=== PATIENT | male | born 2000 | race African-American/Black ===

== ENCOUNTER 2022-12-08 14:39 | Inpatient (IN) | payer MEDICAID, SELFPAY ==
[2022-12-08 14:55] VITALS: BMI 14.9
[2022-12-08 15:04] VITALS: BP 112/82; PULSE 72; RESP 15; TEMP 37.2; O2SAT 98
--- NOTE | 2022-12-08 15:26 | ED.C_ITS ---
HPI - Psych General: Chief Complaint: Psychiatric Symptoms Stated Complaint: 96 Hold Time Seen by Provider: 12/08/22 15:20 Source: patient Mode of arrival: other (Accompanied by law enforcement) History of Present Illness: 22-year-old male brought into the emergency room and accompanied by police. Family filled out 96-hour paperwork called and had certified at the court house. We read the patient the concerns from the affidavits in his responses simply shrugged his shoulders he does not feel these are big issues he denies any suicidal or homicidal ideation patient is moderately cachectic he does admit he has been losing weight lately when asked him about not taking care of himself he got a little bit teary-eyed and emotional but he was not confrontational. He denies suicidal or homicidal ideation every time he is asked. He states he simply does not understand why he was here he denies previously being hospitalized for mental health issues he has not seen by psychiatry he is not currently on any medications. No auditory or visual hallucinations. Associated symptoms: Deny auditory hallucinations, visual hallucinations, delusions, depression, homicidal ideation, suicidal ideation or racing thoughts Review of Systems Const: Denies: fever(s), chills, fatigue or malaise ENMT: Denies: throat pain, ear or mastoid pain, nasal discharge or nasal congestion Card: Denies: chest pain, edema, dyspnea on exertion or orthopnea Resp: Denies: dyspnea, productive cough or non-productive cough GI: Denies: abdominal pain, nausea, vomiting, hematemesis, coffee ground emesis, diarrhea, constipation, bloating, hematochezia or melena : Denies: flank pain, dysuria, urinary frequency or urinary urgency Skin/Breast: Denies: rash or pruritus Psych: Denies: depression, visual hallucinations, auditory hallucinations, suicidal ideation or homicidal ideation Physical Exam Const: COMMON NORMALS: no acute distress GENERAL APPEARANCE: cooperative and comfortable ORIENTATION/CONSCIOUSNESS: Yes awake, Yes oriented to person, Yes oriented to place and Yes oriented to time HENMT: COMMON NORMALS: normocephalic, atraumatic and hearing grossly normal bilaterally HEAD & SCALP: normocephalic and atraumatic Neuro: SENSORIUM/ORIENTATION: Yes oriented to person, Yes oriented to place and Yes oriented to time Psych: COMMON NORMALS: mental status grossly normal, Normal thought process present, cooperative and speech normal APPEARANCE: Yes grossly normal ATTITUDE: Yes Withdrawn affect present ACTIVITY/MOTOR BEHAVIOR: Yes Avoids eye contact (attititude/behavior) SPEECH: Yes normal speech MOOD & AFFECT: Yes depressed mood and Yes Flat affect present THOUGHT PROCESS: Normal thought process present THOUGHT CONTENT: No delusions Skin: COMMON NORMALS: no rashes or lesions noted GENERAL SKIN EXAM: no rashes or lesions noted Course Vital Signs: Vital signs: Vital Signs Temperature 98.5 F 12/13/22 21:11 Pulse Rate 102 H 12/14/22 05:52 Respiratory Rate 17 12/14/22 05:52 Blood Pressure 103/75 12/14/22 05:52 Pulse Oximetry 98 12/14/22 05:52 Oxygen Delivery Me thod Room Air 12/14/22 05:52 MDM - Psych Medical Decision Making Patient has a very flat affect he has not been engaging with family family saw the 96-hour hold from the court which is why he was brought in. Discussed with Dr. Aguayo. He wishes to go ahead and evaluate the patient we will admit him to the floor. Patient would answer most questions but at times when I challenged him about taking care of himself engaging with others she got very tearful and refused to give any further details or explanation. Medical Records I reviewed the patient's medical records. Lab Data I reviewed the patient's lab results. 12/08/22 16:11 12/08/22 16:11 Laboratory Results WBC 8.4 10^3/uL (4.0-10.0) 12/08/22 16:11 RBC 5.07 10^6/uL (4.1-5.3) 12/08/22 16:11 Hgb 15.6 g/dL (11.7-16.6) 12/08/22 16:11 Hct 44.1 % (42.0-52.0) 12/08/22 16:11 MCV 87.0 fl (80-94) 12/08/22 16:11 MCH 30.8 pg (28.0-34.0) 12/08/22 16:11 MCHC 35.4 g/dL (30.0-36.0) 12/08/22 16:11 RDW 12.5 % (12.1-15.1) 12/08/22 16:11 Plt Count 207 10^3/cmm (130-400) 12/08/22 16:11 MPV 8.8 fL (7.4-10.4) 12/08/22 16:11 Neut % (Auto) 75.8 % 12/08/22 16:11 Lymph % (Auto) 16.0 % 12/08/22 16:11 [place] % (Auto) 5.5 % 12/08/22 16:11 Eos % (Auto) 2.1 % 12/08/22 16:11 Baso % (Auto) 0.4 % 12/08/22 16:11 Neut # (Auto) 6.36 10^3/uL (1.8-7.7) 12/08/22 16:11 Lymph # (Auto) 1.3 10^3/uL (0.8-4.8) 12/08/22 16:11 [place] # (Auto) 0.5 10^3/uL (0.2-0.9) 12/08/22 16:11 Eos # (Auto) 0.2 10^3/uL (0.0-0.8) 12/08/22 16:11 Baso # (Auto) 0.0 10^3/uL (0.0-0.1) 12/08/22 16:11 Nucleated RBC % (auto) 0 % 12/08/22 16:11 Nucleated RBCs # 0.0 /100WBC 12/08/22 16:11 Sodium 139 mmol/L (136-145) 12/08/22 16:11 Potassium 4.3 mmol/L (3.5-5.1) 12/08/22 16:11 Chloride 102 mmol/L (98-107) 12/08/22 16:11 Carbon Dioxide 26 mmol/L (22-29) 12/08/22 16:11 Anion Gap 15.3 (5-19) 12/08/22 16:11 BUN 10 mg/dL (6-20) 12/08/22 16:11 Creatinine 0.6 mg/dL (0.7-1.2) L 12/08/22 16:11 GFR Calculation 200.3 mL/min (90-130) H 12/08/22 16:11 Glucose 96 mg/dL (65-115) 12/08/22 16:11 Calculated Osmolality 287 mOsm/kg (285-295) 12/08/22 16:11 Calcium 9.4 mg/dL (8.5-10.5) 12/08/22 16:11 Total Bilirubin 0.5 mg/dL (0.15-1.2) 12/08/22 16:11 AST 15 U/L (0-40) 12/08/22 16:11 ALT 16 U/L (0-41) 12/08/22 16:11 Alkaline Phosphatase 75 U/L (40-130) 12/08/22 16:11 Total Protein 7.5 g/dL (6.6-8.7) 12/08/22 16:11 Albumin 4.8 g/dL (3.5-5.2) 12/08/22 16:11 Globulin 2.7 g/dL (1.3-4.6) 12/08/22 16:11 Salicylates < 0.3 mg/dL (3-10) L 12/08/22 16:11 Acetaminophen < 5.0 ug/mL (10-30) L 12/08/22 16:11 Ethyl Alcohol < 10 mg/dL (0-10) 12/08/22 16:11 Discharge Plan Discharge Patient Disposition: Admitted As Inpatient Admit Provider: Fidel Aguayo Clinical Impression: Psychosis Condition: Stable Coding Level of Care Code ED [employer] for [employer]
[2022-12-08 16:21] LABS: Basophils % 0.4 %; Eosinophils # 0.2 10^3/uL (0.0-0.8); Eosinophils % 2.1 %; Hematocrit 44.1 % (42.0-52.0); Hemoglobin 15.6 g/dL (11.7-16.6); Lymphocytes # 1.3 10^3/uL (0.8-4.8); Mean Corpuscular HGB Conc 35.4 g/dL (30.0-36.0); Mean Corpuscular Hemoglobin 30.8 pg (28.0-34.0); Mean Platelet Volume 8.8 fL (7.4-10.4); Monocytes # 0.5 10^3/uL (0.2-0.9); Monocytes % 5.5 %; Neutrophils # 6.36 10^3/uL (1.8-7.7); Neutrophils % 75.8 %; Nucleated Red Blood Cells % 0 %; Platelet Count 207 10^3/cmm (130-400); Red Blood Count 5.07 10^6/uL (4.1-5.3); Red Cell Distribution Width 12.5 % (12.1-15.1); White Blood Count 8.4 10^3/uL (4.0-10.0)
[2022-12-08 16:36] LABS: Alanine Aminotransferase 16 U/L (0-41); Albumin Level 4.8 g/dL (3.5-5.2); Alkaline Phosphatase 75 U/L (40-130); Anion Gap 15.3 (5-19); Aspartate Amino Transferase 15 U/L (0-40); Blood Urea Nitrogen 10 mg/dL (6-20); Calcium 9.4 mg/dL (8.5-10.5); Carbon Dioxide 26 mmol/L (22-29); Chloride 102 mmol/L (98-107); Globulin 2.7 g/dL (1.3-4.6); Glomerular Filtration Rate 200.3 mL/min (90-130); Glucose 96 mg/dL (65-115); Osmolality Calculated 287 mOsm/kg (285-295); Potassium 4.3 mmol/L (3.5-5.1); Sodium 139 mmol/L (136-145); Total Bilirubin 0.5 mg/dL (0.15-1.2); Total Protein 7.5 g/dL (6.6-8.7)
[2022-12-08 16:41] LABS: Acetaminophen < 5.0 ug/mL (10-30); Alcohol Level < 10 mg/dL (0-10); Salicylate < 0.3 mg/dL (3-10)
--- NOTE | 2022-12-08 16:41 | PC.NURSE ---
96 hr patient rights reviewed with patient with [facility] security shift supervisor Mik @[phone]. Patient copy left at bedside. No needs or questions at this time.
[2022-12-08 20:37] LABS: Add Urine Microscopic? NO; Charge for UA Resulting for Rev
[2022-12-08 20:58] LABS: Amphetamines Screen Urine Negative (Negative); Barbiturates Screen Urine Negative (Negative); Benzodiazepines Screen Urine Negative (Negative); Bilirubin Urine Neg (Negative); Blood Urine Neg (Negative); Cocaine Screen Urine Negative (Negative); Glucose Urine UA Norm (Normal); Ketones Urine Negative (Negative); Leukocyte Esterase Urine Negative (Negative); Nitrate Urine Negative (Negative); Opiate Screen Urine Negative (Negative); PCP Screen Urine Negative (Negative); Protein Urine Neg (Negative); THC Screen Urine Positive (Negative); Urine Appearance Clear (CLEAR); Urine Color Light yellow (Yellow); Urobilinogen Urine Norm (Negative); pH Urine 7 (5-7)
[2022-12-08 21:05] VITALS: BP 134/93; PULSE 87; RESP 17; TEMP 36.8; O2SAT 99
--- NOTE | 2022-12-08 21:37 | PC.NURSE ---
Pt arrived to NPU w/RN and security at side. Pt presents highly anxious, speaks in mumbled tone. Cooperative with assessment.
[2022-12-09 06:00] VITALS: BP 103/70; PULSE 69; RESP 16; TEMP 36.8; O2SAT 100
--- NOTE | 2022-12-09 11:44 | W.PM.NPUH&PS ---
Providers/Chief Complaint Admitting Physician: Fidel Aguayo MD Chief Complaint: 96 Hold HPI NPU History of Present Illness Isamar Baca is a 22 year old male who presented to the emergency department with the following report: Chief Complaint: Psychiatric Symptoms Stated Complaint: 96 Hold Time Seen by Provider: 12/08/22 15:20 Source: patient Mode of arrival: other (Accompanied by law enforcement) History of Present Illness: 22-year-old male brought into the emergency room and accompanied by police. Family filled out 96-hour paperwork called and had certified at the court [facility]. We read the patient the concerns from the affidavits in his responses simply shrugged his shoulders he does not feel these are big issues he denies any suicidal or homicidal ideation patient is moderately cachectic he does admit he has been losing weight lately when asked him about not taking care of himself he got a little bit teary-eyed and emotional but he was not confrontational. He denies suicidal or homicidal ideation every time he is asked. He states he simply does not understand why he was here he denies previously being hospitalized for mental health issues he has not seen by psychiatry he is not currently on any medications. No auditory or visual hallucinations. Associated symptoms: Deny auditory hallucinations, visual hallucinations, delusions, depression, homicidal ideation, suicidal ideation or racing thoughts. He was admitted to the neuropsychiatric unit for definitive treatment of those issues. He presents today reporting that he has never been in a psychiatric hospital or receive psychiatric care. He has never been on psychiatric medications now or in the past and reports he does not know why he is here on a 96-hour hold. We discussed the affidavits suggesting that he has lost considerable amount of weight and is not taking care of himself and he only acknowledges that he has lost considerable weight recently. He reports that he vapes and that started in the last year or so but denied alcohol marijuana or any other illicit drug use. He has never been to rehab or had a DUI denies any drug and alcohol charges. He reports that he has never had any psychiatric symptoms that he is aware of and had no explanation for the sudden change in weight though he reports he is always been thin nor the recent change in his self-care. We discussed needing to reach out to his family for some collateral information which he did not refuse. Patient denied symptoms consistent with depression, anxiety, schizophrenia, bipolar, ADHD, PTSD or personality disorders. Psychiatric history: As above. Substance abuse history: As above. Family history: He denies any mental health or addiction issues that run in the family and denied any suicide attempts or completions in his family. Developmental history: He reports that he had no issues at and reports that he learned to walk and talk and met his developmental milestones on time. He reports that he did not need speech therapy, learning support, emotional support or special education classes. Psychosocial history: He reports that his parents were together when he was born but they did split up. He reports that his parents are both from [place]. He reports that he has a younger brother that is a product of that same union and that his mother does not have any other children but that his father has 2 other children. He reports that his childhood was fine and that there was no neglect or emotional, physical or sexual abuse. He denied any child protective services or any traumatic events throughout his life he denied any symptoms consistent with PTSD nightmares or flashbacks etc. He endorsed getting to the 10th grade and getting his GED and doing some college courses. He reports that he is heterosexual and his longest relationship was 3 years. He has never been , has never had children, has never been in the and he endorses being a Christianity. 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 Because that was in [place]. He reports he currently lives in a house with his mother and one of her coworkers. Legal history: He denied any legal peril. Medical history: He denies any issues other than his recent significant weight loss. Meds NPU Home Medications Medication Instructions Recorded Confirmed Last Taken Type No Known Home Medications 12/08/22 12/08/22 Unknown History Allergies Allergy/AdvReac Type Severity Reaction Status Date / Time No Known Allergies Allergy Verified 12/08/22 21:48 Mental Status Exam MSE Comments: This is a underweight/cachectic -[place]ian male with Twis that are somewhat unkempt in hospital scrubs with limited grooming and eye contact. He was notably pungent from across the room. No abnormal movements except for mild psychomotor retardation. Cooperative with exam in no acute distress. Speech was limited and decreased rate and volume. Mood described as fine, affect subdued and somewhat guarded. Thought process linear. Thought content: Patient denied suicidal or homicidal ideation, there were no delusions reported but he seems somewhat guarded/paranoid, he denied auditory or visual hallucinations. Attention and concentration appeared intact and memory seemed reliable but was limited and without meat, but none were formally tested. He is alert and oriented to person and place. Insight and judgment appear limited impulse control appears limited Vitals/I&O/Wt Last Vital Signs Temp 98.2 F 12/09/22 06:00 Pulse 69 12/09/22 06:00 Resp 16 12/09/22 06:00 BP 103/70 12/09/22 06:00 Pulse Ox 100 12/09/22 06:00 O2 Del Method Room Air 12/09/22 06:00 Weight last 48 hrs Weight 49.895 kg Data NPU 12/08/22 16:11 12/08/22 16:11 A&P Assessment and plan (1) Psychosis: (2) Schizophreniform disorder: Plan This is a 22-year-old male of descent who presents on a 96-hour hold reporting a lack of knowledge as to what the concerns would be but reports of recent change in appetite with weight loss and poor self-care presenting looking fairly unkempt. 1. Continue off medication for now. 2. Continue every 15 minute checks for safety. 3. Encourage individual, group and milieu therapy. 4. We will get collateral information from family to get a sense of what other symptoms they may have seen. Patient presents unkempt and raises concern for possible prodromal schizophrenia with significant presence of negative symptoms.. Involuntary Hold Information 96 Hour Hold: 96 Hour Involuntary Admission: Yes 96 Hour Hold Ending Date: 12/14/22 96 Hour Hold Ending Time: 15:16 Attestations NPU Medical Necessity Statement*: Inpatient hospitalization is medically necessary and the clinically appropriate intervention at this time. We will monitor medications and make changes as indicated. He will be in the hospital for over 2 midnights. Likely length of stay 4 to 6 days. Coding Level of Care Code Acute Code for g Fwd Diagnoses Psychosis F29 Schizophreniform disorder F20.81
[2022-12-09 14:00] VITALS: BP 103/69; PULSE 90; RESP 15; TEMP 36.8; O2SAT 98
[2022-12-09 20:47] VITALS: BP 108/71; PULSE 90; RESP 16; TEMP 37; O2SAT 95
[2022-12-10 06:00] VITALS: BP 103/68; PULSE 112; RESP 17; TEMP 36.8; O2SAT 98
[2022-12-10 14:00] VITALS: BP 110/74; PULSE 85; RESP 15; TEMP 36.9; O2SAT 98
--- NOTE | 2022-12-10 17:13 | P.NPUPN_ITS ---
Subjective NPU Subjective: Patient presented today reporting that he is feeling fine. He now has backtracked on comments about weight loss now reporting that its been limited and insignificant weight loss. We discussed concerns that this presentation represents schizophreniform versus early schizophrenia and vet and really appears he would benefit from an antipsychotic like Invega or or Abilify. We discussed the risks, benefits and alternatives of those medications and is unclear if he understood and he refused to consider medication as is documented in this note. He spent most of the day isolated per staff at this sports book writer's observation. He spent most of the time in his room with his blanket over his head and propped up underneath almost like a tent. Mental Status Exam MSE Comments: This is a underweight/cachectic -Vietnamese male with Twis that are somewhat unkempt in hospital scrubs with limited grooming and eye contact. He was notably pungent from across the room. No abnormal movements except for mild psychomotor retardation. Cooperative with exam in no acute distress. Speech was limited and decreased rate and volume. Mood described as fine, affect subdued and somewhat guarded. Thought process linear. Thought content: Patient denied suicidal or homicidal ideation, there were no delusions reported but he seems somewhat guarded/paranoid, he denied auditory or visual hallucinations. Attention and concentration appeared intact and memory seemed reliable but was limited and without meat, but none were formally tested. He is alert and oriented to person and place. Insight and judgment appear limited impulse control appears limited Vitals/I&O/Wt Last Vital Signs Temp 98.8 F 12/10/22 20:40 Pulse 88 12/10/22 20:40 Resp 16 12/10/22 20:40 BP 117/80 12/10/22 20:40 Pulse Ox 98 12/10/22 20:40 O2 Del Method Room Air 12/10/22 20:40 Data NPU 12/08/22 16:11 12/08/22 16:11 A&P Assessment and plan (1) Psychosis: (2) Schizophreniform disorder: Plan This is a 22-year-old male of descent who presents on a 96-hour hold reporting a lack of knowledge as to what the concerns would be but reports of recent change in appetite with weight loss and poor self-care presenting looking fairly unkempt. 1. Continue off medication for now. We will offer him antipsychotic either Abilify or Invega daily. 2. Continue every 15 minute checks for safety. 3. Encourage individual, group and milieu therapy. 4. We will get collateral information from family to get a sense of what other symptoms they may have seen. Patient presents unkempt and raises concern for possible prodromal schizophrenia with significant presence of negative symptoms. Question of whether his current functioning would warrant an extension to a 21- day hold. Involuntary Hold Information 96 Hour Hold: 96 Hour Involuntary Admission: Yes 96 Hour Hold Ending Date: 12/14/22 96 Hour Hold Ending Time: 15:16 Attestations NPU Medical Necessity Statement*: Inpatient hospitalization is medically necessary and the clinically appropriate intervention at this time. We will monitor medications and make changes as indicated. Likely length of stay 4 to 6 days. Coding Level of Care Code Acute Code for Chg Fwd Diagnoses Psychosis F29 Schizophreniform disorder F20.81
[2022-12-10 20:40] VITALS: BP 117/80; PULSE 88; RESP 16; TEMP 37.1; O2SAT 98
[2022-12-11 06:00] VITALS: BP 112/77; PULSE 109; RESP 17; O2SAT 98
--- NOTE | 2022-12-11 07:32 | P.NPUPN_ITS ---
Subjective NPU Subjective: Patient presents today reporting that he is feeling okay. He continues to be resistant to the idea of medication. He continues to deny any symptoms that would be consistent with our concerns or schizophrenia. He denies odd thinking, magical thinking, thought insertion, the ability to read people's minds, paranoia etc. but it is unclear whether this represents what he feels needs to be said. He continues to deny feeling that there is a need for medication we talked about continuing to talk with his family to make sure were clear about his presentation. Mental Status Exam MSE Comments: This is a underweight/cachectic -Luxembourger male with Twis that are somewhat unkempt in hospital scrubs with limited grooming and eye contact. He was notably pungent from across the room. No abnormal movements except for mild psychomotor retardation. Cooperative with exam in no acute distress. Speech was limited and decreased rate and volume. Mood described as fine, affect subdued and somewhat guarded. Thought process linear. Thought content: Patient denied suicidal or homicidal ideation, there were no delusions reported but he seems somewhat guarded/paranoid, he denied auditory or visual hallucinations. Attention and concentration appeared intact and memory seemed reliable but was limited and without meat, but none were formally tested. He is alert and oriented to person and place. Insight and judgment appear limited impulse control appears limited Vitals/I&O/Wt Last Vital Signs Temp 98.8 F 12/10/22 20:40 Pulse 109 H 12/11/22 06:00 Resp 17 12/11/22 06:00 BP 112/77 12/11/22 06:00 Pulse Ox 98 12/11/22 06:00 O2 Del Method Room Air 12/11/22 06:00 Data NPU 12/08/22 16:11 12/08/22 16:11 A&P Assessment and plan (1) Psychosis: (2) Schizophreniform disorder: Plan This is a 22-year-old male of descent who presents on a 96-hour hold reporting a lack of knowledge as to what the concerns would be but reports of recent change in appetite with weight loss and poor self-care presenting looking fairly unkempt. 1. Continue off medication for now. We will offer him antipsychotic either Ab ilify or Invega daily. He continues to refuse. 2. Continue every 15 minute checks for safety. 3. Encourage individual, group and milieu therapy. 4. We will get collateral information from family to get a sense of what other symptoms they may have seen. Patient presents unkempt and raises concern for possible prodromal schizophrenia with significant presence of negative symptoms. Question of whether his current functioning would warrant an extension to a 21- day hold. Involuntary Hold Information 96 Hour Hold: 96 Hour Involuntary Admission: Yes 96 Hour Hold Ending Date: 12/14/22 96 Hour Hold Ending Time: 15:16 Attestations NPU Medical Necessity Statement*: Inpatient hospitalization is medically necessary and the clinically appropriate intervention at this time. We will monitor medications and make changes as indicated. Likely length of stay 3-5 days. Coding Level of Care Code Acute Code for [facility] Fwd Diagnoses Psychosis F29 Schizophreniform disorder F20.81
[2022-12-11 14:00] VITALS: BP 112/77; PULSE 85; RESP 16; TEMP 37.1; O2SAT 98
--- NOTE | 2022-12-11 20:20 | PC.NURSE ---
PT IN ROOM WHILE ASSESSMENT WAS COMPLETED. PT DENIES SI/HI AND AVH AT THIS TIME. PT CONTINUES TO TELL THE STORY OF THE RESIDENTIAL AND HOW WAS MISTREATED IN THE [facility]. THIS RN STOPPED HIM AND INFORMED HIM HE HAS TOLD ME THAT STORY MANY TIMES. PT THEN STOPPED AND SAID. WELL THEN JUST NOTE I AM HOMICIDAL IF I GO BACK TO THAT RESIDENTIAL AND THEY TREAT ME THAT WAY AGAIN. THIS RN INFORMED PT IT WOULD BE NOTED.
[2022-12-11 22:00] VITALS: BP 103/74; PULSE 94; RESP 18; TEMP 37.1; O2SAT 97
[2022-12-12 06:00] VITALS: RESP 14
[2022-12-12 13:54] VITALS: BP 100/68; PULSE 112; RESP 16; TEMP 36.6; O2SAT 99
[2022-12-12] MEDS: multivitamin therapeutic Tablet 1 TAB PO (16:57)
[2022-12-12] MEDS: cyanocobalamin 1,000 mcg Tablet 1000 MCG PO (16:57)
[2022-12-12] MEDS: pyridoxine 50 mg Tablet PO (16:57)
[2022-12-12] MEDS: omega-3 fatty acids 1,000 mg Capsule 1000 MG PO (16:57)
[2022-12-12] MEDS: ergocalciferol (vitamin D2) 50,000 Unit Capsule 50000 UNIT PO (16:57)
--- NOTE | 2022-12-12 18:08 | P.NPUPN_ITS ---
Subjective NPU Subjective: Patient presented today reporting that he is doing fine. We continue the conversation about his circumstance and what we need to consider a 21-day hold for his safety. This has been advanced further by getting an accurate weight today which was 88 pounds. We discussed the fact that he has been eating reasonably since he got here meaning that he did not do an accurate weight when he came in here and may have weighed less. We continue to try to question what led to this significant dietary change and weight loss phenomena including whether he felt he was being poisoned or something reflective of a psychotic nature and he continues to deny he continues to refuse a plan to initiate me dication. Mental Status Exam MSE Comments: This is a underweight/cachectic -[place] male with Twis that are somewhat unkempt in hospital scrubs with limited grooming and eye contact. He was notably pungent from across the room. No abnormal movements except for mild psychomotor retardation. Cooperative with exam in no acute distress. Speech was limited and decreased rate and volume. Mood described as fine, affect subdued and somewhat guarded. Thought process linear. Thought content: Patient denied suicidal or homicidal ideation, there were no delusions reported but he seems somewhat guarded/paranoid, he denied auditory or visual hallucinations. Attention and concentration appeared intact and memory seemed reliable but was limited and without meat, but none were formally tested. He is alert and oriented to person and place. Insight and judgment appear limited impulse control appears limited Vitals/I&O/Wt Last Vital Signs Temp 98.6 F 12/12/22 20:59 Pulse 89 12/12/22 20:59 Resp 17 12/12/22 20:59 BP 110/76 12/12/22 20:59 Pulse Ox 97 12/12/22 20:59 O2 Del Method Room Air 12/12/22 20:59 Weight last 48 hrs Weight 40.143 kg Data NPU 12/08/22 16:11 12/08/22 16:11 A&P Assessment and plan (1) Psychosis: (2) Schizophreniform disorder: Plan This is a 22-year-old male of descent who presents on a 96-hour hold re porting a lack of knowledge as to what the concerns would be but reports of recent change in appetite with weight loss and poor self-care presenting looking fairly unkempt. 1. Continue off medication for now. We will offer him antipsychotic either Abilify or Invega daily. He continues to refuse. 2. Continue every 15 minute checks for safety. 3. Encourage individual, group and milieu therapy. 4. We will get collateral information from family to get a sense of what other symptoms they may have seen. Patient presents unkempt and raises concern for possible prodromal schizophrenia with significant presence of negative symptoms. Question of whether his current functioning would warrant an extension to a 21- day hold. 5. Appreciate spread cutter/dietary consult. Started some vitamins that were recommended. Also added dietary changes. Weight at 88 pounds at 6 foot continue to raise questions that there are parts of his story of why he stopped eating that he is not sharing though it could be part of a negative symptom cluster of schizophreniform/schizophrenia. Involuntary Hold Information 96 Hour Hold: 96 Hour Involuntary Admission: Yes 96 Hour Hold Ending Date: 12/14/22 96 Hour Hold Ending Time: 15:16 Attestations NPU Medical Necessity Statement*: Inpatient hospitalization is medically necessary and the clinically appropriate intervention at this time. We will monitor medications and make changes as indicated. Likely length of stay 2-4 days. Coding Level of Care Code Acute Code for Chg Fwd Diagnoses Psychosis F29 Schizophreniform disorder F20.81
[2022-12-12 20:59] VITALS: BP 110/76; PULSE 89; RESP 17; TEMP 37; O2SAT 97
--- NOTE | 2022-12-12 21:15 | PC.NURSE ---
IN BED READING BOOK, AROUSE TO VOICE. PT CONTINUES TO BE WITHDRAWN THIS SHIFT. PT DENIES PAIN, SI/HI AND AVH AT THIS TIME. EDUCATION PROVIDED ON NUTRITIION AND SUPPLEMENTATION. ENCOURAGED TO COME UP FOR A SNACK AND AN ENSURE IN ABOUT 20 MINUTES, PT STATES HE WILL COME AND GET IT. SPOKE ABOUT HIS RECENT WEIGHT LOSS AND IF HE LIKED THE SUPPLEMENTS THAT WERE ORDERED LIKE THE 2CAL, PT STATES ITS GOOD, I'LL DRINK IT. DENIES ANXIETY OR NEED FOR SLEEP AID TONIGHT. ALL QUESTIONS WERE ANSWERED AND SUPPORT WAS VOICED. PT DID COME UP TO NURSES STATION AND HE RECEIVED HIS ENSURE AND SNACKS.
[2022-12-13] MEDS: pyridoxine 50 mg Tablet PO (08:30)
[2022-12-13] MEDS: multivitamin therapeutic Tablet 1 TAB PO (08:31)
[2022-12-13] MEDS: cyanocobalamin 1,000 mcg Tablet 1000 MCG PO (08:31)
[2022-12-13] MEDS: omega-3 fatty acids 1,000 mg Capsule 1000 MG PO (08:31)
[2022-12-13 14:00] VITALS: BP 101/67; PULSE 102; RESP 15; TEMP 37.1; O2SAT 97
--- NOTE | 2022-12-13 18:41 | W.PM.NPUPNS ---
Subjective NPU Subjective: Patient presented today reporting that he is doing okay. He continues to deny a need for medication. We agreed that we would have a meeting with his mother to try to get some greater insight into his situation given his lack of verbosity. We talked about the 21-day hold which would be likely submitting the paperwork tomorrow but we would like to get a sense of mom's position about the weight loss/anorexia and what other symptoms seem to be present that may be he is not being completely transparent about. Mental Status Exam MSE Comments: This is a underweight/cachectic -Citizen Of [place] male with twists that are somewhat unkempt in hospital scrubs with limited grooming and eye contact. No abnormal movements except for mild psychomotor retardation. Cooperative with exam in no acute distress. Speech was limited and decreased rate and volume. Mood described as fine, affect subdued and somewhat guarded. Thought process linear. Thought content: Patient denied suicidal or homicidal ideation, there were no delusions reported but he seems somewhat guarded/paranoid, he denied auditory or visual hallucinations. Attention and concentration appeared intact and memory seemed reliable but was limited and without meat, but none were formally tested. He is alert and oriented to person and place. Insight and judgment appear limited impulse control appears limited Vitals/I&O/Wt Last Vital Signs Temp 98.5 F 12/13/22 21:11 Pulse 91 12/13/22 21:11 Resp 16 12/13/22 21:11 BP 99/66 12/13/22 21:11 Pulse Ox 98 12/13/22 21:11 O2 Del Method Room Air 12/13/22 21:11 Weight last 48 hrs Weight 40.143 kg Data NPU 12/08/22 16:11 12/08/22 16:11 A&P Assessment and plan (1) Psychosis: (2) Schizophreniform disorder: Plan This is a 22-year-old male of descent who presents on a 96-hour hold reporting a lack of knowledge as to what the concerns would be but reports of recent change in appetite with weight loss and poor self-care presenting looking fairly unkempt. 1. Continue off medication for now. We will offer him antipsychotic either Abilify or Invega daily. He continues to refuse. 2. Continue every 15 minute checks for safety. 3. Encourage individual, group and milieu therapy. 4. We will get collateral information from family to get a sense of what other symptoms they may have seen. Patient presents unkempt and raises concern for possible prodromal schizophrenia with significant presence of negative symptoms. Question of whether his current functioning would warrant an extension to a 21-day hold. 5. Appreciate cosmetic consultant/dietary consult. Started some vitamins that were recommended. Also added dietary changes. Weight at 88 pounds at 6 foot continue to raise questions that there are parts of his story of why he stopped eating that he is not sharing though it could be part of a negative symptom cluster of schizophreniform/schizophrenia. 7. Discussed getting a family meeting with mother to make sure there are no symptoms we are missing to explore the appropriateness of 21-day hold but we managed his sequela of his likely thought disorder with the anorexia. Involuntary Hold Information 96 Hour Hold: 96 Hour Involuntary Admission: Yes 96 Hour Hold Ending Date: 12/14/22 96 Hour Hold Ending Time: 15:16 Attestations NPU Medical Necessity Statement*: Inpatient hospitalization is medically necessary and the clinically appropriate intervention at this time. We will monitor medications and make changes as indicated. Likely length of stay 2-4 days. Question as to whether there will be a 21-day hold extending the time here still exists. Coding Level of Care Code Acute Code for [facility] Fwd Diagnoses Psychosis F29 Schizophreniform disorder F20.81
[2022-12-13 21:11] VITALS: BP 99/66; PULSE 91; RESP 16; TEMP 36.9; O2SAT 98
[2022-12-14 05:52] VITALS: BP 103/75; PULSE 102; RESP 17; O2SAT 98
[2022-12-14] MEDS: cyanocobalamin 1,000 mcg Tablet 1000 MCG PO (09:59)
[2022-12-14] MEDS: pyridoxine 50 mg Tablet PO (09:59)
[2022-12-14] MEDS: omega-3 fatty acids 1,000 mg Capsule 1000 MG PO ×2 (09:59→21:24)
[2022-12-14] MEDS: multivitamin therapeutic Tablet 1 TAB PO (09:59)
[2022-12-14 14:00] VITALS: BP 100/68; PULSE 97; RESP 15; TEMP 37.1; O2SAT 97
--- NOTE | 2022-12-14 16:45 | W.PM.NPUPNS ---
Subjective NPU Subjective: Patient presented today reporting that he is doing okay. However his mother came in reported that all the concerns that we have are valid. She reports that he has become very socially isolative, that he is not taking any phone calls from friends, that he is not showering or doing his hygiene and even with her attempted insistence, that he is not actually enrolled in school and that he is pretending to be enrolled in she brought his computer and he went on the computer and then reported that they must of locked him out because he missed a test. She reports the weight loss has been dramatic and that he has never been as skinny as he is now. He has no real answers to these questions or concerns as to why he has had this change. We discussed the 21-day hold hearing tomorrow and that one of our goals for this hospitalization is for him to gain some of the weight back and that we will go to every other day weights. Mental Status Exam MSE Comments: This is a underweight/cachectic -[place] male with twists that are somewhat unkempt in hospital scrubs with limited grooming and eye contact. No abnormal movements except for mild psychomotor retardation. Cooperative with exam in no acute distress. Speech was limited and decreased rate and volume. Mood described as okay, affect subdued and somewhat guarded. Thought process linear. Thought content: Patient denied suicidal or homicidal ideation, there were no delusions reported but he seems somewhat guarded/paranoid, he denied auditory or visual hallucinations. Attention and concentration appeared intact and memory seemed reliable but was limited and without meat, but none were formally tested. He is alert and oriented to person and place. Insight and judgment appear limited impulse control appears limited Vitals/I&O/Wt Last Vital Signs Temp 98.8 F 12/14/22 14:00 Pulse 97 12/14/22 14:00 Resp 15 12/14/22 14:00 BP 100/68 12/14/22 14:00 Pulse Ox 97 12/14/22 14:00 O2 Del Method Room Air 12/14/22 05:52 Data NPU 12/08/22 16:11 12/08/22 16:11 A&P Assessment and plan (1) Psychosis: (2) Schizophreniform disorder: Plan This is a 22-year-old male of descent who presents on a 96-hour hold reporting a lack of knowledge as to what the concerns would be but reports of recent change in appetite with weight loss and poor self-care presenting looking fairly unkempt. 1. Continue off medication for now. We will offer him antipsychotic either Abilify or Invega daily. He continues to refuse. 2. Continue every 15 minute checks for safety. 3. Encourage individual, group and milieu therapy. 4. We will get collateral information from family to get a sense of what other symptoms they may have seen. Patient presents unkempt and raises concern for possible prodromal schizophrenia with significant presence of negative symptoms. Question of whether his current functioning would warrant an extension to a 21-day hold. 5. Appreciate morning news anchor/dietary consult. Started some vitamins that were recommended. Also added dietary changes. Weight at 88 pounds at 6 foot continue to raise questions that there are parts of his story of why he stopped eating that he is not sharing though it could be part of a negative symptom cluster of schizophreniform/schizophrenia. 7. Filed for a 21-day hold we can assist with managing his sequela of his likely thought disorder with the anorexia. The hearing will be tomorrow. Involuntary Hold Information 96 Hour Hold: 96 Hour Involuntary Admission: Yes 96 Hour Hold Ending Date: 12/14/22 96 Hour Hold Ending Time: 15:16 Attestations NPU Medical Necessity Statement*: Inpatient hospitalization is medically necessary and the clinically appropriate intervention at this time. We will monitor medications and make changes as indicated. Likely length of stay 7-10 days. Question as to whether there will be a 21-day hold extending the time here still exists. Coding Level of Care Code Acute Code for [facility] Fwd Diagnoses Psychosis F29 Schizophreniform disorder F20.81
[2022-12-14 22:00] VITALS: BP 107/72; PULSE 99; RESP 17; O2SAT 98
[2022-12-15 06:00] VITALS: BP 102/70; PULSE 109; RESP 16; O2SAT 97
[2022-12-15] MEDS: omega-3 fatty acids 1,000 mg Capsule 1000 MG PO ×2 (08:58→21:31)
[2022-12-15] MEDS: pyridoxine 50 mg Tablet PO (08:58)
[2022-12-15] MEDS: cyanocobalamin 1,000 mcg Tablet 1000 MCG PO (08:58)
[2022-12-15] MEDS: multivitamin therapeutic Tablet 1 TAB PO (08:58)
[2022-12-15 14:00] VITALS: BP 109/76; PULSE 96; RESP 16; TEMP 37.1; O2SAT 97
[2022-12-15 15:25] LABS: Anion Gap 13.2 (5-19); Carbon Dioxide 31 mmol/L (22-29); Chloride 100 mmol/L (98-107); Potassium 4.2 mmol/L (3.5-5.1); Sodium 140 mmol/L (136-145)
--- NOTE | 2022-12-15 16:53 | W.PM.NPUPNS ---
Subjective NPU Subjective: Patient presented today reporting that he did not want to go to the [facility]. Returned and discussed with him that he was placed on an extended hold. He identified that he needed to make some changes and has been reportedly doing a little better with his eating. We will continue to follow the every other day weights to make sure that he is utilizing the vitamins, nutritional supplements and meal strategies of the dietitian/liaison inspection laboratory assistant. We will consider whether there are other medical concerns that might be missed. He acknowledges weight gain to 91 pounds. We discussed healthy again not being too dramatic given the risks for refeeding syndromes. Mental Status Exam MSE Comments: This is a underweight/cachectic -[place] male with twists that are somewhat unkempt in hospital scrubs with limited grooming and eye contact. No abnormal movements except for mild psychomotor retardation. Cooperative with exam in no acute distress. Speech was limited and decreased rate and volume. Mood described as okay, affect subdued and somewhat guarded. Thought process linear. Thought content: Patient denied suicidal or homicidal ideation, there were no delusions reported but he seems somewhat guarded/paranoid, he denied auditory or visual hallucinations. Attention and concentration appeared intact and memory seemed reliable but was limited and without meat, but none were formally tested. He is alert and oriented to person and place. Insight and judgment appear limited impulse control appears limited Vitals/I&O/Wt Last Vital Signs Temp 98.8 F 12/15/22 14:00 Pulse 105 H 12/15/22 20:41 Resp 17 12/15/22 20:41 BP 118/85 12/15/22 20:41 Pulse Ox 98 12/15/22 20:41 O2 Del Method Room Air 12/15/22 20:41 Weight last 48 hrs Weight 41.39 kg Data NPU 12/08/22 16:11 12/15/22 14:33 A&P Assessment and plan (1) Psychosis: (2) Schizophreniform disorder: Plan This is a 22-year-old male of descent who presents on a 96-hour hold reporting a lack of knowledge as to what the concerns would be but reports of recent change in appetite with weight loss and poor self-care presenting looking fairly unkempt. 1. Continue off medication for now. We will offer him antipsychotic either Abilify or Invega daily. He continues to refuse. 2. Continue every 15 minute checks for safety. 3. Encourage individual, group and milieu therapy. 4. We will get collateral information from family to get a sense of what other symptoms they may have seen. Patient presents unkempt and raises concern for possible prodromal schizophrenia with significant presence of negative symptoms. Question of whether his current functioning would warrant an extension to a 21-day hold. 5. Appreciate liaison inspection laboratory assistant/dietary consult. Started some vitamins that were recommended. Also added dietary changes. Weight at 88 pounds at 6 foot continue to raise questions that there are parts of his story of why he stopped eating that he is not sharing though it could be part of a negative symptom cluster of schizophreniform/schizophrenia. We will do every other day weights. 7. Filed for a 21-day hold we can assist with managing his sequela of his likely thought disorder with the anorexia. The hearing was today 12/15/2022 and a 21-day hold was granted. Involuntary Hold Information 96 Hour Hold: 96 Hour Involuntary Admission: Yes 96 Hour Hold Ending Date: 12/14/22 96 Hour Hold Ending Time: 15:16 Attestations NPU Medical Necessity Statement*: Inpatient hospitalization is medically necessary and the clinically appropriate intervention at this time. We will monitor medications and make changes as indicated. Likely length of stay 7-10 days. Coding Level of Care Code Acute Code for [facility] Fwd Diagnoses Psychosis F29 Schizophreniform disorder F20.81
[2022-12-15 20:41] VITALS: BP 118/85; PULSE 105; RESP 17; O2SAT 98
[2022-12-16 06:00] VITALS: BP 105/69; PULSE 121; RESP 18; TEMP 36.9; O2SAT 91
[2022-12-16] MEDS: cyanocobalamin 1,000 mcg Tablet 1000 MCG PO (08:51)
[2022-12-16] MEDS: pyridoxine 50 mg Tablet PO (08:51)
[2022-12-16] MEDS: multivitamin therapeutic Tablet 1 TAB PO (08:51)
[2022-12-16] MEDS: omega-3 fatty acids 1,000 mg Capsule 1000 MG PO ×2 (08:51→21:47)
[2022-12-16 10:00] VITALS: BMI 12.3
[2022-12-16 14:00] VITALS: BP 100/71; PULSE 96; RESP 14; TEMP 36.9; O2SAT 98
--- NOTE | 2022-12-16 17:42 | P.NPUPN_ITS ---
Subjective NPU Subjective: Patient presented today reporting that he is doing fine and that his weight today was basically the same that it was a couple days ago. We discussed the fact that we really feel a medication that might help with his thought disorder and help with his appetite is an order at this time and that we currently now secondary to the ruling for 21-day hold yesterday have permission for a forced medication protocol which we would prefer not to. We suggest that he speak with his mother and that we should speak with his mother and encourage some medication options to help ameliorate the situation. We discussed the likelihood of a forced medication tomorrow. Mental Status Exam MSE Comments: This is a underweight/cachectic -[place] male with twists that are somewhat unkempt in hospital scrubs with limited grooming and eye contact. No abnormal movements except for mild psychomotor retardation. Cooperative with exam in no acute distress. Speech was limited and decreased rate and volume. Mood described as okay, affect subdued and somewhat guarded. Thought process linear. Thought content: Patient denied suicidal or homicidal ideation, there were no delusions reported but he seems somewhat guarded/paranoid, he denied auditory or visual hallucinations. Attention and concentration appeared intact and memory seemed reliable but was limited and without meat, but none were forma lly tested. He is alert and oriented to person and place. Insight and judgment appear limited impulse control appears limited Vitals/I&O/Wt Last Vital Signs Temp 98.9 F 12/16/22 20:20 Pulse 112 H 12/16/22 20:20 Resp 16 12/16/22 20:20 BP 106/71 12/16/22 20:20 Pulse Ox 97 12/16/22 20:20 O2 Del Method Room Air 12/16/22 20:20 12/16/22 12/16/22 12/17/22 14:59 22:59 06:59 Intake Total 480 / 480 Balance 480 / 480 Weight last 48 hrs Weight 41.368 kg Weight 41.39 kg Data NPU 12/08/22 16:11 12/15/22 14:33 A&P Assessment and plan (1) Psychosis: (2) Schizophreniform disorder: Plan This is a 22-year-old male of descent who presents on a 96-hour hold reporting a lack of knowledge as to what the concerns would be but reports of recent change in appetite with weight loss and poor self-care presenting looking fairly unkempt. 1. Continue off medication for now. We will offer him antipsychotic either Abilify or Invega daily. He continues to refuse. We discussed the likelihood of forced medication tomorrow. 2. Continue every 15 minute checks for safety. 3. Encourage individual, group and milieu therapy. 4. We will get collateral information from family to get a sense of what other symptoms they may have seen. Patient presents unkempt and raises concern for possible prodromal schizophrenia with significant presence of negative symptoms. Question of whether his current functioning would warrant an extension to a 21- day hold. 5. Appreciate arc welding machine operator/dietary consult. Started some vitamins that were recommended. Also added dietary changes. Weight at 88 pounds at 6 foot continue to raise questions that there are parts of his story of why he stopped eating that he is not sharing though it could be part of a negative symptom cluster of schizophreniform/schizophrenia. We will do every other day weights. 7. Filed for a 21-day hold we can assist with managing his sequela of his likely thought disorder with the anorexia. The hearing was today 12/15/2022 and a 21-day hold was granted. Involuntary Hold Information 96 Hour Hold: 96 Hour Involuntary Admission: Yes 96 Hour Hold Ending Date: 12/14/22 96 Hour Hold Ending Time: 15:16 Attestations NPU Medical Necessity Statement*: Inpatient hospitalization is medically necessary and the clinically appropriate intervention at this time. We will monitor medications and make changes as indicated. Likely length of stay 7-10 days. Coding Level of Care Code Acute Code for [facility] Fwd Diagnoses Psychosis F29 Schizophreniform disorder F20.81
[2022-12-16 20:20] VITALS: BP 106/71; PULSE 112; RESP 16; TEMP 37.2; O2SAT 97
[2022-12-17 06:00] VITALS: BP 104/75; PULSE 99; RESP 18; TEMP 36.7; O2SAT 98
[2022-12-17] MEDS: omega-3 fatty acids 1,000 mg Capsule 1000 MG PO ×2 (09:29→20:43)
[2022-12-17] MEDS: multivitamin therapeutic Tablet 1 TAB PO (09:29)
[2022-12-17] MEDS: cyanocobalamin 1,000 mcg Tablet 1000 MCG PO (09:29)
[2022-12-17] MEDS: pyridoxine 50 mg Tablet PO (09:29)
--- NOTE | 2022-12-17 13:30 | W.PM.NPUPNS ---
Subjective NPU Subjective: Patient presented today reporting that he is doing fine. We discussed the fact that we really feel a medication that might help with his thought disorder and help with his appetite. He agreed that he would take either Abilify or invega today after discussing with his mother. We explained that if he were to refuse we would give him an injection. Mental Status Exam MSE Comments: This is a underweight/cachectic -[place]i male with twists that are somewhat unkempt in hospital scrubs with limited grooming and eye contact. No abnormal movements except for mild psychomotor retardation. Cooperative with exam in no acute distress. Speech was limited and decreased rate and volume. Mood described as okay, affect subdued and somewhat guarded. Thought process linear. Thought content: Patient denied suicidal or homicidal ideation, there were no delusions reported but he seems somewhat guarded/paranoid, he denied auditory or visual hallucinations. Attention and concentration appeared intact and memory seemed reliable but was limited and without meat, but none were formally tested. He is alert and oriented to person and place. Insight and judgment appear limited impulse control appears limited Vitals/I&O/Wt Last Vital Signs Temp 98.1 F 12/17/22 06:00 Pulse 99 12/17/22 06:00 Resp 18 12/17/22 06:00 BP 104/75 12/17/22 06:00 Pulse Ox 98 12/17/22 06:00 O2 Del Method Room Air 12/17/22 06:00 Weight last 48 hrs Weight 41.447 kg Weight 41.447 kg Weight 41.368 kg Data NPU 12/08/22 16:11 12/15/22 14:33 A&P Assessment and plan (1) Psychosis: (2) Schizophreniform disorder: Plan This is a 22-year-old male of descent who presents on a 96-hour hold reporting a lack of knowledge as to what the concerns would be but reports of recent change in appetite with weight loss and poor self-care presenting looking fairly unkempt. 1. Continue off medication for now. We will offer him antipsychotic either Abilify 5 mg or Invega 3 mg daily on forced medication protocol. 2. Continue every 15 minute checks for safety. 3. Encourage individual, group and milieu therapy. 4. We will get collateral information from family to get a sense of what other symptoms they may have seen. Patient presents unkempt and raises concern for possible prodromal schizophrenia with significant presence of negative symptoms. Question of whether his current functioning would warrant an extension to a 21-day hold. 5. Appreciate construction inspector/dietary consult. Started some vitamins that were recommended. Also added dietary changes. Weight at 88 pounds at 6 foot continue to raise questions that there are parts of his story of why he stopped eating that he is not sharing though it could be part of a negative symptom cluster of schizophreniform/schizophrenia. We will do every other day weights. 7. Filed for a 21-day hold we can assist with managing his sequela of his likely thought disorder with the anorexia. The hearing was 12/15/2022 and a 21-day hold was granted. Involuntary Hold Information 96 Hour Hold: 96 Hour Involuntary Admission: Yes 96 Hour Hold Ending Date: 12/14/22 96 Hour Hold Ending Time: 15:16 Attestations NPU Medical Necessity Statement*: Inpatient hospitalization is medically necessary and the clinically appropriate intervention at this time. We will monitor medications and make changes as indicated. Likely length of stay 6-9 days. Coding Level of Care Code Acute Code for [facility] Fwd Diagnoses Psychosis F29 Schizophreniform disorder F20.81
[2022-12-17 14:00] VITALS: BP 89/66; PULSE 97; RESP 16; TEMP 36.7; O2SAT 97
[2022-12-17] MEDS: ARIPiprazole 10 mg Tablet 5 MG PO (17:21)
[2022-12-17 20:29] VITALS: BP 138/94; PULSE 94; RESP 16; TEMP 36.8; O2SAT 98
[2022-12-18 06:00] VITALS: BP 125/81; PULSE 107; RESP 15; O2SAT 98
[2022-12-18] MEDS: omega-3 fatty acids 1,000 mg Capsule 1000 MG PO ×2 (09:19→20:28)
[2022-12-18] MEDS: ARIPiprazole 10 mg Tablet 5 MG PO (09:19)
[2022-12-18] MEDS: multivitamin therapeutic Tablet 1 TAB PO (09:19)
[2022-12-18] MEDS: cyanocobalamin 1,000 mcg Tablet 1000 MCG PO (09:19)
[2022-12-18] MEDS: pyridoxine 50 mg Tablet PO (09:19)
[2022-12-18 13:39] VITALS: BP 117/81; PULSE 113; RESP 17; TEMP 36.8; O2SAT 98
--- NOTE | 2022-12-18 17:26 | P.NPUPN_ITS ---
Subjective NPU Subjective: Patient presented today reporting he is doing okay with the medication as well as eating. He reported he got weighed about 3 times partially because there will were nursing students on the unit today. He reports that his weights fluctuated between 94 and 96 pounds. He denied any side effects to the medication and reports that overall he is feeling better. Mental Status Exam MSE Comments: This is a underweight/cachectic -[place] Citizen male with twists, in hospital scrubs with limited grooming and eye contact. No abnormal movements except for mild psychomotor retardation. Cooperative with exam in no acute distress. Speech was more robust than responses but not spontaneous with decreased rate and volume. Mood described as a little better, affect less subdued and less guarded. Thought process linear. Thought content: Patient denied suicidal or homicidal ideation, there were no delusions reported but he continues to be somewhat guarded/paranoid, he denied auditory or visual hallucinations. Attention and concentration appeared intact and memory seemed reliable but was limited and without discussion of anything that might give clarity to the situation, but none were formally tested. He is alert and oriented x3. Insight and judgment appear limited impulse control appears limited Vitals/I&O/Wt Last Vital Signs Temp 97.6 F 12/18/22 20:41 Pulse 99 12/18/22 20:41 Resp 16 12/18/22 20:41 BP 121/91 12/18/22 20:41 Pulse Ox 98 12/18/22 20:41 O2 Del Method Room Air 12/18/22 20:41 Weight last 48 hrs Weight 44.724 kg Weight 44.724 kg Weight 43.545 kg Weight 42.808 kg Weight 41.447 kg Weight 41.447 kg Data NPU 12/08/22 16:11 12/15/22 14:33 A&P Assessment and plan (1) Psychosis: (2) Schizophreniform disorder: Plan This is a 22-year-old male of descent who presents on a 96-hour hold reporting a lack of knowledge as to what the concerns would be but reports of recent change in appetite with weight loss and poor self-care presenting looking fairly unkempt. 1. Started Abilify 5 mg p.o. every morning 2. Continue every 15 minute checks for safety. 3. Encourage individual, group and milieu therapy. 4. We will get collateral information from family to get a sense of what other symptoms they may have seen. Patient presents unkempt and raises concern for possible prodromal schizophrenia with significant presence of negative symptoms. Question of whether his current functioning would warrant an extension to a 21- day hold. 5. Appreciate tobacco packer/dietary consult. Started some vitamins that were recommended. Also added dietary changes. Weight at 88 pounds at 6 foot continue to raise questions that there are parts of his story of why he stopped eating that he is not sharing though it could be part of a negative symptom cluster of schizophreniform/schizophrenia. We will do every other day weights. 7. Filed for a 21-day hold we can assist with managing his sequela of his likely thought disorder with the anorexia. The hearing was 12/15/2022 and a 21- day hold was granted. Involuntary Hold Information 96 Hour Hold: 96 Hour Involuntary Admission: Yes 96 Hour Hold Ending Date: 12/14/22 96 Hour Hold Ending Time: 15:16 Attestations NPU Medical Necessity Statement*: Inpatient hospitalization is medically necessary and the clinically appropriate intervention at this time. We will monitor medications and make changes as indicated. Likely length of stay 5-8 days. Coding Level of Care Code Acute Code for [facility] Fwd Diagnoses Psychosis F29 Schizophreniform disorder F20.81
[2022-12-18 20:41] VITALS: BP 121/91; PULSE 99; RESP 16; TEMP 36.4; O2SAT 98
--- NOTE | 2022-12-18 20:47 | PC.NURSE ---
IN BED RESTING, AROUSES TO VOICE. ASSESSMENT COMPLETED. PT APPEARS TO BE WITHDRAWN AND ISOLATES. PT DENIES PAIN, SI/HI AND AVH AT THIS TIME. PT COMPLIANT WITH MEDICATIONS. PT WENT BACK TO RESTING WHEN ASSESSMENT COMPLETED. WEIGHT THIS SHIFT WAS 98.6 POUNDS. PT WAS GIVEN A SNACK AND DRINK AND ENCOURAGED TO DRINK ENSURE. PT DECLINED ENSURE BUT DRANK AND ATE 100% OF SNACK.
[2022-12-19 06:00] VITALS: BP 112/82; PULSE 63; RESP 16; TEMP 36.9; O2SAT 98
--- NOTE | 2022-12-19 07:41 | W.PM.NPUPNS ---
Subjective NPU Subjective: Patient presented today reporting that he is doing okay. We discussed his excellent progress in his diet and we agreed that the Ensure has been a real help in boosting his caloric intake. We discussed the fact that the medication continues to be helpful. We discussed the need to consider increasing the dose and discussed the availability of a long-acting injectable. We discussed Dr. Huizar returning tomorrow and being the person to decide on the discharge, but things looking favorable for this week. Mental Status Exam MSE Comments: This is a underweight/cachectic -Macanese male with twists, in hospital scrubs with limited grooming and eye contact. No abnormal movements except for mild psychomotor retardation. Cooperative with exam in no acute distress. Speech was more robust than responses but not spontaneous with decreased rate and volume. Mood described as a little better, affect less subdued and less guarded. Thought process linear. Thought content: Patient denied suicidal or homicidal ideation, there were no delusions reported but he continues to be somewhat guarded/paranoid, he denied auditory or visual hallucinations. Attention and concentration appeared intact and memory seemed reliable but was limited and without discussion of anything that might give clarity to the situation, but none were formally tested. He is alert and oriented x3. Insight and judgment appear limited impulse control appears limited Vitals/I&O/Wt Last Vital Signs Temp 98.4 F 12/19/22 06:00 Pulse 63 12/19/22 06:00 Resp 16 12/19/22 06:00 BP 112/82 12/19/22 06:00 Pulse Ox 98 12/19/22 06:00 O2 Del Method Room Air 12/18/22 20:41 Weight last 48 hrs Weight 44.724 kg Weight 44.724 kg Weight 43.545 kg Weight 42.808 kg Weight 41.447 kg Data NPU 12/08/22 16:11 12/15/22 14:33 A&P Assessment and plan (1) Psychosis: (2) Schizophreniform disorder: Plan This is a 22-year-old male of descent who presents on a 96-hour hold reporting a lack of knowledge as to what the concerns would be but reports of recent change in appetite with weight loss and poor self-care presenting looking fairly unkempt. 1. Started Abilify 5 mg p.o. every morning 2. Continue every 15 minute checks for safety. 3. Encourage individual, group and milieu therapy. 4. We will get collateral information from family to get a sense of what other symptoms they may have seen. Patient presents unkempt and raises concern for possible prodromal schizophrenia with significant presence of negative symptoms. Question of whether his current functioning would warrant an extension to a 21-day hold. 5. Appreciate belt and link shop supervisor/dietary consult. Started some vitamins that were recommended. Also added dietary changes. Weight at 88 pounds at 6 foot continue to raise questions that there are parts of his story of why he stopped eating that he is not sharing though it could be part of a negative symptom cluster of schizophreniform/schizophrenia. We will do every other day weights. His weights are now fluctuating between 96 and 98 pounds 12/19/2022. 7. Filed for a 21-day hold we can assist with managing his sequela of his likely thought disorder with the anorexia. The hearing was 12/15/2022 and a 21-day hold was granted. Involuntary Hold Information 96 Hour Hold: 96 Hour Involuntary Admission: Yes 96 Hour Hold Ending Date: 12/14/22 96 Hour Hold Ending Time: 15:16 Attestations NPU Medical Necessity Statement*: Inpatient hospitalization is medically necessary and the clinically appropriate intervention at this time. We will monitor medications and make changes as indicated. Likely length of stay 4-7 days. Coding Level of Care Code Acute Code for Chg Fwd Diagnoses Psychosis F29 Schizophreniform disorder F20.81
[2022-12-19] MEDS: cyanocobalamin 1,000 mcg Tablet 1000 MCG PO (07:54)
[2022-12-19] MEDS: omega-3 fatty acids 1,000 mg Capsule 1000 MG PO ×2 (07:54→20:30)
[2022-12-19] MEDS: ARIPiprazole 10 mg Tablet 5 MG PO (07:54)
[2022-12-19] MEDS: multivitamin therapeutic Tablet 1 TAB PO (07:54)
[2022-12-19] MEDS: pyridoxine 50 mg Tablet PO (07:54)
[2022-12-19 14:00] VITALS: BP 109/78; PULSE 105; RESP 16; TEMP 36.6; O2SAT 99
[2022-12-19] MEDS: ergocalciferol (vitamin D2) 50,000 Unit Capsule 50000 UNIT PO (18:20)
[2022-12-19 20:59] VITALS: BP 119/88; PULSE 109; RESP 17; O2SAT 98
[2022-12-20 06:00] VITALS: BP 105/64; PULSE 107; RESP 20; O2SAT 98
[2022-12-20] MEDS: ARIPiprazole 10 mg Tablet 5 MG PO ×2 (08:31→17:54)
[2022-12-20] MEDS: multivitamin therapeutic Tablet 1 TAB PO (08:31)
[2022-12-20] MEDS: cyanocobalamin 1,000 mcg Tablet 1000 MCG PO (08:31)
[2022-12-20] MEDS: pyridoxine 50 mg Tablet PO (08:31)
[2022-12-20] MEDS: omega-3 fatty acids 1,000 mg Capsule 1000 MG PO ×2 (08:31→21:00)
[2022-12-20 14:00] VITALS: BP 123/88; PULSE 93; RESP 18; TEMP 37.1; O2SAT 98
--- NOTE | 2022-12-20 17:28 | P.NPUPN_ITS ---
Subjective NPU Subjective: Patient is a 22-year-old white male with a provisional diagnosis of schizophreniform disorder admitted with apathy and a lack of motivation with a noticeable decline in self-care including significant weight loss over the past several months. The patient continued to appear somewhat unfazed by his weight loss. He was unable to describe why he had simply lost the urge to eat. He had reported no initial trigger or stressor that had led to his changes. He reported no body image distortion. He had reported that he had had a decline in interest in school and stated that he was thinking about getting a job instead of going back to college. He had reported no side effects from his Abilify at this time. Mental Status Exam MSE Comments: This is a underweight/cachectic -Russian male who was pleasant and cooperative on interview., He was dressed in hospital scrubs with adequate grooming and fair eye contact. No abnormal movements except for psychomotor slowing. Cooperative with exam in no acute distress. His speech was normal in regards to volume but decreased in rate. There was some decrease in spontaneity. His mood was described as all right. His affect remained guarded. His thought process was linear. Thought content: Patient denied suicidal or homicidal ideation. There were no delusions reported and he appeared to struggle to elaborate on his statements. He denied auditory or visual hallucinations and did not appear to be responding to internal stimuli. Attention and concentration appeared intact and memory seemed reliable but was limited and without discussion of anything that might give clarity to the situation, but none were formally tested. He is alert and oriented x3. Insight and judgment appear limited; impulse control appears limited Vitals/I&O/Wt Last Vital Signs Temp 98.7 F 12/20/22 14:00 Pulse 93 12/20/22 14:00 Resp 18 12/20/22 14:00 BP 123/88 12/20/22 14:00 Pulse Ox 98 12/20/22 14:00 O2 Del Method Room Air 12/20/22 06:00 Weight last 48 hrs Weight 43.205 kg Weight 43.8 kg Weight 44.724 kg Weight 44.724 kg Data NPU 12/08/22 16:11 12/15/22 14:33 A&P Assessment and plan (1) Psychosis: (2) Schizophreniform disorder: Plan This is a 22-year-old male of descent who presents on a 96-hour hold reporting a lack of knowledge as to what the concerns would be but reports of recent change in appetite with weight loss and poor self-care presenting looking fairly unkempt. 1. Increase Abilify to 10 mg daily. 2. Continue every 15 minute checks for safety. 3. Encourage individual, group and milieu therapy. 4. We will get collateral information from family to get a sense of what other symptoms they may have seen. Patient presents unkempt and raises concern for p ossible prodromal schizophrenia with significant presence of negative symptoms. Question of whether his current functioning would warrant an extension to a 21- day hold. 5. Appreciate cell maker/dietary consult. Started some vitamins that were recommended. Also added dietary changes. Weight at 88 pounds at 6 foot continue to raise questions that there are parts of his story of why he stopped eating that he is not sharing though it could be part of a negative symptom cluster of schizophreniform/schizophrenia. We will do every other day weights. His weights are now fluctuating between 96 and 98 pounds 12/19/2022. 7. Filed for a 21-day hold we can assist with managing his sequela of his likely thought disorder with the anorexia. The hearing was 12/15/2022 and a 21- day hold was granted. Involuntary Hold Information 96 Hour Hold: 96 Hour Involuntary Admission: Yes 96 Hour Hold Ending Date: 12/14/22 96 Hour Hold Ending Time: 15:16 Attestations NPU Medical Necessity Statement*: Inpatient hospitalization is medically necessary and the clinically appropriate intervention at this time. We will monitor medications and make changes as indicated. Likely length of stay 4-7 days. Coding Level of Care Code Acute Code for Chg Fwd Diagnoses Psychosis F29 Schizophreniform disorder F20.81
[2022-12-20 21:13] VITALS: BP 109/68; PULSE 101; RESP 15; TEMP 36.3; O2SAT 96
[2022-12-21 06:00] VITALS: BP 117/86; PULSE 113; RESP 16; O2SAT 99
[2022-12-21] MEDS: cyanocobalamin 1,000 mcg Tablet 1000 MCG PO (09:40)
[2022-12-21] MEDS: omega-3 fatty acids 1,000 mg Capsule 1000 MG PO ×2 (09:40→20:07)
[2022-12-21] MEDS: multivitamin therapeutic Tablet 1 TAB PO (09:40)
[2022-12-21] MEDS: ARIPiprazole 10 mg Tablet PO (09:40)
[2022-12-21] MEDS: pyridoxine 50 mg Tablet PO (09:40)
[2022-12-21 14:00] VITALS: BP 126/88; PULSE 110; RESP 16; O2SAT 97
--- NOTE | 2022-12-21 18:41 | P.NPUPN_ITS ---
Subjective NPU Subjective: Patient is a 22-year-old white male with a provisional diagnosis of schizophreniform disorder admitted with apathy and a lack of motivation with a noticeable decline in self-care including significant weight loss over the past several months. Patient had reported tolerance to his Abilify with no side effects noted. He had reported improved concentration as he was seen reading a book by Marcial Thapa. He had shown some improvement in appetite and was compliant on the milieu while attending groups. He had reported no depression and reported some improved ability to execute on self-care Mental Status Exam MSE Comments: This is a underweight/cachectic -Zambian male who was pleasant and cooperative on interview., He was dressed in hospital scrubs with adequate grooming and fair eye contact. No abnormal involuntary motor movements were appreciated today with less psychomotor slowing noted. He was cooperative with exam in no acute distress. His speech was normal in regards to volume and more productive today but still lacking spontaneity in speech. His mood was described as better. His affect remained flat.. His thought process was linear. Thought content: Patient denied suicidal or homicidal ideation. There were no delusions reported and he appeared to struggle to elaborate on his statements. He denied auditory or visual hallucinations and did not appear to be responding to internal stimuli. Attention and concentration appeared intact and memory seemed reliable but was limited and without discussion of anything that might give clarity to the situation, but none were formally tested. He is alert and oriented x3. Insight and judgment appear limited; impulse control appears limited Vitals/I&O/Wt Last Vital Signs Temp 97.4 F L 12/20/22 21:13 Pulse 110 H 12/21/22 14:00 Resp 16 12/21/22 14:00 BP 126/88 12/21/22 14:00 Pulse Ox 97 12/21/22 14:00 O2 Del Method Room Air 12/21/22 14:00 Weight last 48 hrs Weight 41.787 kg Weight 43.205 kg Data NPU 12/08/22 16:11 12/15/22 14:33 A&P Assessment and plan (1) Psychosis: (2) Schizophreniform disorder: Plan This is a 22-year-old male of descent who presents on a 96-hour hold reporting a lack of knowledge as to what the concerns would be but reports of recent change in appetite with weight loss and poor self-care presenting looking fairly unkempt. 1. Continue Abilify at 10 mg daily. 2. Continue every 15 minute checks for safety. 3. Encourage individual, group and milieu therapy. 4. We will get collateral information from family to get a sense of what other symptoms they may have seen. Patient presents unkempt and raises concern for possible prodromal schizophrenia with significant presence of negative symptoms. Question of whether his current functioning would warrant an extension to a 21- day hold. 5. Appreciate aviation mechanic/dietary consult. Started some vitamins that were recommended. Also added dietary changes. Weight at 88 pounds at 6 foot continue to raise questions that there are parts of his story of why he stopped eating that he is not sharing though it could be part of a negative symptom cluster of schizophreniform/schizophrenia. We will do every other day weights. His weights are now fluctuating between 96 and 98 pounds 12/19/2022. 7. Filed for a 21-day hold we can assist with managing his sequela of his likely thought disorder with the anorexia. The hearing was 12/15/2022 and a 21- day hold was granted. Involuntary Hold Information 96 Hour Hold: 96 Hour Involuntary Admission: Yes 96 Hour Hold Ending Date: 12/14/22 96 Hour Hold Ending Time: 15:16 Attestations NPU Medical Necessity Statement*: Inpatient hospitalization is medically necessary and the clinically appropriate intervention at this time. We will monitor medications and make changes as indicated. Likely length of stay 4-7 days. Coding Level of Care Code Acute Code for Chg Fwd Diagnoses Psychosis F29 Schizophreniform disorder F20.81
[2022-12-21 19:51] VITALS: BP 124/75; PULSE 100; RESP 15; TEMP 36.9; O2SAT 99
[2022-12-22 05:47] VITALS: BP 114/79; PULSE 107; RESP 15; TEMP 36.8; O2SAT 99
[2022-12-22] MEDS: multivitamin therapeutic Tablet 1 TAB PO (08:51)
[2022-12-22] MEDS: pyridoxine 50 mg Tablet PO (08:51)
[2022-12-22] MEDS: cyanocobalamin 1,000 mcg Tablet 1000 MCG PO (08:51)
[2022-12-22] MEDS: ARIPiprazole 10 mg Tablet PO (08:51)
[2022-12-22] MEDS: omega-3 fatty acids 1,000 mg Capsule 1000 MG PO ×2 (08:53→20:21)
[2022-12-22 14:00] VITALS: BP 125/73; PULSE 92; RESP 16; TEMP 36.9; O2SAT 96
--- NOTE | 2022-12-22 16:36 | P.NPUPN_ITS ---
Subjective NPU Subjective: Patient is a 22-year-old white male with a provisional diagnosis of schizophreniform disorder admitted with apathy and a lack of motivation with a noticeable decline in self-care including significant weight loss over the past several months. He did appear to be more interactive and stated that he was feeling better. He had reported improvement in concentration. He had been eating on the unit and had not been confused about his thoughts. He had reported adequate sleep. He had continued to endorse a relative lack of interest in activities although he stated that he had been able to read a book over the past few days for the first time in several months. Mental Status Exam MSE Comments: This is a underweight/cachectic -Macanese male who was pleasant and cooperative on interview., He was dressed in hospital scrubs with adequate grooming and fair eye contact. No abnormal involuntary motor movements were appreciated today with less psychomotor slowing appreciated. He was cooperative with exam in no acute distress. His speech was normal in regards to volume and more productive today with greater elaboration regarding his general wellbeing. His mood was described as okay. His affect was blunted. His thought process was linear. Thought content: Patient denied suicidal or homicidal ideation. There were no delusions reported. Overall, he appeared less guarded on interview. He had continue to report a lack of motivation. He denied auditory or visual hallucinations and did not appear to be responding to internal stimuli. Attention and concentration appeared intact and memory seemed reliable. He is alert and oriented x3. Insight and judgment appear limited; impulse control appears limited Vitals/I&O/Wt Last Vital Signs Temp 98.4 F 12/22/22 14:00 Pulse 92 12/22/22 14:00 Resp 16 12/22/22 14:00 BP 125/73 12/22/22 14:00 Pulse Ox 96 12/22/22 14:00 O2 Del Method Room Air 12/22/22 14:00 Weight last 48 hrs Weight 41.787 kg Data NPU 12/08/22 16:11 12/15/22 14:33 A&P Assessment and plan (1) Psychosis: (2) Schizophreniform disorder: Plan This is a 22-year-old male of descent who presents on a 96-hour hold reporting a lack of knowledge as to what the concerns would be but reports of recent change in appetite with weight loss and poor self-care presenting looking fairly unkempt. 1. Increase Abilify to 15 mg daily. 2. Continue every 15 minute checks for safety. 3. Encourage individual, group and milieu therapy. 4. We will get collateral information from family to get a sense of what other symptoms they may have seen. Patient presents unkempt and raises concern for possible prodromal schizophrenia with significant presence of negative symptoms. Question of whether his current functioning would warrant an extension to a 21- day hold. 5. Appreciate irrigation service technician/dietary consult. Started some vitamins that were recommended. Also added dietary changes. Weight at 88 pounds at 6 foot continue to raise questions that there are parts of his story of why he stopped eating that he is not sharing though it could be part of a negative symptom cluster of schizophreniform/schizophrenia. We will do every other day weights. His weights are now fluctuating between 96 and 98 pounds 12/19/2022. 7. Filed for a 21-day hold we can assist with managing his sequela of his lik vijaya thought disorder with the anorexia. The hearing was 12/15/2022 and a 21-day hold was granted. Involuntary Hold Information 96 Hour Hold: 96 Hour Involuntary Admission: Yes 96 Hour Hold Ending Date: 12/14/22 96 Hour Hold Ending Time: 15:16 Attestations NPU Medical Necessity Statement*: Inpatient hospitalization is medically necessary and the clinically appropriate intervention at this time. We will monitor medications and make changes as indicated. Likely length of stay 4-7 days. Coding Level of Care Code Acute Code for Chg Fwd Diagnoses Psychosis F29 Schizophreniform disorder F20.81
[2022-12-22 21:36] VITALS: BP 124/91; PULSE 118; RESP 18; TEMP 36.9; O2SAT 96
[2022-12-22] MEDS: nicotine 2 mg Gum BUCCAL (21:37)
[2022-12-23 06:00] VITALS: BP 115/80; PULSE 121; RESP 15; O2SAT 98
[2022-12-23] MEDS: multivitamin therapeutic Tablet 1 TAB PO (09:59)
[2022-12-23] MEDS: omega-3 fatty acids 1,000 mg Capsule 1000 MG PO ×2 (09:59→20:33)
[2022-12-23] MEDS: pyridoxine 50 mg Tablet PO (09:59)
[2022-12-23] MEDS: ARIPiprazole 30 mg Tablet 15 MG PO (09:59)
[2022-12-23] MEDS: cyanocobalamin 1,000 mcg Tablet 1000 MCG PO (09:59)
[2022-12-23 14:00] VITALS: BP 125/75; PULSE 115; RESP 16; TEMP 36.6; O2SAT 100
--- NOTE | 2022-12-23 15:56 | P.NPUPN_ITS ---
Subjective NPU Subjective: Patient is a 22-year-old white male with a provisional diagnosis of schizophreniform disorder admitted with apathy and a lack of motivation with a noticeable decline in self-care including significant weight loss over the past several months. The patient had expressed feeling better. He had not been able to fully endorse why or what had made him better. He had appeared more interactive but continued to be somewhat isolative. He had reported adequate appetite. He had expressed simply having lost a will to do anything. He had expressed desire to go to work upon his discharge here. He had been unable to express if there had been any event that had led to his decline over the past 6 months. He had expressed being disillusioned by school but did not elaborate further. Mental Status Exam MSE Comments: This is a underweight/cachectic -G[place]ian male who was pleasant and coop erative on interview., He was dressed in hospital scrubs with adequate grooming and fair eye contact. No abnormal involuntary motor movements were appreciated today with less psychomotor slowing appreciated. He was cooperative with exam in no acute distress. His speech was normal in regards to volume and more productive today with greater elaboration regarding his general wellbeing. His mood was described as better. His affect remained blunted. His thought process was linear. Thought content: Patient denied suicidal or homicidal ideation. There were no delusions reported. Overall, he appeared less guarded on interview. He denied auditory or visual hallucinations and did not appear to be responding to internal stimuli. Attention and concentration appeared intact and memory seemed reliable. He is alert and oriented x3. Insight and judgment appear limited; impulse control appears limited Vitals/I&O/Wt Last Vital Signs Temp 97.8 F 12/23/22 14:00 Pulse 115 H 12/23/22 14:00 Resp 16 12/23/22 14:00 BP 125/75 12/23/22 14:00 Pulse Ox 100 12/23/22 14:00 O2 Del Method Room Air 12/23/22 14:00 Weight last 48 hrs Weight 42.864 kg Data NPU 12/08/22 16:11 12/15/22 14:33 A&P Assessment and plan (1) Psychosis: (2) Schizophreniform disorder: Plan This is a 22-year-old male of descent who presents on a 96-hour hold reporting a lack of knowledge as to what the concerns would be but reports of recent change in appetite with weight loss and poor self-care presenting looking fairly unkempt. 1. Continue Abilify to 15 mg daily. 2. Continue every 15 minute checks for safety. 3. Encourage individual, group and milieu therapy. 4. We will get collateral information from family to get a sense of what other symptoms they may have seen. Patient presents unkempt and raises concern for possible prodromal schizophrenia with significant presence of negative symptoms. Question of whether his current functioning would warrant an extension to a 21- day hold. 5. Appreciate nutrition associate/dietary consult. Started some vitamins that were recommended. Also added dietary changes. Weight at 88 pounds at 6 foot co ntinue to raise questions that there are parts of his story of why he stopped eating that he is not sharing though it could be part of a negative symptom cluster of schizophreniform/schizophrenia. We will do every other day weights. His weights are now fluctuating between 96 and 98 pounds 12/19/2022. 7. Filed for a 21-day hold we can assist with managing his sequela of his likely thought disorder with the anorexia. The hearing was 12/15/2022 and a 21- day hold was granted. Involuntary Hold Information 96 Hour Hold: 96 Hour Involuntary Admission: Yes 96 Hour Hold Ending Date: 12/14/22 96 Hour Hold Ending Time: 15:16 Attestations NPU Medical Necessity Statement*: Inpatient hospitalization is medically necessary and the clinically appropriate intervention at this time. We will monitor medications and make changes as indicated. Likely length of stay 4-7 days. Coding Level of Care Code Acute Code for [facility] Fwd Diagnoses Psychosis F29 Schizophreniform disorder F20.81
[2022-12-23 20:29] VITALS: BP 113/83; PULSE 104; RESP 16; TEMP 36.9; O2SAT 98
[2022-12-23] MEDS: nicotine 2 mg Gum BUCCAL (20:52)
[2022-12-24 06:00] VITALS: BP 130/87; PULSE 116; RESP 17; TEMP 36.6; O2SAT 97
[2022-12-24] MEDS: pyridoxine 50 mg Tablet PO (08:13)
[2022-12-24] MEDS: omega-3 fatty acids 1,000 mg Capsule 1000 MG PO ×2 (08:13→20:23)
[2022-12-24] MEDS: multivitamin therapeutic Tablet 1 TAB PO (08:13)
[2022-12-24] MEDS: ARIPiprazole 30 mg Tablet 15 MG PO (08:13)
[2022-12-24] MEDS: cyanocobalamin 1,000 mcg Tablet 1000 MCG PO (08:13)
[2022-12-24 09:55] VITALS: BMI 12.8
[2022-12-24 14:00] VITALS: BP 135/90; PULSE 120; RESP 18; TEMP 36.8; O2SAT 98
--- NOTE | 2022-12-24 17:05 | W.PM.NPUPNS ---
Subjective NPU Subjective: Patient is a 22-year-old white male with a provisional diagnosis of schizophreniform disorder admitted with apathy and a lack of motivation with a noticeable decline in self-care including significant weight loss over the past several months. Patient had acknowledged that the medication had been helping him. He had not reported any increase in appetite and his weight had appeared to be slightly lower than its peak here. He had shown evidence of good cooperation on the milieu. He was more social with his peers. The patient was polite and redirectable. He reported good concentration at this time. He had reported looking forward to returning home and getting a job. Mental Status Exam MSE Comments: This is a underweight/cachectic -Iranian male who was pleasant and cooperative on interview., He was dressed in hospital scrubs with adequate grooming and fair eye contact. No abnormal involuntary motor movements were appreciated today with mild psychomotor retardation. He was cooperative with exam in no acute distress. His speech was normal in regards to volume, rate and rhythm. His mood was described as better. His affect remained blunted. His thought process was linear. Thought content: Patient denied suicidal or homicidal ideation. There were no delusions reported. Overall, he still appeared slightly guarded on interview. He denied auditory or visual hallucinations and did not appear to be responding to internal stimuli. Attention and concentration appeared intact and memory seemed improved. He is alert and oriented x3. Insight and judgment appear limited; impulse control appears limited Vitals/I&O/Wt Last Vital Signs Temp 98.3 F 12/24/22 14:00 Pulse 120 H 12/24/22 14:00 Resp 18 12/24/22 14:00 BP 135/90 12/24/22 14:00 Pulse Ox 98 12/24/22 14:00 O2 Del Method Room Air 12/24/22 06:00 Weight last 48 hrs Weight 42.864 kg Weight 42.864 kg Data NPU 12/08/22 16:11 12/15/22 14:33 A&P Assessment and plan (1) Psychosis: (2) Schizophreniform disorder: Plan This is a 22-year-old male of descent who presents on a 96-hour hold reporting a lack of knowledge as to what the concerns would be but reports of recent change in appetite with weight loss and poor self-care presenting looking fairly unkempt. 1. Increase Abilify to 20mg daily. 2. Continue every 15 minute checks for safety. 3. Encourage individual, group and milieu therapy. 4. We will get collateral information from family to get a sense of what other symptoms they may have seen. Patient presents unkempt and raises concern for possible prodromal schizophrenia with significant presence of negative symptoms. Question of whether his current functioning would warrant an extension to a 21-day hold. 5. Appreciate field contact person/dietary consult. Started some vitamins that were recommended. Also added dietary changes. Weight at 88 pounds at 6 foot continue to raise questions that there are parts of his story of why he stopped eating that he is not sharing though it could be part of a negative symptom cluster of schizophreniform/schizophrenia. We will do every other day weights. His weights are now fluctuating between 96 and 98 pounds 12/19/2022. 7. Filed for a 21-day hold we can assist with managing his sequela of his likely thought disorder with the anorexia. The hearing was 12/15/2022 and a 21-day hold was granted. Involuntary Hold Information 96 Hour Hold: 96 Hour Involuntary Admission: Yes 96 Hour Hold Ending Date: 12/14/22 96 Hour Hold Ending Time: 15:16 Attestations NPU Medical Necessity Statement*: Inpatient hospitalization is medically necessary and the clinically appropriate intervention at this time. We will monitor medications and make changes as indicated. Likely length of stay 2-3 days. Coding Level of Care Code Acute Code for Chg Fwd Diagnoses Psychosis F29 Schizophreniform disorder F20.81
[2022-12-24 19:55] VITALS: BP 138/92; PULSE 107; RESP 18; TEMP 37; O2SAT 98
--- NOTE | 2022-12-24 21:06 | PC.NURSE ---
IN DAY ROOM PLAYING CHECKERS WITH PEERS. PT DENIES PAIN, SI/HI AND AVH AT THIS TIME. PT WAS OFFERED SNACK AND ATE 100% OF CRACKERS. PT IS MORE INTERACTIVE WITH PEERS AND STAFF. SUPPORT VOICED.
[2022-12-25 06:00] VITALS: BP 124/90; PULSE 132; RESP 18; O2SAT 98
[2022-12-25 06:20] VITALS: BMI 13.0
[2022-12-25] MEDS: omega-3 fatty acids 1,000 mg Capsule 1000 MG PO ×2 (08:57→20:17)
[2022-12-25] MEDS: cyanocobalamin 1,000 mcg Tablet 1000 MCG PO (08:57)
[2022-12-25] MEDS: multivitamin therapeutic Tablet 1 TAB PO (08:58)
[2022-12-25] MEDS: ARIPiprazole 10 mg Tablet 20 MG PO (08:58)
[2022-12-25] MEDS: pyridoxine 50 mg Tablet PO (08:58)
[2022-12-25] MEDS: nicotine 2 mg Gum BUCCAL (09:38)
[2022-12-25 10:00] VITALS: BMI 13.0
[2022-12-25 14:00] VITALS: BP 131/94; PULSE 124; RESP 15; TEMP 36.7; O2SAT 98
--- NOTE | 2022-12-25 15:28 | P.NPUPN_ITS ---
Subjective NPU Subjective: Patient is a 22-year-old white male with a provisional diagnosis of schizophreniform disorder admitted with apathy and a lack of motivation with a noticeable decline in self-care including significant weight loss over the past several months. Patient had some improvement in motivation. He had appeared more social on the milieu. He had reported improved concentration and stated that he had completed his book. He reported being ready to return home soon. Patient had eaten adequately with good appetite noted. Mental Status Exam MSE Comments: This is a underweight/cachectic -Marshallese male who was pleasant and cooperative on interview., He was dressed in hospital scrubs with adequate grooming and fair eye contact. No abnormal involuntary motor movements were appreciated today with mild psychomotor retardation. He was cooperative with exam in no acute distress. His speech was normal in regards to volume, rate and rhythm. His mood was described as good. His affect appeared less flat. His thought process was linear. Thought content: Patient denied suicidal or homici clarisa ideation. There were no delusions reported. Overall, he still appeared slightly guarded on interview. He denied auditory or visual hallucinations and did not appear to be responding to internal stimuli. Attention and concentration appeared intact and memory seemed improved. He is alert and oriented x3. Insight appeared to be improving. His judgment appear better.;His impulse control appears to be improving. Vitals/I&O/Wt Last Vital Signs Temp 98.1 F 12/25/22 14:00 Pulse 124 H 12/25/22 14:00 Resp 15 12/25/22 14:00 BP 131/94 12/25/22 14:00 Pulse Ox 98 12/25/22 14:00 O2 Del Method Room Air 12/25/22 06:00 Weight last 48 hrs Weight 43.715 kg Weight 43.715 kg Weight 42.864 kg Data NPU 12/08/22 16:11 12/15/22 14:33 A&P Assessment and plan (1) Psychosis: (2) Schizophreniform disorder: Plan This is a 22-year-old male of descent who presents on a 96-hour hold reporting a lack of knowledge as to what the concerns would be but reports of recent change in appetite with weight loss and poor self-care presenting looking fairly unkempt. 1. Continue Abilify to 20mg daily. 2. Continue every 15 minute checks for safety. 3. Encourage individual, group and milieu therapy. 4. We will get collateral information from family to get a sense of what other symptoms they may have seen. Patient presents unkempt and raises concern for possible prodromal schizophrenia with significant presence of negative symptoms. Question of whether his current functioning would warrant an extension to a 21- day hold. 5. Appreciate commercial account officer/dietary consult. Started some vitamins that were recommended. Also added dietary changes. Weight at 88 pounds at 6 foot continue to raise questions that there are parts of his story of why he stopped eating that he is not sharing though it could be part of a negative symptom cluster of schizophreniform/schizophrenia. We will do every other day weights. His weights are now fluctuating between 96 and 98 pounds 12/19/2022. 7. Filed for a 21-day hold we can assist with managing his sequela of his likely thought disorder with the anorexia. The hearing was 12/15/2022 and a 21- day hold was granted. Involuntary Hold Information 96 Hour Hold: 96 Hour Involuntary Admission: Yes 96 Hour Hold Ending Date: 12/14/22 96 Hour Hold Ending Time: 15:16 Attestations NPU Medical Necessity Statement*: Inpatient hospitalization is medically necessary and the clinically appropriate intervention at this time. We will monitor medications and make changes as indicated. Likely length of stay 1-2 days. Coding Level of Care Code Acute Code for Chg Fwd Diagnoses Psychosis F29 Schizophreniform disorder F20.81
[2022-12-25] MEDS: nicotine 4 mg lozenge MUCOUS MEM (18:25)
--- NOTE | 2022-12-25 21:18 | PC.NURSE ---
IN SPEAKING TO ROOM MATE. PT IS COOPERATIVE. DENIES PAIN. DENIES SI/HI AND AVH AT THIS TIME. PT ENCOURAGED TO DRINK AND EAT SNACKS HE DESIRES. SNACK AND DRINK GIVEN ATE 100% OF SNACK. SUPPORT VOICED.
[2022-12-25 21:58] VITALS: BP 139/85; PULSE 120; RESP 18; TEMP 37.2; O2SAT 98
[2022-12-25] MEDS: trazodone 50 mg Tablet PO (22:01)
--- NOTE | 2022-12-25 22:38 | PC.NURSE ---
PT AT NURSES STATION REQUESTING MEDICATIONS TO HELP HIM SLEEP. PT STATES ITS BEEN CRAZY IN HERE TONIGHT AND WHEN I LAY DOWN I CAN'T SLEEP. PT WAS GIVEN TRAZODONE 50 MG ORDERED. PT CURRENTLY RESTING IN BED IN NO DISTRESS. TRAZODONE EFFECTIVE.
[2022-12-26 06:00] VITALS: BP 131/88; PULSE 115; RESP 18; O2SAT 98
[2022-12-26] MEDS: ARIPiprazole 10 mg Tablet 20 MG PO (08:40)
[2022-12-26] MEDS: multivitamin therapeutic Tablet 1 TAB PO (08:40)
[2022-12-26] MEDS: cyanocobalamin 1,000 mcg Tablet 1000 MCG PO (08:40)
[2022-12-26] MEDS: pyridoxine 50 mg Tablet PO (08:40)
[2022-12-26] MEDS: omega-3 fatty acids 1,000 mg Capsule 1000 MG PO (08:40)
[2022-12-26 10:00] VITALS: BMI 13.5
[2022-12-26 11:34] VITALS: BP 131/88; PULSE 115; RESP 18; O2SAT 98
--- NOTE | 2022-12-26 15:33 | W.PM.NPUDCS ---
Diagnoses at Discharge Discharge Diagnosis (1) Psychosis: Status: Acute (2) Schizophreniform disorder: Status: Acute Reason for Visit Reason for Visit: 96 Hold Brief History: History of Present Illness Isamar Baca is a 22 year old male who presented to the emergency department with the following report: Chief Complaint: Psychiatric Symptoms Stated Complaint: 96 Hold Time Seen by Provider: 12/08/22 15:20 Source: patient Mode of arrival: other (Accompanied by law enforcement) History of Present Illness:?? 22-year-old male brought into the emergency room and accompanied by police.? Family filled out 96-hour paperwork called and had certified at the court [place].? We read the patient the concerns from the affidavits in his responses simply shrugged his shoulders he does not feel these are big issues he denies any suicidal or homicidal ideation patient is moderately cachectic he does admit he has been losing weight lately when asked him about not taking care of himself he got a little bit teary-eyed and emotional but he was not confrontational.? He denies suicidal or homicidal ideation every time he is asked.? He states he simply does not understand why he was here he denies previously being hospitalized for mental health issues he has not seen by psychiatry he is not currently on any medications.? No auditory or visual hallucinations. ? Associated symptoms: Deny auditory hallucinations, visual hallucinations, delusions, depression, homicidal ideation, suicidal ideation or racing thoughts. He was admitted to the neuropsychiatric unit for definitive treatment of those issues.? He presents today reporting that he has never been in a psychiatric hospital or receive psychiatric care.? He has never been on psychiatric medications now or in the past and reports he does not know why he is here on a 96-hour hold.? We discussed the affidavits suggesting that he has lost considerable amount of weight and is not taking care of himself and he only acknowledges that he has lost considerable weight recently.? He reports that he vapes and that started in the last year or so but denied alcohol marijuana or any other illicit drug use.? He has never been to rehab or had a DUI denies any drug and alcohol charges.? He reports that he has never had any psychiatric symptoms that he is aware of and had no explanation for the sudden change in weight though he reports he is always been thin nor the recent change in his self-care.? We discussed needing to reach out to his family for some collateral information which he did not refuse.? Patient denied symptoms consistent with depression, anxiety, schizophrenia, bipolar, ADHD, PTSD or personality disorders. Psychiatric history: As above. Substance abuse history: As above. Family history: He denies any mental health or addiction issues that run in the family and denied any suicide attempts or completions in his family. Developmental history: He reports that he had no issues at and reports that he learned to walk and talk and met his developmental milestones on time.? He reports that he did not need speech therapy, learning support, emotional support or special education classes. Psychosocial history: He reports that his parents were together when he was born but they did split up.? He reports that his parents are both from [place].? He reports that he has a younger brother that is a product of that same union and that his mother does not have any other children but that his father has 2 other children.? He reports that his childhood was fine and that there was no neglect or emotional, physical or sexual abuse.? He denied any child protective services or any traumatic events throughout his life he denied any symptoms consistent with PTSD nightmares or flashbacks etc.? He endorsed getting to the 10th grade and getting his GED and doing some college courses.? He reports that he is heterosexual and his longest relationship was 3 years.? He has never been , has never had children, has never been in the and he endorses being a Anabaptist.? 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 Because that was in [place].? He reports he currently lives in a house with his mother and one of her coworkers. Legal history: He denied any legal peril. Medical history: He denies any issues other than his recent significant weight loss.? Hospital Course Hospital Course During the hospitalization, the patient had routine laboratory studies which were within normal limits except for a few outliers.? Additionally, there was a general medical evaluation which was also within normal limits and revealed no new acute processes.? At the time of discharge, lethality was denied and psychosis was resolving.? Mood and anxiety were well managed.? The patient was placed on a 21-day hold out of concerns regarding the patient initially not wanting to take medication in the extreme weight loss. Patient had dietary consult which helped the patient in regards to refeeding. He was able to slowly gain weight while he was here on the unit as he had reached a weight up to a peak of 98 pounds. He had been started on Abilify at 5 mg daily and this was titrated up to a dose of 20 mg prior to discharge with noted improvement in motivation and improved ability regarding execution and completion of daily tasks including self-care. The patient endorsed a plan to avoid all drugs of abuse and follow up with the aftercare recommendations of the treatment team.? The patient was evaluated and deemed to be absent credible lethality and had achieved the maximum benefit from an inpatient hospitalization, and so was discharged.? Involuntary Hold Information 96 Hour Hold: 96 Hour Involuntary Admission: Yes 96 Hour Hold Ending Date: 12/14/22 96 Hour Hold Ending Time: 15:16 Mental Status Exam MSE Comments: This is a underweight -Martiniquais male who was pleasant and cooperative on interview., He was dressed in hospital scrubs with adequate grooming and fair eye contact. No abnormal involuntary motor movements were appreciated today with mild psychomotor retardation. He was cooperative with exam in no acute distress. His speech was normal in regards to volume, rate and rhythm. His mood was described as good. His affect appeared less flat. His thought process was linear. Thought content: Patient denied suicidal or homicidal ideation. There were no delusions reported. He denied auditory or visual hallucinations and did not appear to be responding to internal stimuli. Attention and concentration appeared intact and memory seemed improved. He is alert and oriented x3. Insight appeared to be improving. His judgment appear better.;His impulse control appears to be improving. Discharge Data Studies Completed and Pending: Laboratory Results WBC 8.4 10^3/uL (4.0- 10.0) 12/08/22 16:11 RBC 5.07 10^6/uL (4.1 -5.3) 12/08/22 16:11 Hgb 15.6 g/dL (11.7-1 6.6) 12/08/22 16:11 Hct 44.1 % (42.0-52.0 ) 12/08/22 16:11 MCV 87.0 fl (80-94) 12/08/22 16:11 MCH 30.8 pg (28.0-34. 0) 12/08/22 16:11 MCHC 35.4 g/dL (30.0-3 6.0) 12/08/22 16:11 RDW 12.5 % (12.1-15.1 ) 12/08/22 16:11 Plt Count 207 10^3/cmm (130 -400) 12/08/22 16:11 MPV 8.8 fL (7.4-10.4) 12/08/22 16:11 Neut % (Auto) 75.8 % 12/08/22 16:11 Lymph % (Auto) 16.0 % 12/08/22 16:11 Stephens % (Auto) 5.5 % 12/08/22 16:11 Eos % (Auto) 2.1 % 12/08/22 16:11 Baso % (Auto) 0.4 % 12/08/22 16:11 Neut # (Auto) 6.36 10^3/uL (1.8 -7.7) 12/08/22 16:11 Lymph # (Auto) 1.3 10^3/uL (0.8- 4.8) 12/08/22 16:11 Stephens # (Auto) 0.5 10^3/uL (0.2- 0.9) 12/08/22 16:11 Eos # (Auto) 0.2 10^3/uL (0.0- 0.8) 12/08/22 16:11 Baso # (Auto) 0.0 10^3/uL (0.0- 0.1) 12/08/22 16:11 Nucleated RBC % (a uto) 0 % 12/08/22 16:11 Nucleated RBCs # 0.0 /100WBC 12/08/22 16:11 Sodium 140 mmol/L (136-1 45) 12/15/22 14:33 Potassium 4.2 mmol/L (3.5-5 .1) 12/15/22 14:33 Chloride 100 mmol/L (98-10 7) 12/15/22 14:33 Carbon Dioxide 31 mmol/L (22-29) H 12/15/22 14:33 Anion Gap 13.2 (5-19) 12/15/22 14:33 BUN 10 mg/dL (6-20) 12/08/22 16:11 Creatinine 0.6 mg/dL (0.7-1. 2) L 12/08/22 16:11 GFR Calculation 200.3 mL/min (90- 130) H 12/08/22 16:11 Glucose 96 mg/dL (65-115) 12/08/22 16:11 Calculated Osmolal ity 287 mOsm/kg (285- 295) 12/08/22 16:11 Calcium 9.4 mg/dL (8.5-10 .5) 12/08/22 16:11 Total Bilirubin 0.5 mg/dL (0.15-1 .2) 12/08/22 16:11 AST 15 U/L (0-40) 12/08/22 16:11 ALT 16 U/L (0-41) 12/08/22 16:11 Alkaline Phosphata se 75 U/L (40-130) 12/08/22 16:11 Total Protein 7.5 g/dL (6.6-8.7 ) 12/08/22 16:11 Albumin 4.8 g/dL (3.5-5.2 ) 12/08/22 16:11 Globulin 2.7 g/dL (1.3-4.6 ) 12/08/22 16:11 Urine Color Light yellow (Ye llow) 12/08/22 20:05 Urine Appearance Clear (CLEAR) 12/08/22 20:05 Urine pH 7 (5-7) 12/08/22 20:05 Ur Specific Gravit y 1.010 (1.005-1.0 30) 12/08/22 20:05 Urine Protein Neg (Negative) 12/08/22 20:05 Urine Glucose (UA) Norm (Normal) 12/08/22 20:05 Urine Ketones Negative (Negati ve) 12/08/22 20:05 Urine Blood Neg (Negative) 12/08/22 20:05 Urine Nitrate Negative (Negati ve) 12/08/22 20:05 Urine Bilirubin Neg (Negative) 12/08/22 20:05 Urine Urobilinogen Norm mg/dL (Negat beny) 12/08/22 20:05 Ur Leukocyte Alva ase Negative (Negati ve) 12/08/22 20:05 Salicylates < 0.3 mg/dL (3-10 ) L 12/08/22 16:11 Urine Opiates Scre en Negative ng/mL (N egative) 12/08/22 20:05 Acetaminophen < 5.0 ug/mL (10-3 0) L 12/08/22 16:11 Ur Barbiturates Sc reen Negative ng/mL (N egative) 12/08/22 20:05 Ur Phencyclidine S crn Negative ng/mL (N egative) 12/08/22 20:05 Ur Amphetamines Sc reen Negative ng/mL (N egative) 12/08/22 20:05 U Benzodiazepines Scrn Negative ng/mL (N egative) 12/08/22 20:05 Urine Cocaine Scre en Negative ng/mL (N egative) 12/08/22 20:05 U Marijuana (THC) Screen Positive ng/mL (N egative) H 12/08/22 20:05 Ethyl Alcohol < 10 mg/dL (0-10) 12/08/22 16:11 Vitals: Last Vital Signs Temp 98.9 F 12/25/22 21:58 Pulse 115 H 12/26/22 11:34 Resp 18 12/26/22 11:34 BP 131/88 12/26/22 11:34 Pulse Ox 98 12/26/22 11:34 O2 Del Method Room Air 12/26/22 06:00 Discharge Plan Discharge Patient Disposition: Home Condition: Stable Prescriptions: New aripiprazole 20 mg tablet 20 mg PO DAILY Qty: 30 1RF Discharge Orders: Discharge Order (Routine); Ordered 12/26/22 Ordered By: Bg Huizar Referrals: [facility] [Outside] - 01/13/23 8:30 am (Initial appointment scheduled for 01/13/23 @ 8:30 am. ) Remi Torres MD [Physician] - 01/05/23 10:30 am (Hospital follow up.) Discharge Diet: Usual diet Discharge Activity: Resume usual activity Patient Instructions: Aripiprazole (By mouth), Psychotic Disorder (DC), Opioid Safety Discharge Attestations NPU Time Spent in Discharge Care*: less than 30 min Specific Discharge Activities: Specific discharge activities: educating patient and educating and/or supporting family/caregiver Coding Level of Care Code Acute Chg FW DC note Diagnoses Psychosis F29 Schizophreniform disorder F20.81
== END 2022-12-26 11:57 | disposition home or self-care (01) | DRG 885 ==
LOC: ER 17:16 → NP 17:18
PROVIDERS: Admitting Provider Psychiatry & Neurology Psychiatry; Emergency Provider Family Medicine; Visit Provider Psychiatry & Neurology Psychiatry
DX: F20.81 Schizophreniform disorder (principal); R45.851 Suicidal ideations; Z68.1 Body mass index [BMI] 19.9 or less, adult; R45.850 Homicidal ideations; F17.290 Nicotine dependence, other tobacco product, uncomplicated; R63.4 Abnormal weight loss
CPT/HCPCS: 36415; 80051; 80053; 80306; 80307; 81003; 85025; 97150; 97165; 99238; 99285

== ENCOUNTER 2023-07-25 19:08 | Inpatient (IN) | payer MEDICAID, SELFPAY ==
[2023-07-25 19:10] VITALS: BP 113/85; PULSE 114; RESP 16; TEMP 37.1; O2SAT 96
[2023-07-25 19:16] VITALS: BP 113/65
--- NOTE | 2023-07-25 19:16 | W.ED.GENADLT ---
HPI - General Adult General: Chief complaint: Psychiatric Symptoms Stated complaint: 96 hr hold Time Seen by Provider: 07/25/23 19:10 Source: patient and police Limitations: no limitations History of Present Illness: 23-year-old male is here with police under 96-hour hold. Patient states that he has been quite depressed he has been withdrawn in his room he has not been taking his omeprazole. Patient's mother filled out a 96 because she is concerned about his severe depression he denies SI or HI to me. He is quite withdrawn. Associated symptoms: Deny chest pain, dyspnea, headache(s), nausea, rash or vomiting Review of Systems Const: Denies: fever(s), chills, body aches or change in appetite ENMT: Denies: throat pain or dental pain Card: Denies: chest pain Resp: Denies: dyspnea GI: Denies: abdominal pain, nausea, vomiting or diarrhea : Denies: dysuria Musc: Denies: neck pain or back pain Skin/Breast: Denies: rash Neuro: Denies: headache(s) Psych: Reports: depression PFSH ED PFSH: Medical History Psychiatric care Family History Grandfather Dementia Social History Smoking and tobacco/nicotine status: former use of tobacco/nicotine Alcohol intake: never Substance/Drug Use: never Physical Exam Const: COMMON NORMALS: no acute distress, patient oriented x3 and healthy appearing HENMT: COMMON NORMALS: normocephalic and atraumatic HEAD & SCALP: normocephalic and atraumatic Neck/C-Spine: COMMON NORMALS: full ROM and supple Chest: COMMONS NORMALS: normal inspection of the chest Resp: COMMON NORMALS: normal respiratory effort Cardio: COMMON NORMALS: regular rate, regular rhythm and No murmurs present (Cardio) RATE: regular rate RHYTHM: regular rhythm Extremity: COMMON NORMALS: normal to inspection and full ROM Neuro: COMMON NORMALS: patient oriented x3, moves all extremities and no focal motor deficits Psych: COMMON NORMALS: mental status grossly normal, Normal thought process present and cooperative ATTITUDE: Yes Withdrawn affect present THOUGHT PROCESS: Normal thought process present Skin: COMMON NORMALS: no rashes or lesions noted and no wounds GENERAL SKIN EXAM: no rashes or lesions noted Course Vital Signs: Vital signs: Vital Signs Temperature 98.8 F 07/25/23 19:10 Pulse Rate 114 H 07/25/23 19:10 Respiratory Rate 16 07/25/23 19:10 Blood Pressure 113/65 07/25/23 19:16 Pulse Oximetry 96 07/25/23 19:10 Oxygen Delivery Me thod Room Air 07/25/23 19:10 MDM - General Adult Medical Decision Making Patient presents here with increased depression history of schizophrenia his mother had placed him on a 96-hour hold he is medically cleared I spoke to psychiatrist and will admit. Medical Records I reviewed the patient's medical records. Lab Data I reviewed the patient's lab results. 07/25/23 19:33 07/25/23 19:33 Laboratory Results WBC 6.74 10^3/uL (3.29-11.43) 07/25/23 19:33 RBC 5.34 10^6/uL (3.85-5.65) 07/25/23 19:33 Hgb 16.40 g/dL (11.27-16.99) 07/25/23 19:33 Hct 47.1 % (37-53) 07/25/23 19:33 MCV 88.2 fl (82-101) 07/25/23 19:33 MCH 30.7 pg (27-33) 07/25/23 19:33 MCHC 34.8 g/dL (30-55) 07/25/23 19:33 RDW 12.1 % (12.1-15.1) 07/25/23 19:33 Plt Count 187 10^3/cmm (157-399) 07/25/23 19:33 MPV 9.0 fL (7.4-10.4) 07/25/23 19:33 Neut % (Auto) 52.3 % 07/25/23 19:33 Lymph % (Auto) 33.4 % 07/25/23 19:33 Canadian % (Auto) 7.4 % 07/25/23 19:33 Eos % (Auto) 6.2 % 07/25/23 19:33 Baso % (Auto) 0.6 % 07/25/23 19:33 Neut # (Auto) 3.52 10^3/uL (1.8-7.7) 07/25/23 19:33 Lymph # (Auto) 2.3 10^3/uL (0.8-4.8) 07/25/23 19:33 [place] # (Auto) 0.5 10^3/uL (0.2-0.9) 07/25/23 19:33 Eos # (Auto) 0.4 10^3/uL (0.0-0.8) 07/25/23 19:33 Baso # (Auto) 0.0 10^3/uL (0.0-0.1) 07/25/23 19:33 Nucleated RBC % (auto) 0 % 07/25/23 19:33 Nucleated RBCs # 0.0 /100WBC 07/25/23 19:33 Sodium 143 mmol/L (136-145) 07/25/23 19:33 Potassium 4.3 mmol/L (3.5-5.1) 07/25/23 19:33 Chloride 104 mmol/L (98-107) 07/25/23 19:33 Carbon Dioxide 25 mmol/L (22-29) 07/25/23 19:33 Anion Gap 18.3 (5-19) 07/25/23 19:33 BUN 10 mg/dL (6-20) 07/25/23 19:33 Creatinine 0.7 mg/dL (0.7-1.2) 07/25/23 19:33 Calcium 9.7 mg/dL (8.5-10.5) 07/25/23 19:33 Total Bilirubin 0.6 mg/dL (0.15-1.2) 07/25/23 19:33 AST 29 U/L (0-40) 07/25/23 19:33 ALT 39 U/L (0-41) 07/25/23 19:33 Alkaline Phosphatase 105 U/L (40-130) 07/25/23 19:33 Total Protein 8.3 g/dL (6.6-8.7) 07/25/23 19:33 Albumin 5.2 g/dL (3.5-5.2) 07/25/23 19:33 Globulin 3.1 g/dL (1.3-4.6) 07/25/23 19:33 Urine Opiates Screen Negative ng/mL (Negative) 07/25/23 19:34 Ur Barbiturates Screen Negative ng/mL (Negative) 07/25/23 19:34 Ur Phencyclidine Scrn Negative ng/mL (Negative) 07/25/23 19:34 Ur Amphetamines Screen Negative ng/mL (Negative) 07/25/23 19:34 U Benzodiazepines Scrn Negative ng/mL (Negative) 07/25/23 19:34 Urine Cocaine Screen Negative ng/mL (Negative) 07/25/23 19:34 U Marijuana (THC) Screen Positive ng/mL (Negative) H 07/25/23 19:34 No radiology studies performed this visit Discharge Plan Discharge Patient Disposition: Admitted As Inpatient Clinical Impression: Schizophreniform disorder, Depression Prescriptions: No Action aripiprazole 20 mg tablet 20 mg PO DAILY Qty: 30 1RF Coding Level of Care Code ED Environmental Compliance Specialist for Solis Mejias
[2023-07-25 19:38] LABS: Basophils % 0.6 %; Eosinophils # 0.4 10^3/uL (0.0-0.8); Eosinophils % 6.2 %; Hematocrit 47.1 % (37-53); Lymphocytes # 2.3 10^3/uL (0.8-4.8); Lymphocytes % 33.4 %; Mean Corpuscular HGB Conc 34.8 g/dL (30-55); Mean Corpuscular Hemoglobin 30.7 pg (27-33); Mean Corpuscular Volume 88.2 fl (82-101); Monocytes # 0.5 10^3/uL (0.2-0.9); Monocytes % 7.4 %; Neutrophils # 3.52 10^3/uL (1.8-7.7); Neutrophils % 52.3 %; Nucleated Red Blood Cells % 0 %; Platelet Count 187 10^3/cmm (157-399); Red Blood Count 5.34 10^6/uL (3.85-5.65); Red Cell Distribution Width 12.1 % (12.1-15.1); White Blood Count 6.74 10^3/uL (3.29-11.43)
[2023-07-25 19:55] LABS: Alanine Aminotransferase 39 U/L (0-41); Albumin Level 5.2 g/dL (3.5-5.2); Alkaline Phosphatase 105 U/L (40-130); Anion Gap 18.3 (5-19); Aspartate Amino Transferase 29 U/L (0-40); Blood Urea Nitrogen 10 mg/dL (6-20); Calcium 9.7 mg/dL (8.5-10.5); Carbon Dioxide 25 mmol/L (22-29); Chloride 104 mmol/L (98-107); Creatinine Clr Calc Pharmacy 93.1477; Globulin 3.1 g/dL (1.3-4.6); Glomerular Filtration Rate 166.3 mL/min (90-130); Glucose 126 mg/dL (65-115); Osmolality Calculated 297 mOsm/kg (285-295); Potassium 4.3 mmol/L (3.5-5.1); Salicylate 0.5 mg/dL (3-10); Sodium 143 mmol/L (136-145); Total Bilirubin 0.6 mg/dL (0.15-1.2); Total Protein 8.3 g/dL (6.6-8.7)
[2023-07-25 19:57] LABS: Amphetamines Screen Urine Negative (Negative); Barbiturates Screen Urine Negative (Negative); Benzodiazepines Screen Urine Negative (Negative); Cocaine Screen Urine Negative (Negative); Opiate Screen Urine Negative (Negative); PCP Screen Urine Negative (Negative); THC Screen Urine Positive (Negative)
[2023-07-25 20:01] LABS: Acetaminophen < 5.0 ug/mL (10-30); Alcohol Level < 10 mg/dL (0-10)
[2023-07-25 20:45] VITALS: PULSE 94; O2SAT 96
[2023-07-25 20:55] VITALS: PULSE 64; O2SAT 96
[2023-07-25 20:57] VITALS: BP 113/77; PULSE 87; RESP 16; TEMP 36.7; O2SAT 100
[2023-07-25 21:49] VITALS: BP 113/77; PULSE 87; RESP 16; TEMP 36.7; O2SAT 100
[2023-07-26 06:00] VITALS: BP 108/68; PULSE 52; RESP 15; TEMP 36.7; O2SAT 98
--- NOTE | 2023-07-26 07:38 | P.NPUHP_ITS ---
Providers/Chief Complaint 2 Admitting Physician: Fidel Aguayo MD Chief Complaint: 96 hr hold [facility] NPU History of Present Illness Isamar Baca is a 23 year old male who presented to the emergency department with the following report: Chief complaint: Psychiatric Symptoms Stated complaint: 96 hr hold Time Seen by Provider: 07/25/23 19:10 Source: patient and police Limitations: no limitations History of Present Illness: 23-year-old male is here with police under 96-hour hold. Patient states that he has been quite depressed he has been withdrawn in his room he has not been taking his omeprazole. Patient's mother filled out a 96 because she is concerned about his severe depression he denies SI or HI to me. He is quite withdrawn. Associated symptoms: Deny chest pain, dyspnea, headache(s), nausea, rash or vomiting. He was admitted to the neuropsychiatric unit for definitive treatment of those issues. He is known to this ghost writer from his last hospitalization in November through December 2022 and an excerpt of that discharge summary is included below for historical context. He denies substantive changes but does report that he did discontinue his medication after about a 4 to 6 weeks after discharge. He presents with similar complaints except for a stronger presentation of depression. He continues to have significant issues with nutrition which we will monitor closely during this stay. He presents reporting that he has no explanation for what happened. He reports that he just started feeling more depressed and started getting more isolative. He reports staying in his room and eating less and having no motivation to do things that we talked about the last time he was here including getting a job or going to school or doing anything that moves his dial forward. He reports that he thinks the medication has been helping before he stopped but had no explanation for why he stopped but was very clear that he is feeling depression with low mood, feelings of hopelessness/helplessness and worthlessness. He reports sleep difficulties and appetite suppression. He denies suicidality but does report that he is not enjoying things as much anymore. We discussed the risk benefits and alternatives of starting an antidepressant and considering restarting Abilify and he understood and agreed to proceed as is documented in this note. Per his 12/26/2022 [facility] inpatient psychiatric discharge summary: Discharge Diagnosis (1) Psychosis: Status: Acute (2) Schizophreniform disorder: Status: Acute Reason for Visit Reason for Visit: 96 Hold Brief History: History of Present Illness Isamar Baca is a 22 year old male who presented to the emergency department with the following report: Chief Complaint: Psychiatric Symptoms Stated Complaint: 96 Hold Time Seen by Provider: 12/08/22 15:20 Source: patient Mode of arrival: other (Accompanied by law enforcement) History of Present Illness: 22-year-old male brought into the emergency room and accompanied by police. Family filled out 96-hour paperwork called and had certified at the court house. We read the patient the concerns from the affidavits in his responses simply shrugged his shoulders he does not feel these are big issues he denies any suicidal or homicidal ideation patient is moderately cachectic he does admit he has been losing weight lately when asked him about not taking care of himself he got a little bit teary-eyed and emotional but he was not confrontational. He denies suicidal or homicidal ideation every time he is asked. He states he simply does not understand why he was here he denies previously being hospitalized for mental health issues he has not seen by psychiatry he is not currently on any medications. No auditory or visual hallucinations. Associated symptoms: Deny auditory hallucinations, visual hallucinations, delusions, depression, homicidal ideation, suicidal ideation or racing thoughts. He was admitted to the neuropsychiatric unit for definitive treatment of those issues. He presents today reporting that he has never been in a psychiatric hospital or receive psychiatric care. He has never been on psychiatric medications now or in the past and reports he does not know why he is here on a 96-hour hold. We discussed the affidavits suggesting that he has lost considerable amount of weight and is not taking care of himself and he only acknowledges that he has lost considerable weight recently. He reports that he vapes and that started in the last year or so but denied alcohol marijuana or any other illicit drug use. He has never been to rehab or had a DUI denies any drug and alcohol charges. He reports that he has never had any psychiatric symptoms that he is aware of and had no explanation for the sudden change in weight though he reports he is always been thin nor the recent change in his self-care. We discussed needing to reach out to his family for some collateral information which he did not refuse. Patient denied symptoms consistent with depression, anxiety, schizophrenia, bipolar, ADHD, PTSD or personality disorders. Psychiatric history: As above. Substance abuse history: As above. Family history: He denies any mental health or addiction issues that run in the family and denied any suicide attempts or completions in his family. Developmental history: He reports that he had no issues at and reports that he learned to walk and talk and met his developmental milestones on time. He reports that he did not need speech therapy, learning support, emotional support or special education classes. Psychosocial history: He reports that his parents were together when he was born but they did split up. He reports that his parents are both from [place]. He reports that he has a younger brother that is a product of that same union and that his mother does not have any other children but that his father has 2 other children. He reports that his childhood was fine and that there was no neglect or emotional, physical or sexual abuse. He denied any child protective services or any traumatic events throughout his life he denied any symptoms consistent with PTSD nightmares or flashbacks etc. He endorsed getting to the 10th grade and getting his GED and doing some college courses. He reports that he is heterosexual and his longest relationship was 3 years. He has never been , has never had children, has never been in the and he endorses being a Orthodox. 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 Because that was in [place]. He reports he currently lives in a house with his mother and one of her coworkers. Legal history: He denied any legal peril. Medical history: He denies any issues other than his recent significant weight loss. Hospital Course During the hospitalization, the patient had routine laboratory studies which were within normal limits except for a few outliers. Additionally, there was a general medical evaluation which was also within normal limits and revealed no new acute processes. At the time of discharge, lethality was denied and psychosis was resolving. Mood and anxiety were well managed. The patient was placed on a 21-day hold out of concerns regarding the patient initially not wanting to take medication in the extreme weight loss. Patient had dietary consult which helped the patient in regards to refeeding. He was able to slowly gain weight while he was here on the unit as he had reached a weight up to a peak of 98 pounds. He had been started on Abilify at 5 mg daily and this was titrated up to a dose of 20 mg prior to discharge with noted improvement in motivation and improved ability regarding execution and completion of daily tasks including self-care. The patient endorsed a plan to avoid all drugs of abuse and follow up with the aftercare recommendations of the treatment team. The patient was evaluated and deemed to be absent credible lethality and had achieved the maximum benefit from an inpatient hospitalization, and so was discharged. Meds NPU Home Medications Medication Instructions Recorded Confirmed Last Taken Type No Known Home Medications 07/26/23 07/26/23 Unknown History Allergies Allergy/AdvReac Type Severity Reaction Status Date / Time No Known Allergies Allergy Verified 07/25/23 19:16 PFSH NPU 2 PFSH: Medical History Psychiatric care Family History Grandfather Dementia Social History Smoking and tobacco/nicotine status: former use of tobacco/nicotine Alcohol intake: never Substance/Drug Use: never Mental Status Exam 2 MSE Comments: This is a underweight/cachectic -Botswanan male in hospital scrubs with limited grooming and eye contact. No abnormal movements except for psychomotor retardation. Cooperative with exam in mild distress. Speech was limited and decreased rate and volume. Mood described as depressed, affect subdued and somewhat guarded. Thought process linear. Thought content: Patient denied suicidal or homicidal ideation, there were no delusions reported but he seems somewhat guarded/paranoid, he denied auditory or visual hallucinations. Attention and concentration appeared intact and memory seemed reliable, but none were formally tested. He is alert and oriented to person and place. Insight and judgment appear limited impulse control appears limited Vitals/I&O/Wt Last Vital Signs Temp 98.0 F 07/26/23 06:00 Pulse 52 L 07/26/23 06:00 Resp 15 07/26/23 06:00 BP 108/68 07/26/23 06:00 Pulse Ox 98 07/26/23 06:00 O2 Del Method Room Air 07/25/23 20:57 Weight last 48 hrs Weight 40.823 kg Data NPU 07/25/23 19:33 07/25/23 19:33 A&P Assessment and plan (1) Psychosis: (2) Schizophreniform disorder: Plan This is a 23-year-old male of descent who presents again on a 96-hour hold with history of psychosis and schizophreniform disorder presenting this time with endorsed depression, off of medication but this time seeming invested in getting help and treatment. 1. Start Prozac 20 mg p.o. daily and consider restarting Abilify 10 mg p.o. daily 2. Continue every 15 minute checks for safety. 3. Encourage individual, group and milieu therapy. 4. We will get collateral information from family to get a sense of what other symptoms they may have seen. He previously presented psychotic but is not showing any signs of psychosis on this presentation except for possibly paranoia so we will monitor and talk to family. Involuntary Hold Information 2 96 Hour Hold: 96 Hour Involuntary Admission: Yes 96 Hour Hold Ending Date: 07/29/23 96 Hour Hold Ending Time: 19:08 Attestations NPU 2 Medical Necessity Statement*: Inpatient hospitalization is medically necessary and the clinically appropriate intervention at this time. We will monitor medications and make changes as indicated. He will be in the hospital for over 2 midnights. Likely length of stay 4 to 6 days. Coding Level of Care Code Acute Code for [facility] Fwd Diagnoses Psychosis F29 Schizophreniform disorder F20.81
[2023-07-26] MEDS: nicotine 2 mg Gum BUCCAL ×3 (08:43→16:28)
--- NOTE | 2023-07-26 09:40 | PC.NURSE ---
AT AROUND 0900 STAFF PERFORMED RANDOM ROOM CHECKS FOR CONTRABAND. DURING THIS RANDOM CHECK NO CONTRABAND WAS FOUND IN PT ROOM. PT WAS COOPERATIVE WITH CHECK.
[2023-07-26 14:00] VITALS: BP 110/76; PULSE 96; RESP 16; TEMP 36.6; O2SAT 96
[2023-07-26 20:06] VITALS: BP 99/66; PULSE 79; RESP 15; TEMP 36.7; O2SAT 98
[2023-07-27 06:00] VITALS: BP 114/72; PULSE 87; RESP 16; TEMP 36.7; O2SAT 100
[2023-07-27] MEDS: nicotine 2 mg Gum BUCCAL (12:52)
--- NOTE | 2023-07-27 13:46 | PC.NURSE ---
AT AROUND 1215 RANDOM ROOM CHECK WAS PERFORMED BY STAFF. DURING THIS ROOM CHECK NO CONTRABAND WAS FOUND IN THIS PATIENT ROOM. PT WAS COOPERATIVE WITH ROOM CHECK.
[2023-07-27 14:00] VITALS: BP 110/77; PULSE 109; RESP 17; TEMP 36.6; O2SAT 95
--- NOTE | 2023-07-27 15:59 | W.PM.NPUPNS ---
Subjective NPU Subjective: Patient presented today reporting that he is doing okay. He reports he has not noticed anything with the Prozac thus far but continues to report depression. We continue to discuss the possible benefits of restarting his previous mood stabilizer with that we would be okay with the Prozac for now. He continued to report the symptoms that led to him being hospitalized and denied any specific side effects of the medication. Mental Status Exam MSE Comments: This is a underweight/cachectic -Tunisian male in hospital scrubs with limited grooming and eye contact. No abnormal movements except for psychomotor retardation. Cooperative with exam in mild distress. Speech was limited and decreased rate and volume. Mood described as depressed, affect subdued and somewhat guarded. Thought process linear. Thought content: Patient denied suicidal or homicidal ideation, there were no delusions reported but he seems somewhat guarded/paranoid, he denied auditory or visual hallucinations. Attention and concentration appeared intact and memory seemed reliable, but none were formally tested. He is alert and oriented to person and place. Insight and judgment appear limited impulse control appears limited Vitals/I&O/Wt Last Vital Signs Temp 97.8 F 07/27/23 14:00 Pulse 109 H 07/27/23 14:00 Resp 17 07/27/23 14:00 BP 110/77 07/27/23 14:00 Pulse Ox 95 07/27/23 14:00 O2 Del Method Room Air 07/27/23 06:00 Weight last 48 hrs Weight 43.273 kg Weight 40.823 kg Data NPU 07/25/23 19:33 07/25/23 19:33 A&P Assessment and plan (1) Psychosis: (2) Schizophreniform disorder: Plan This is a 23-year-old male of descent who presents again on a 96-hour hold with history of psychosis and schizophreniform disorder presenting this time with endorsed depression, off of medication but this time seeming invested in getting help and treatment. 1. Started Prozac 20 mg p.o. daily and consider restarting Abilify 10 mg p.o. daily 2. Continue every 15 minute checks for safety. 3. Encourage individual, group and milieu therapy. 4. We will get collateral information from family to get a sense of what other symptoms they may have seen. He previously presented psychotic but is not showing any signs of psychosis on this presentation except for possibly paranoia so we will monitor and talk to family. Involuntary Hold Information 96 Hour Hold: 96 Hour Involuntary Admission: Yes 96 Hour Hold Ending Date: 07/29/23 96 Hour Hold Ending Time: 19:08 Attestations NPU Medical Necessity Statement*: Inpatient hospitalization is medically necessary and the clinically appropriate intervention at this time. We will monitor medications and make changes as indicated. Likely length of stay 4 to 6 days. Coding Level of Care Code Acute Code for [facility] Fwd Diagnoses Psychosis F29 Schizophreniform disorder F20.81
[2023-07-27] MEDS: trazodone 50 mg Tablet PO (19:57)
[2023-07-27 20:09] VITALS: BP 113/77; PULSE 72; RESP 16; TEMP 36.8; O2SAT 96
[2023-07-27 22:15] VITALS: BP 112/76; PULSE 79; RESP 18; TEMP 36.7; O2SAT 99
[2023-07-27] MEDS: fluoxetine 20 mg Capsule PO (22:15)
[2023-07-28 06:00] VITALS: BP 91/62; PULSE 115; RESP 16; TEMP 36.7; O2SAT 98
[2023-07-28] MEDS: nicotine 2 mg Gum BUCCAL (08:40)
[2023-07-28] MEDS: fluoxetine 20 mg Capsule PO (08:40)
--- NOTE | 2023-07-28 13:29 | P.NPUPN_ITS ---
Subjective NPU 2 Subjective: Patient presented today reporting that he is doing okay. We talked about his meeting with nutrition and them wondering about considerations of a trial of Remeron to help with weight gain and also assist with depression. We discussed the risks, benefits and alternatives of a trial of Remeron and he understood and agreed to proceed as is documented in this note. We also discussed the fact that his hold is up tomorrow and that we would meet tomorrow to discuss whether he was truly ready to go home or whether we still have work to do here. He denied side effects to the medication. Mental Status Exam 2 MSE Comments: This is a underweight/cachectic -Dutch male in hospital scrubs with limited grooming and eye contact. No abnormal movements except for psychomotor retardation. Cooperative with exam in mild distress. Speech was limited and decreased rate and volume. Mood described as depressed, affect subdued and somewhat guarded. Thought process linear. Thought content: Patient denied suicidal or homicidal ideation, there were no delusions reported but he seems somewhat guarded/paranoid, he denied auditory or visual hallucinations. Attention and concentration appeared intact and memory seemed reliable, but none were formally tested. He is alert and oriented to person and place. Insight and judgment appear limited impulse control appears limited Vitals/I&O/Wt Last Vital Signs Temp 98.1 F 07/28/23 06:00 Pulse 115 H 07/28/23 06:00 Resp 16 07/28/23 06:00 BP 91/62 07/28/23 06:00 Pulse Ox 98 07/28/23 06:00 O2 Del Method Room Air 07/28/23 06:00 Weight last 48 hrs Weight 43.636 kg Weight 43.273 kg Data NPU 07/25/23 19:33 07/25/23 19:33 A&P Assessment and plan (1) Psychosis: (2) Schizophreniform disorder: Plan This is a 23-year-old male of descent who presents again on a 96-hour hold with history of psychosis and schizophreniform disorder presenting this time with endorsed depression, off of medication but this time seeming invested in getting help and treatment. 1. Started Prozac 20 mg p.o. daily and consider restarting Abilify 10 mg p.o. daily 2. Continue every 15 minute checks for safety. 3. Encourage individual, group and milieu therapy. 4. We will get collateral information from family to get a sense of what other symptoms they may have seen. He previously presented psychotic but is not showing any signs of psychosis on this presentation except for possibly paranoia so we will monitor and talk to family. 5. Appreciate zigzagger consult will initiate mirtazapine 15 mg p.o. nightly. Involuntary Hold Information 2 96 Hour Hold: 96 Hour Involuntary Admission: Yes 96 Hour Hold Ending Date: 07/29/23 96 Hour Hold Ending Time: 19:08 Attestations NPU 2 Medical Necessity Statement*: Inpatient hospitalization is medically necessary and the clinically appropriate intervention at this time. We will monitor medications and make changes as indicated. Likely length of stay 2-5 days. Coding Level of Care Code Acute Code for [facility] Fwd Diagnoses Psychosis F29 Schizophreniform disorder F20.81
[2023-07-28 14:00] VITALS: BP 99/62; PULSE 122; RESP 15; TEMP 36.6; O2SAT 98
[2023-07-28 19:52] VITALS: BP 123/81; PULSE 96; RESP 15; TEMP 37.1; O2SAT 97
[2023-07-28] MEDS: mirtazapine 15 mg Tablet PO (20:50)
[2023-07-29 06:00] VITALS: BP 140/96; PULSE 88; RESP 14; TEMP 36.8; O2SAT 95
[2023-07-29] MEDS: fluoxetine 20 mg Capsule PO (08:30)
[2023-07-29] MEDS: nicotine 2 mg Gum BUCCAL ×2 (11:10→20:03)
[2023-07-29 13:11] VITALS: BP 111/76; PULSE 102; RESP 16; TEMP 37.4; O2SAT 97
[2023-07-29] MEDS: nicotine 4 mg lozenge MUCOUS MEM (14:54)
--- NOTE | 2023-07-29 17:10 | P.NPUPN_ITS ---
Subjective NPU 2 Subjective: Patient presented today reporting that he is doing all right. We had a lengthy discussion about the decision to file for 21-day hold. We discussed concerns about his malnutrition and how he has not been eating and losing weight with his depression. We discussed wanting to see some improvement in his weight with the Remeron. We also talked about the possibility of still restarting Abilify as an adjunct therapy for his antidepressants. He reported understanding the reasoning and denied having a problem with the plan. He denied any side effects to the medication. Mental Status Exam 2 MSE Comments: This is a underweight/cachectic -[place]icarag[place] male in hospital scrubs with limited grooming and eye contact. No abnormal movements except for psychomotor retardation. Cooperative with exam in mild distress. Speech was limited and decreased rate and volume. Mood described as depressed, affect subdued and somewhat guarded. Thought process linear. Thought content: Patient denied suicidal or homicidal ideation, there were no delusions reported but he seems somewhat guarded/paranoid, he denied auditory or visual hallucinations. Attention and concentration appeared intact and memory seemed reliable, but none were formally tested. He is alert and oriented to person and place. Insight and judgment appear limited impulse control appears limited Vitals/I&O/Wt Last Vital Signs Temp 99.4 F 07/29/23 13:11 Pulse 102 H 07/29/23 13:11 Resp 16 07/29/23 13:11 BP 111/76 07/29/23 13:11 Pulse Ox 97 07/29/23 13:11 O2 Del Method Room Air 07/29/23 13:11 Weight last 48 hrs Weight 40.823 kg Weight 43.182 kg Weight 43.636 kg Data NPU 07/25/23 19:33 07/25/23 19:33 A&P Assessment and plan (1) Psychosis: (2) Schizophreniform disorder: Plan This is a 23-year-old male of descent who presents again on a 96-hour hold with history of psychosis and schizophreniform disorder presenting this time with endorsed depression, off of medication but this time seeming invested in getting help and treatment. 1. Started Prozac 20 mg p.o. daily and consider restarting Abilify 10 mg p.o. daily 2. Continue every 15 minute checks for safety. 3. Encourage individual, group and milieu therapy. 4. We will get collateral information from family to get a sense of what other symptoms they may have seen. He previously presented psychotic but is not showing any signs of psychosis on this presentation except for possibly paranoia so we will monitor and talk to family. 5. Appreciate ballet teacher consult will initiate mirtazapine 15 mg p.o. nightly. 6. Filed a 21-day hold 07/29/2023 Involuntary Hold Information 2 96 Hour Hold: 96 Hour Involuntary Admission: Yes 96 Hour Hold Ending Date: 07/29/23 96 Hour Hold Ending Time: 19:08 Attestations NPU 2 Medical Necessity Statement*: Inpatient hospitalization is medically necessary and the clinically appropriate intervention at this time. We will monitor medications and make changes as indicated. Likely length of stay 2-5 days. Coding Level of Care Code Acute Code for [facility] Fwd Diagnoses Psychosis F29 Schizophreniform disorder F20.81
[2023-07-29] MEDS: mirtazapine 15 mg Tablet PO (20:00)
[2023-07-29 20:14] VITALS: BP 116/79; PULSE 91; RESP 17; TEMP 37.3; O2SAT 98
[2023-07-30 06:00] VITALS: BP 122/83; PULSE 86; RESP 18; TEMP 36.7; O2SAT 99
[2023-07-30] MEDS: fluoxetine 20 mg Capsule PO (08:35)
--- NOTE | 2023-07-30 09:34 | W.PM.NPUPNS ---
Subjective NPU Subjective: Patient presented today reporting that he is doing a little better. He continues to be isolative in his room and we discussed the fact that Dr. Huizar would be here tomorrow as a sort of second opinion as we try to determine when would be the safest time for discharge. Also we discussed though continuing the conversation about whether there is a place for Abilify or some other mood stabilizer in his treatment given his initial presentation last year with psychotic features. We continue to do the weights and have dietary interventions and we discussed the importance of him addressing his nutrition with him having a some weight gain since last measurement. He denied any side effects to the medication. Mental Status Exam MSE Comments: This is a underweight/cachectic -[place] male in hospital scrubs with limited grooming and eye contact. No abnormal movements except for psychomotor retardation. Cooperative with exam in mild distress. Speech was limited and decreased rate and volume. Mood described as depressed, affect subdued and somewhat guarded. Thought process linear. Thought content: Patient denied suicidal or homicidal ideation, there were no delusions reported but he seems somewhat guarded/paranoid, he denied auditory or visual hallucinations. Attention and concentration appeared intact and memory seemed reliable, but none were formally tested. He is alert and oriented to person and place. Insight and judgment appear limited impulse control appears limited Vitals/I&O/Wt Last Vital Signs Temp 98.0 F 07/30/23 06:00 Pulse 86 07/30/23 06:00 Resp 18 07/30/23 06:00 BP 122/83 07/30/23 06:00 Pulse Ox 99 07/30/23 06:00 O2 Del Method Room Air 07/30/23 06:00 Weight last 48 hrs Weight 44.543 kg Weight 40.823 kg Weight 43.182 kg Data NPU 07/25/23 19:33 07/25/23 19:33 A&P Assessment and plan (1) Psychosis: (2) Schizophreniform disorder: Plan This is a 23-year-old male of descent who presents again on a 96-hour hold with history of psychosis and schizophreniform disorder presenting this time with endorsed depression, off of medication but this time seeming invested in getting help and treatment. 1. Started Prozac 20 mg p.o. daily and consider restarting Abilify 10 mg p.o. daily 2. Continue every 15 minute checks for safety. 3. Encourage individual, group and milieu therapy. 4. We will get collateral information from family to get a sense of what other symptoms they may have seen. He previously presented psychotic but is not showing any signs of psychosis on this presentation except for possibly paranoia so we will monitor and talk to family. 5. Appreciate apartment maintenance technician consult will initiate mirtazapine 15 mg p.o. nightly. 6. Filed a 21-day hold 07/29/2023 Involuntary Hold Information 96 Hour Hold: 96 Hour Involuntary Admission: Yes 96 Hour Hold Ending Date: 07/29/23 96 Hour Hold Ending Time: 19:08 Attestations NPU Medical Necessity Statement*: Inpatient hospitalization is medically necessary and the clinically appropriate intervention at this time. We will monitor medications and make changes as indicated. Likely length of stay 2-5 days. Coding Level of Care Code Acute Code for [facility] Fwd Diagnoses Psychosis F29 Schizophreniform disorder F20.81
[2023-07-30] MEDS: nicotine 2 mg Gum BUCCAL ×3 (10:00→19:43)
[2023-07-30 13:54] VITALS: BP 114/58; PULSE 104; RESP 16; TEMP 36.6; O2SAT 98
[2023-07-30] MEDS: mirtazapine 15 mg Tablet PO (19:44)
[2023-07-30 19:49] VITALS: BP 112/79; PULSE 85; RESP 17; TEMP 37.2; O2SAT 97
[2023-07-31 05:59] VITALS: BP 122/90; PULSE 71; RESP 16; TEMP 36.7; O2SAT 98
[2023-07-31] MEDS: fluoxetine 20 mg Capsule PO ×2 (08:26→08:27)
[2023-07-31] MEDS: nicotine 4 mg lozenge MUCOUS MEM (13:12)
--- NOTE | 2023-07-31 13:40 | P.NPUPN_ITS ---
Subjective NPU 2 Subjective: 23-year-old male with schizophreniform d isorder disorder admitted with depression currently on Remeron and Prozac. Patient had appeared isolative on the milieu. He reported that his sleep was better. He had continued to be unable to describe why his appetite had diminished and continued to appear somewhat evasive in regards to his issues leading to his hospitalization. He had reported that he had stopped his Abilify for unclear reasons. He had reported a lack of motivation and reported low energy although he stated that he felt the medications were helping him although he was unable to describe why and in what way it was helping him. Mental Status Exam 2 MSE Comments: This is a underweight/cachectic -[place] male in hospital scrubs with limited grooming and eye contact. No abnormal movements except for signficant psychomotor retardation. He was cooperative with exam in mild distress. Speech was limited in productivity and decreased in rate and volume. Mood described as depressed. His affect was odd and subdued. Thought process was linear and superficial. Thought content: Patient denied suicidal or homicidal ideation, there were no delusions reported although he appeared guarded. He denied auditory or visual hallucinations and did not appear to be responding to internal stimuli. Attention and concentration appeared intact and memory seemed reliable, but none were formally tested. He is alert and oriented to person and place. Insight and judgment appear limited. Impulse control appears limited Vitals/I&O/Wt Last Vital Signs Temp 98.1 F 07/31/23 05:59 Pulse 71 07/31/23 05:59 Resp 16 07/31/23 05:59 BP 122/90 07/31/23 05:59 Pulse Ox 98 07/31/23 05:59 O2 Del Method Room Air 07/30/23 13:54 Weight last 48 hrs Weight 45.813 kg Weight 44.543 kg Data NPU 07/25/23 19:33 07/25/23 19:33 A&P Assessment and plan (1) Psychosis: (2) Schizophreniform disorder: (3) Depression: Plan This is a 23-year-old male of descent who presents again on a 96-hour hold with history of psychosis and schizophreniform disorder presenting this time with endorsed depression, off of medication but this time seeming invested in getting help and treatment. 1. Started Prozac 20 mg p.o. daily and start zyprexa 2.5mg at night to target psychosis. 2. Continue every 15 minute checks for safety. 3. Encourage individual, group and milieu therapy. 4. We will get collateral information from family to get a sense of what other symptoms they may have seen. He previously presented psychotic but is not showing any signs of psychosis on this presentation except for possibly paranoia so we will monitor and talk to family. 5. Remeron 15mg at night 6. Filed a 21-day hold 07/29/2023 Involuntary Hold Information 2 96 Hour Hold: 96 Hour Involuntary Admission: Yes 96 Hour Hold Ending Date: 07/29/23 96 Hour Hold Ending Time: 19:08 Attestations NPU 2 Medical Necessity Statement*: Inpatient hospitalization is medically necessary and the clinically appropriate intervention at this time. We will monitor medications and make changes as indicated. His likely length of stay is 3-5 days. Coding Level of Care Code Acute Code for [facility] Fwd Diagnoses Psychosis F29 Schizophreniform disorder F20.81 Depression F32.A
[2023-07-31 13:59] VITALS: BP 136/88; PULSE 115; RESP 16; TEMP 36.8; O2SAT 99
[2023-07-31] MEDS: nicotine 2 mg Gum BUCCAL ×2 (17:06→20:38)
[2023-07-31 20:22] VITALS: BP 110/77; PULSE 117; RESP 18; TEMP 36.6; O2SAT 97
[2023-07-31] MEDS: mirtazapine 15 mg Tablet PO (20:38)
[2023-07-31] MEDS: OLANZapine 5 mg TABLET 2.5 MG PO (20:38)
[2023-08-01 06:00] VITALS: BP 129/95; PULSE 112; RESP 15; TEMP 36.6; O2SAT 100
[2023-08-01] MEDS: fluoxetine 20 mg Capsule PO (08:02)
[2023-08-01] MEDS: nicotine 2 mg Gum BUCCAL ×3 (12:15→21:26)
[2023-08-01 14:00] VITALS: BP 134/91; PULSE 114; RESP 16; TEMP 36.9; O2SAT 95
--- NOTE | 2023-08-01 16:23 | W.PM.NPUPNS ---
Subjective NPU Subjective: 23-year-old male with previous history of psychosis admitted with depressed mood and suicidal ideation. The patient had reported that he was feeling better today. He reported no side effects from his medications. He had reported that he was interested in considering psychotherapy. He had described having significant stressors at home and stated that his problems with productivity and low motivation had been a primary issue at home. He denied any paranoia nor did he endorse any psychotic symptoms. He reported that his energy was better but still reported having some difficulties with eating well. Staff notes the patient had been more social and was able to attend groups. He had denied any substance use issues. Mental Status Exam MSE Comments: This is a underweight/cachectic -Honduran male in hospital scrubs with improved grooming and eye contact today. No abnormal movements except for mild psychomotor retardation. He was cooperative with exam in mild distress. Speech was limited in productivity and diminished in rate and volume. Mood described as better. His affect was restricted. Thought process was linear and superficial. Thought content: Patient denied suicidal or homicidal ideation, there were no delusions reported although he appeared guarded. He denied auditory or visual hallucinations and did not appear to be responding to internal stimuli. Attention and concentration appeared intact and memory seemed reliable, but none were formally tested. He is alert and oriented to person and place. Insight was improving and judgment appear limited. Impulse control appears to be improving. Vitals/I&O/Wt Last Vital Signs Temp 98.5 F 08/01/23 14:00 Pulse 114 H 08/01/23 14:00 Resp 16 08/01/23 14:00 BP 134/91 08/01/23 14:00 Pulse Ox 95 08/01/23 14:00 O2 Del Method Room Air 08/01/23 14:00 Weight last 48 hrs Weight 43.998 kg Weight 45.813 kg Data NPU 07/25/23 19:33 07/25/23 19:33 A&P Assessment and plan (1) Psychosis: (2) Schizophreniform disorder: (3) Depression: Plan This is a 23-year-old male of descent who presents again on a 96-hour hold with history of psychosis and schizophreniform disorder presenting this time with endorsed depression, off of medication but this time seeming invested in getting help and treatment. 1. Continue Prozac 20 mg p.o. daily and zyprexa 2.5mg at night. 2. Continue every 15 minute checks for safety. 3. Encourage individual, group and milieu therapy. 4. We will get collateral information from family to get a sense of what other symptoms they may have seen. He previously presented psychotic but is not showing any signs of psychosis on this presentation except for possibly paranoia so we will monitor and talk to family. 5. Remeron 15mg at night 6. Likely discharge tommorow. Involuntary Hold Information 96 Hour Hold: 96 Hour Involuntary Admission: Yes 96 Hour Hold Ending Date: 07/29/23 96 Hour Hold Ending Time: 19:08 Attestations NPU Medical Necessity Statement*: Inpatient hospitalization is medically necessary and the clinically appropriate intervention at this time. We will monitor medications and make changes as indicated. His likely length of stay is 3-5 days. Coding Level of Care Code Acute Code for [facility] Fwd Diagnoses Psychosis F29 Schizophreniform disorder F20.81 Depression F32.A
[2023-08-01] MEDS: OLANZapine 5 mg TABLET 2.5 MG PO (18:56)
[2023-08-01] MEDS: nicotine 4 mg lozenge MUCOUS MEM (18:57)
[2023-08-01] MEDS: mirtazapine 15 mg Tablet PO (18:57)
[2023-08-01 20:38] VITALS: BP 138/60; PULSE 102; RESP 18; TEMP 37.3; O2SAT 97
[2023-08-02 06:00] VITALS: BP 129/94; PULSE 103; RESP 17; TEMP 36.7; O2SAT 99
[2023-08-02] MEDS: nicotine 2 mg Gum BUCCAL ×2 (06:32→08:37)
[2023-08-02] MEDS: fluoxetine 20 mg Capsule PO (08:37)
[2023-08-02] MEDS: nicotine 4 mg lozenge MUCOUS MEM (12:43)
--- NOTE | 2023-08-02 13:34 | P.NPUDS_ITS ---
Diagnoses at Discharge Discharge Diagnosis (1) Psychosis: Status: Resolved (2) Schizophreniform disorder: Status: Acute (3) Depression: Status: Acute Reason for Visit Reason for Visit: 96 hr hold Brief History: History of Present Illness Isamar Baca is a 23 year old male who presented to the emergency department with the following report: Chief complaint: Psychiatric Symptoms Stated complaint: 96 hr hold Time Seen by Provider: 07/25/23 19:10 Source: patient and police Limitations: no limitations History of Present Illness: 23-year-old male is here with police und er 96-hour hold. Patient states that he has been quite depressed he has been withdrawn in his room he has not been taking his omeprazole. Patient's mother filled out a 96 because she is concerned about his severe depression he denies SI or HI to me. He is quite withdrawn. Associated symptoms: Deny chest pain, dyspnea, headache(s), nausea, rash or vomiting. He was admitted to the neuropsychiatric unit for definitive treatment of those issues. 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 He denies substantive changes but does report that he did discontinue his medication after about a 4 to 6 weeks after discharge. He presents with similar complaints except for a stronger presentation of depression. He continues to have significant issues with nutrition which we will monitor closely during this stay. He presents reporting that he has no explanation for what happened. He reports that he just started feeling more depressed and started getting more isolative. He reports staying in his room and eating less and having no motivation to do things that we talked about the last time he was here including getting a job or going to school or doing anything that moves his dial forward. He reports that he thinks the medication has been helping before he stopped but had no explanation for why he stopped but was very clear that he is feeling depression with low mood, feelings of hopelessness/helplessness and worthlessness. He reports sleep difficulties and appetite suppression. He denies suicidality but does report that he is not enjoying things as much anymore. We discussed the risk benefits and alternatives of starting an antidepressant and considering restarting Abilify and he understood and agreed to proceed as is documented in this note. Per his 12/26/2022 [facility] inpatient psychiatric discharge summary: Discharge Diagnosis (1) Psychosis: Status: Acute (2) Schizophreniform disorder: Status: Acute Reason for Visit Reason for Visit: 96 Hold Brief History: History of Present Illness Isamar Baca is a 22 year old male who presented to the emergency department with the following report: Chief Complaint: Psychiatric Symptoms Stated Complaint: 96 Hold Time Seen by Provider: 12/08/22 15:20 Source: patient Mode of arrival: other (Accompanied by law enforcement) History of Present Illness: 22-year-old male brought into the emerge ncy room and accompanied by police. Family filled out 96-hour paperwork called and had certified at the court house. We read the patient the concerns from the affidavits in his responses simply shrugged his shoulders he does not feel these are big issues he denies any suicidal or homicidal ideation patient is moderately cachectic he does admit he has been losing weight lately when asked him about not taking care of himself he got a little bit teary-eyed and emotional but he was not confrontational. He denies suicidal or homicidal ideation every time he is asked. He states he simply does not understand why he was here he denies previously being hospitalized for mental health issues he has not seen by psychiatry he is not currently on any medications. No auditory or visual hallucinations. Associated symptoms: Deny auditory hallucinations, visual hallucinations, delusions, depression, homicidal ideation, suicidal ideation or racing thoughts. He was admitted to the neuropsychiatric unit for definitive treatment of those issues. He presents today reporting that he has never been in a psychiatric hospital or receive psychiatric care. He has never been on psychiatric medications now or in the past and reports he does not know why he is here on a 96-hour hold. We discussed the affidavits suggesting that he has lost considerable amount of weight and is not taking care of himself and he only acknowledges that he has lost considerable weight recently. He reports that he vapes and that started in the last year or so but denied alcohol marijuana or any other illicit drug use. He has never been to rehab or had a DUI denies any drug and alcohol charges. He reports that he has never had any psychiatric symptoms that he is aware of and had no explanation for the sudden change in weight though he reports he is always been thin nor the recent change in his self-care. We discussed needing to reach out to his family for some collateral information which he did not refuse. Patient denied symptoms consistent with depression, anxiety, schizophrenia, bipolar, ADHD, PTSD or personality disorders. Psychiatric history: As above. Substance abuse history: As above. Family history: He denies any mental health or addiction issues that run in the family and denied any suicide attempts or completions in his family. Developmental history: He reports that he had no issues at and reports that he learned to walk and talk and met his developmental milestones on time. He reports that he did not need speech therapy, learning support, emotional support or special education classes. Psychosocial history: He reports that his parents were together when he was born but they did split up. He reports that his parents are both from [place]. He reports that he has a younger brother that is a product of that same union and that his mother does not have any other children but that his father has 2 other children. He reports that his childhood was fine and that there was no neglect or emotional, physical or sexual abuse. He denied any child protective services or any traumatic events throughout his life he denied any symptoms consistent with PTSD nightmares or flashbacks etc. He endorsed getting to the 10th grade and getting his GED and doing some college courses. He reports that he is heterosexual and his longest relationship was 3 years. He has never been , has never had children, has never been in the and he endorses being a Taoism. 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 Because that was in [place]. He reports he currently lives in a house with his mother and one of her coworkers. Legal history: He denied any legal peril. Medical history: He denies any issues other than his recent significant weight loss. Hospital Course During the hospitalization, the patient had routine laboratory studies which were within normal limits except for a few outliers. Additionally, there was a general medical evaluation which was also within normal limits and revealed no new acute processes. At the time of discharge, lethality was denied and psychosis was resolving. Mood and anxiety were well managed. The patient was placed on a 21-day hold out of concerns regarding the patient initially not wanting to take medication in the extreme weight loss. Patient had dietary consult which helped the patient in regards to refeeding. He was able to slowly gain weight while he was here on the unit as he had reached a weight up to a peak of 98 pounds. He had been started on Abilify at 5 mg daily and this was titrated up to a dose of 20 mg prior to discharge with noted improvement in motivation and improved ability regarding execution and completion of daily tasks including self-care. The patient endorsed a plan to avoid all drugs of abuse and follow up with the aftercare recommendations of the treatment team. The patient was evaluated and deemed to be absent credible lethality and had achieved the maximum benefit from an inpatient hospitalization, and so was discharged. Hospital Course Hospital Course During the hospitalization, the patient had routine laboratory studies which were within normal limits except for a few outliers.? Additionally, there was a general medical evaluation which was also within normal limits and revealed no new acute processes.? At the time of discharge, lethality was denied and psychosis was absent at the time of discharge. Mood and anxiety were well managed.? The patient endorsed a plan to avoid all drugs of abuse and follow up with the aftercare recommendations of the treatment team.? The patient was evaluated and deemed to be absent credible lethality and had achieved the maximum benefit from an inpatient hospitalization, and so was discharged. ?Prozac was initiated and titrated up to a dose of 20mg daily and remeron was added to improve appetite and to help with anxiety. Furthermore zyprexa was added adjunctively to treat his depression and insomnia with improved sleep reported and improving mood at the time of discharge. Involuntary Hold Information 96 Hour Hold: 96 Hour Involuntary Admission: Yes 96 Hour Hold Ending Date: 07/29/23 96 Hour Hold Ending Time: 19:08 Mental Status Exam MSE Comments: This is a underweight -[place] Islander male in hospital scrubs with improved grooming and eye contact today. No abnormal movements except for mild psychomotor retardation. He was cooperative with exam in no acute distress. Speech was normal in productivity and normal in rate and volume. Mood descr ibed as better. His affect was brighter at the time of discharge. Thought process was linear and logical. Thought content: Patient denied suicidal or homicidal ideation, There were no delusions appreciated. He denied auditory or visual hallucinations and did not appear to be responding to internal stimuli. Attention and concentration appeared intact and memory seemed reliable, but none were formally tested. He is alert and oriented to person and place and time. Insight was improving and judgment appeared better. Impulse control appears to be better. Discharge Data Studies Completed and Pending: Laboratory Results WBC 6.74 10^3/uL (3.2 9-11.43) 07/25/23 19: RBC 5.34 10^6/uL (3.8 5-5.65) 07/25/23 19: Hgb 16.40 g/dL (11.27 -16.99) 07/25/23 19: Hct 47.1 % (37-53) 07/25/23 19: MCV 88.2 fl (82-101) 07/25/23 19: MCH 30.7 pg (27-33) 07/25/23 19: MCHC 34.8 g/dL (30-55) 07/25/23 19: RDW 12.1 % (12.1-15.1 ) 07/25/23: Plt Count 187 10^3/cmm (157 -399) 07/25/23 19: MPV 9.0 fL (7.4-10.4) 07/25/23 19: Neut % (Auto) 52.3 % 07/25/23 19: Lymph % (Auto) 33.4 % 07/25/23 19: [place] % (Auto) 7.4 % 07/25/23 19: Eos % (Auto) 6.2 % 07/25/23: Baso % (Auto) 0.6 % 07/25/23: Neut # (Auto) 3.52 10^3/uL (1.8 -7.7) 07/25/23 19: Lymph # (Auto) 2.3 10^3/uL (0.8- 4.8) 07/25/23 19: [place] # (Auto) 0.5 10^3/uL (0.2- 0.9) 07/25/23 19: Eos # (Auto) 0.4 10^3/uL (0.0- 0.8) 07/25/23: Baso # (Auto) 0.0 10^3/uL (0.0- 0.1) 07/25/23 19: Nucleated RBC % (a uto) 0 % 07/25/23: Nucleated RBCs # 0.0 /100WBC 07/25/23 19: Sodium 143 mmol/L (136-1 45) 07/25/23 19:33 Potassium 4.3 mmol/L (3.5-5 .1) 07/25/23 19:33 Chloride 104 mmol/L (98-10 7) 07/25/23 19:33 Carbon Dioxide 25 mmol/L (22-29) 07/25/23 19:33 Anion Gap 18.3 (5-19) 07/25/23 19:33 BUN 10 mg/dL (6-20) 07/25/23 19:33 Creatinine 0.7 mg/dL (0.7-1. 2) 07/25/23 19:33 GFR Calculation 166.3 mL/min (90- 130) H 07/25/23 19:33 Glucose 126 mg/dL (65-115 ) H 07/25/23 19:33 Calculated Osmolal ity 297 mOsm/kg (285- 295) H 07/25/23 19:33 Calcium 9.7 mg/dL (8.5-10 .5) 07/25/23 19:33 Total Bilirubin 0.6 mg/dL (0.15-1 .2) 07/25/23 19:33 AST 29 U/L (0-40) 07/25/23 19:33 ALT 39 U/L (0-41) 07/25/23 19:33 Alkaline Phosphata se 105 U/L (40-130) 07/25/23 19:33 Total Protein 8.3 g/dL (6.6-8.7 ) 07/25/23 19:33 Albumin 5.2 g/dL (3.5-5.2 ) 07/25/23 19:33 Globulin 3.1 g/dL (1.3-4.6 ) 07/25/23 19:33 Salicylates 0.5 mg/dL (3-10) L 07/25/23 19:33 Urine Opiates Scre en Negative ng/mL (N egative) 07/25/23 19:34 Acetaminophen < 5.0 ug/mL (10-3 0) L 07/25/23 19:33 Ur Barbiturates Sc reen Negative ng/mL (N egative) 07/25/23 19:34 Ur Phencyclidine S crn Negative ng/mL (N egative) 07/25/23 19:34 Ur Amphetamines Sc reen Negative ng/mL (N egative) 07/25/23 19:34 U Benzodiazepines Scrn Negative ng/mL (N egative) 07/25/23 19:34 Urine Cocaine Scre en Negative ng/mL (N egative) 07/25/23 19:34 U Marijuana (THC) Screen Positive ng/mL (N egative) H 07/25/23 19:34 Ethyl Alcohol < 10 mg/dL (0-10) 07/25/23 19:33 Vitals: Last Vital Signs Temp 98.0 F 08/02/23 06:00 Pulse 103 H 08/02/23 06:00 Resp 17 08/02/23 06:00 BP 129/94 08/02/23 06:00 Pulse Ox 99 08/02/23 06:00 O2 Del Method Room Air 08/02/23 06:00 Discharge Plan Discharge Patient Disposition: Home Condition: Stable Prescriptions: New olanzapine 5 mg Tablet 2.5 mg PO BEDTIME 30 Days Qty: 15 1RF mirtazapine 15 mg Tablet 15 mg PO BEDTIME 30 Days Qty: 30 1RF fluoxetine 20 mg Capsule 20 mg PO DAILY 30 Days Qty: 30 1RF Discharge Orders: Discharge Order (Routine); Ordered 08/02/23 Ordered By: Bg Huizar Referrals: [facility]Alexus Nichols LCSW [Other] - 08/03/23 2:30 pm [facility] [Outside] - 08/08/23 8:30 am (Initial appointment 08/08/23 check in 8:30 am with sushma) Remi Torres MD [Physician] - 08/09/23 9:30 am (Follow up.) Discharge Diet: Usual diet Discharge Activity: Resume usual activity Patient Instructions: Depression, Olanzapine (By mouth) (Zyprexa, Zyprexa Zydis), Mirtazapine (By mouth) (Remeron, Remeron Soltab), Depression (GEN), Op ioid Safety Discharge Attestations NPU Time Spent in Discharge Care*: less than 30 min Specific Discharge Activities: Specific discharge activities: educating patient, discussing with pillowcase folder/social workers/dc planners and documenting/other paperwork Coding Level of Care Code Acute Code for [facility] Fwd Diagnoses Psychosis F29 Schizophreniform disorder F20.81 Depression F32.A
[2023-08-02 14:00] VITALS: BP 127/91; PULSE 96; RESP 16; TEMP 36.9; O2SAT 100
[2023-08-02 14:07] VITALS: BP 127/91; PULSE 96; RESP 16; TEMP 36.9; O2SAT 100
== END 2023-08-02 15:43 | disposition home or self-care (01) | DRG 881 ==
LOC: ER 20:00 → NP 20:27
PROVIDERS: Admitting Provider Psychiatry & Neurology Psychiatry; Emergency Provider Emergency Medicine; Visit Provider Psychiatry & Neurology Psychiatry
DX: F32.A Depression, unspecified (principal); F20.81 Schizophreniform disorder; R45.851 Suicidal ideations; F29 Unspecified psychosis not due to a substance or known physiological condition
CPT/HCPCS: 36415; 80053; 80306; 80307; 85025; 97150; 97165; 99285

== ENCOUNTER 2024-10-21 14:39 | Emergency (ER) | payer MEDICAID, SELFPAY ==
[2024-10-21 14:43] VITALS: BP 116/76; PULSE 64; TEMP 36.9; O2SAT 100; BMI 14.9
--- NOTE | 2024-10-21 14:45 | XRR_ITS ---
PROCEDURE INFORMATION: Exam: XR Right Hand Exam date and time: 10/21/2024 3:01 PM Age: 24 years old Clinical indication: Pain; Swelling; Hand; Right; Additional info: Pain, edema TECHNIQUE: Imaging protocol: Radiologic exam of the right hand. Views: 3 or more views. COMPARISON: No relevant prior studies available. FINDINGS: Bones/joints: There is a nondisplaced fracture of the neck of the 5th metacarpal. The hand is otherwise unremarkable. Soft tissues: Normal. XR/XR hand RT min 3V* [id number] IMPRESSION: Fifth metacarpal neck fracture.
--- NOTE | 2024-10-21 15:15 | ED_ITS ---
HPI - Extremity Problem General: Chief complaint: Extremity Injury, Upper Stated complaint: R hand pain, swelling Time Seen by Provider: 10/21/24 15:00 History of Present Illness: Patient is a 24-year-old male that hit a wall just prior to arrival and complains of right hand pain. He complains of pain in his fifth metacarpal distally. There is a raised area at point of complaint. No self treatment prior to arrival. No nausea, vomiting. Associated symptoms: Deny chest pain, fever(s) or rash Related Data Previous Rx's ?Medication ?Instructions ?Recorded fluoxetine 40 mg capsule 40 mg PO DAILY 30 days #30 c aps 08/09/23 mirtazapine 15 mg tablet 15 mg PO BEDTIME 30 days #30 tabs 08/09/23 olanzapine 5 mg tablet 5 mg PO BEDTIME 30 days #30 tabs 08/09/23 tizanidine 2 mg capsule 2 mg PO Q8H PRN muscle spast icity 10/21/24 #20 caps Allergies Allergy/AdvReac Type Severity Reaction Status Date / Time No Known Allergies Allergy Verified 10/21/24 14:47 Review of Systems General: Reports: 10 or more systems reviewed and unremarkable except in HPI and below Const: Denies: fever(s) or chills Eyes: Denies: change in vision or blurry vision ENMT: Denies: throat pain or mouth pain Card: Denies: chest pain or palpitations Resp: Denies: dyspnea or non-productive cough GI: Denies: abdominal pain, nausea, vomiting, change in bowel habits or pain on defecation : Denies: flank pain or difficulty urinating Musc: Reports: extremity pain, joint pain and joint swelling; Denies: neck pain, back pain, joint redness or joint warmth Skin/Breast: Denies: rash or pruritus Neuro: Denies: headache(s), numbness in extremities or lack of coordination PFSH ED PFSH: Medical History (Updated 10/21/24 @ 15:52 by YASMEEN Dumont) Schizophreniform disorder Moderate major depression Family History Grandfather Dementia Social History (Updated 08/09/23 @ 09:26 by Sindi Quick MA) Smoking and tobacco/nicotine status: current every day tobacco/nicotine user e- cigarettes E-Cigarette Details: vaporizer device, with nicotine and without nicotine Alcohol intake: never Substance/Drug Use: never Adopted: No service: No Current occupational exposures/hazards: No Current gender identity: Male Physical Exam Const: COMMON NORMALS: no acute distress, average body habitus and patient oriented x3 GENERAL APPEARANCE: cooperative HENMT: COMMON NORMALS: normocephalic and atraumatic HEAD & SCALP: normocephalic and atraumatic Lymph: LYMPHATIC: no lymphadenopathy noted Chest: COMMONS NORMALS: normal inspection of the chest Resp: COMMON NORMALS: normal respiratory effort, No retractions and clear to auscultation bilaterally AUSCULTATION: clear to auscultation bilaterally Cardio: COMMON NORMALS: regular rate and regular rhythm RATE: regular rate RHYTHM: regular rhythm GI: COMMON NORMALS: Normal to inspection, nondistended, normoactive bowel sounds present, Soft to palpation and non-tender PALPATION: Yes Soft to palpation : COMMON NORMALS: Yes no CVA tenderness BLADDER/KIDNEY EXAM: Yes no CVA tenderness Back/Pelvis: COMMON NORMALS: no CVA tenderness Extremity: COMMON NORMALS: capillary refill normal RIGHT UPPER EXTREMITY: Yes hand & digits Right hand and digits: Yes inspection (Local swelling to distal fifth metacarpal right hand), Yes palpation (Pain over distal end of fifth metacarpal) and Yes ROM exam (Decreased due to pain) Neuro: COMMON NORMALS: patient oriented x3 Psych: COMMON NORMALS: mental status grossly normal, Normal thought process present and speech normal ATTITUDE: Yes calm ACTIVITY/MOTOR BEHAVIOR: Yes appropriate eye contact SPEECH: Yes normal speech THOUGHT PROCESS: Normal thought process present Course Vital Signs: Vital signs: Vital Signs Temperature 98.4 F 10/21/24 14:43 Pulse Rate 67 10/21/24 16:38 Blood Pressure 102/66 10/21/24 16:38 Pulse Oximetry 95 10/21/24 16:38 Oxygen Delivery Me thod Room Air 10/21/24 14:43 MDM - Extremity (Nontraumatic) Medical Decision Making Patient punched a wall just prior to arrival. He has pain in distal fifth metacarpal on his right hand. Suspected boxer's fracture, exactly where the abnormality is, on the distal right metacarpal head there is a fracture seen. Will send him to orthopedics for follow-up, placed him in a gutter splint, and utilize Tylenol and ibuprofen for pain. Patient is acceptable to plan of care Lab Data Radiology Impressions Hand X-Ray 10/21/24 14:45 IMPRESSION: Fifth metacarpal neck fracture. XR interpretation done by ED provider, pending radiology final review ED provider radiology interpretation(s): right hand 5th distal metacarpal head fracture Discharge Plan Discharge Patient Disposition: Home Clinical Impression: Closed boxer's fracture Condition: Stable Prescriptions: New tizanidine 2 mg capsule 2 mg PO Q8H PRN (Reason: muscle spasticity) Qty: 20 0RF No Action fluoxetine 40 mg capsule 40 mg PO DAILY 30 Days Qty: 30 1RF mirtazapine 15 mg tablet 15 mg PO BEDTIME 30 Days Qty: 30 1RF olanzapine 5 mg tablet 5 mg PO BEDTIME 30 Days Qty: 30 1RF Discharge Orders: Discharge ED (Routine); Ordered 10/21/24 Ordered By: Breanna Andrade Referrals: Jayson Pace DO [Physician, Orthopedics] Discharge Diet: Usual diet Discharge Activity: Limit activity as instructed Patient Instructions: Boxer Fracture (ED), Patient Portal & Javier Instructions Activity Restrictions/Additional Instructions: Follow-up with orthopedist. Call tomorrow for an appointment next week. Nonweightbearing to right upper extremity. No swimming, showering without wrapping the splint area until follow-up from orthopedist, and further information. Tylenol, Ibuprofen for pain Return to ED for worsening pain, discomfort, fever, worsening edema. 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
[2024-10-21] MEDS: ketorolac 30 mg/mL INJ 60 MG IM (16:03)
[2024-10-21] MEDS: orphenadrine 30 mg/mL Inj 2 mL 60 MG IM (16:04)
[2024-10-21 16:38] VITALS: BP 102/66; PULSE 67; O2SAT 95
== END 2024-10-21 16:40 | disposition home or self-care (01) ==
PROVIDERS: Emergency Provider Physician Assistant
DX: S62.336A Displaced fracture of neck of fifth metacarpal bone, right hand, initial encounter for closed fracture (principal); X58.XXXA Exposure to other specified factors, initial encounter; F17.290 Nicotine dependence, other tobacco product, uncomplicated
CPT/HCPCS: 29125; 73130; 96372; 99284; J1885; J2360

== ENCOUNTER 2024-11-01 19:18 | Emergency (ER) | payer MEDICAID, SELFPAY ==
[2024-11-01 19:19] VITALS: BP 157/98; PULSE 82; RESP 16; TEMP 36.9; O2SAT 98; BMI 14.1
[2024-11-01 22:40] LABS: Hematocrit 47.3 % (37-53); Hemoglobin 16.80 g/dL (11.27-16.99); Mean Corpuscular HGB Conc 35.5 g/dL (30-55); Mean Corpuscular Hemoglobin 30.8 pg (27-33); Mean Corpuscular Volume 86.8 fl (82-101); Nucleated Red Blood Cells % 0 %; Platelet Count 229 10^3/cmm (157-399); Red Blood Count 5.45 10^6/uL (3.85-5.65); White Blood Count 8.27 10^3/uL (3.29-11.43)
[2024-11-01 22:58] LABS: Alanine Aminotransferase 16 U/L (0-41); Albumin Level 5.1 g/dL (3.5-5.2); Alkaline Phosphatase 94 U/L (40-130); Anion Gap 18.1 (5-19); Aspartate Amino Transferase 17 U/L (0-40); Blood Urea Nitrogen 13 mg/dL (6-20); Calcium 10.2 mg/dL (8.5-10.5); Carbon Dioxide 25 mmol/L (22-29); Chloride 101 mmol/L (98-107); Creatinine Clr Calc Pharmacy 93.3652; Globulin 3.2 g/dL (1.3-4.6); Glucose 94 mg/dL (65-115); Osmolality Calculated 290 mOsm/kg (285-295); Potassium 4.1 mmol/L (3.5-5.1); Sodium 140 mmol/L (136-145); Total Protein 8.3 g/dL (6.6-8.7)
== END 2024-11-02 00:09 | disposition left against medical advice (07) ==
PROVIDERS: Family Medicine; Emergency Provider Family Medicine
DX: Z53.21 Procedure and treatment not carried out due to patient leaving prior to being seen by health care provider (principal)
CPT/HCPCS: 36415; 80053; 85025

== ENCOUNTER 2024-11-02 13:24 | Emergency (ER) | payer OTHER, MEDICAID, SELFPAY ==
[2024-11-02 13:26] VITALS: BP 124/85; PULSE 77; RESP 16; TEMP 36.9; O2SAT 98; BMI 14.2
--- NOTE | 2024-11-02 13:38 | W.ED.ABDPA2 ---
HPI - Abdominal Pain General: Chief Complaint: Abdominal Pain Stated Complaint: abdominal pain Time Seen by Provider: 11/02/24 13:36 History of Present Illness: 24-year-old male presents emergency room with complaints of epigastric pain worse when he eats. This been going on for a couple of years gets generalized abdominal pain and nausea does not matter what he eats he has noticed anything that makes it better. No previous abdominal surgeries no medic easy melena hematemesis coffee-ground emesis has not tried any xigv-ccr-liratek medications. Associated Symptoms: Reports nausea; Denies chills, dysuria and fever(s) Related Data Home Medications ?Medication ?Instructions ?Recorded ?Confirmed ondansetron HCl 4 mg tablet 4 mg PO Q6H PRN Nausea And Vomiting 11/02/24 11/08/24 Previous Rx's ?Medication ?Instructions ?Recorded pantoprazole 40 mg tablet,delayed 40 mg PO DAILY #40 tabs 11/02/24 release tramadol 50 mg tablet 50 mg PO Q6H PRN pain #20 tabs 11/12/24 Allergies Allergy/AdvReac Type Severity Reaction Status Date / Time No Known Allergies Allergy Verified 11/12/24 09:32 Review of Systems Const: Denies: fever(s) or chills Card: Denies: chest pain Resp: Denies: dyspnea GI: Reports: abdominal pain and nausea : Denies: dysuria, urinary frequency or urinary urgency Musc: Denies: neck pain or back pain Skin/Breast: Denies: rash PFSH ED PFSH: Medical History Schizophreniform disorder Moderate major depression Family History Grandfather Dementia Social History Smoking and tobacco/nicotine status: current every day tobacco/nicotine user e-cigarettes E-Cigarette Details: vaporizer device, with nicotine and without nicotine Alcohol intake: never Substance/Drug Use: never Adopted: No service: No Current occupational exposures/hazards: No Current gender identity: Male Physical Exam Const: GENERAL APPEARANCE: cooperative ORIENTATION/CONSCIOUSNESS: Yes awake, Yes oriented to person, Yes oriented to place and Yes oriented to time HENMT: COMMON NORMALS: normocephalic, atraumatic and hearing grossly normal bilaterally HEAD & SCALP: normocephalic and atraumatic Resp: COMMON NORMALS: normal respiratory effort, No retractions, No use of accessory muscles and clear to auscultation bilaterally AUSCULTATION: clear to auscultation bilaterally Cardio: COMMON NORMALS: regular rate, regular rhythm and No murmurs present (Cardio) RATE: regular rate RHYTHM: regular rhythm GI: COMMON NORMALS: Soft to palpation and No hepatosplenomegaly present AUSCULTATION: Yes normoactive bowel sounds PALPATION: Yes Soft to palpation, No Tenderness to palpation present (GI), No Guarding due to palpation present (GI) and Yes No hepatosplenomegaly present Extremity: COMMON NORMALS: normal to inspection, capillary refill normal, no clubbing, cyanosis or edema, no calf tenderness and no pedal edema Neuro: SENSORIUM/ORIENTATION: Yes oriented to person, Yes oriented to place and Yes oriented to time Skin: COMMON NORMALS: no rashes or lesions noted GENERAL SKIN EXAM: no rashes or lesions noted Course Vital Signs: Vital signs: Vital Signs Temperature 98.4 F 11/02/24 13:26 Pulse Rate 88 11/02/24 15:31 Respiratory Rate 16 11/02/24 13:26 Blood Pressure 121/77 11/02/24 15:31 Pulse Oximetry 96 11/02/24 15:31 Oxygen Delivery Me thod Room Air 11/02/24 13:26 MDM - Abdominal Pain Medical Decision Making Labs reviewed no sign of acute upper GI bleed. Start pantoprazole. Discussed dietary adjustments. Follow-up with primary care return if symptoms worsen Medical Records I reviewed the patient's medical records. Lab Data I reviewed the patient's lab results. 11/02/24 13:45 11/02/24 13:45 Labs/Radiology: Laboratory Results WBC 5.17 10^3/uL (3.29-11.43) 11/02/24 13:45 RBC 5.29 10^6/uL (3.85-5.65) 11/02/24 13:45 Hgb 16.20 g/dL (11.27-16.99) 11/02/24 13:45 Hct 46.5 % (37-53) 11/02/24 13:45 MCV 87.9 fl (82-101) 11/02/24 13:45 MCH 30.6 pg (27-33) 11/02/24 13:45 MCHC 34.8 g/dL (30-55) 11/02/24 13:45 RDW 12.2 % (12.1-15.1) 11/02/24 13:45 Plt Count 214 10^3/cmm (157-399) 11/02/24 13:45 MPV 9.8 fL (7.4-10.4) 11/02/24 13:45 Neut % (Auto) 54.9 % 11/02/24 13:45 Lymph % (Auto) 34.2 % 11/02/24 13:45 [place] % (Auto) 9.7 % 11/02/24 13:45 Eos % (Auto) 0.6 % 11/02/24 13:45 Baso % (Auto) 0.4 % 11/02/24 13:45 Neut # (Auto) 2.84 10^3/uL (1.8-7.7) 11/02/24 13:45 Lymph # (Auto) 1.8 10^3/uL (0.8-4.8) 11/02/24 13:45 [place] # (Auto) 0.5 10^3/uL (0.2-0.9) 11/02/24 13:45 Eos # (Auto) 0.0 10^3/uL (0.0-0.8) 11/02/24 13:45 Baso # (Auto) 0.0 10^3/uL (0.0-0.1) 11/02/24 13:45 Nucleated RBC % (auto) 0 % 11/02/24 13:45 Nucleated RBCs # 0.0 /100WBC 11/02/24 13:45 Sodium 133 mmol/L (136-145) L 11/02/24 13:45 Potassium 4.3 mmol/L (3.5-5.1) 11/02/24 13:45 Chloride 100 mmol/L (98-107) 11/02/24 13:45 Carbon Dioxide 20 mmol/L (22-29) L 11/02/24 13:45 Anion Gap 17.3 (5-19) 11/02/24 13:45 BUN 15 mg/dL (6-20) 11/02/24 13:45 Creatinine 0.7 mg/dL (0.7-1.2) 11/02/24 13:45 GFR Calculation 164.9 mL/min (90-130) H 11/02/24 13:45 Glucose 104 mg/dL (65-115) 11/02/24 13:45 Calculated Osmolality 277 mOsm/kg (285-295) L 11/02/24 13:45 Calcium 9.6 mg/dL (8.5-10.5) 11/02/24 13:45 Total Bilirubin 0.6 mg/dL (0.15-1.2) 11/02/24 13:45 AST 19 U/L (0-40) 11/02/24 13:45 ALT 15 U/L (0-41) 11/02/24 13:45 Alkaline Phosphatase 94 U/L (40-130) 11/02/24 13:45 Total Protein 7.6 g/dL (6.6-8.7) 11/02/24 13:45 Albumin 4.4 g/dL (3.5-5.2) 11/02/24 13:45 Globulin 3.2 g/dL (1.3-4.6) 11/02/24 13:45 Lipase 21 U/L (13-60) 11/02/24 13:45 Urine Color Yellow (Yellow) 11/02/24 13:54 Urine Appearance Cloudy (CLEAR) A 11/02/24 13:54 Urine pH 7.0 (5-7) 11/02/24 13:54 Ur Specific [place] 1.008 (1.005-1.030) 11/02/24 13:54 Urine Protein Negative (Negative) 11/02/24 13:54 Urine Glucose (UA) Negative (Normal) 11/02/24 13:54 Urine Ketones Negative (Negative) 11/02/24 13:54 Urine Blood Negative (Negative) 11/02/24 13:54 Urine Nitrate Negative (Negative) 11/02/24 13:54 Urine Bilirubin Negative (Negative) 11/02/24 13:54 Urine Urobilinogen 0.2 mg/dL (Negative) 11/02/24 13:54 Ur Leukocyte Esterase Negative (Negative) 11/02/24 13:54 Urine RBC 0-2 /hpf (0-2) 11/02/24 13:54 Urine WBC 0-5 /hpf (0-5) 11/02/24 13:54 Ur Squamous Epith Cells 0-5 /hpf (0-5) 11/02/24 13:54 Amorphous Sediment Not Reportable 11/02/24 13:54 Urine Bacteria None seen /hpf (NONE) 11/02/24 13:54 Hyaline Casts 0-4 /lpf H 11/02/24 13:54 No radiology studies performed this visit Discharge Plan Discharge Patient Disposition: Home Clinical Impression: Dyspepsia Condition: Stable Prescriptions: New pantoprazole 40 mg tablet,delayed release (DR/EC) 40 mg PO DAILY Qty: 40 0RF Rx Instructions: 1 p.o. twice daily x 10 days then 1 p.o. daily No Action ondansetron HCl 4 mg Tablet 4 mg PO Q6H PRN (Reason: Nausea And Vomiting) tramadol 50 mg tablet 50 mg PO Q6H PRN (Reason: pain) Qty: 20 0RF Discharge Orders: Discharge ED (Routine); Ordered 11/02/24 Ordered By: Noe Rogers Discharge Diet: As Directed Discharge Activity: Resume usual activity Patient Instructions: Diet for Stomach Ulcers and Gastritis (ED), GERD (Gastroesophageal Reflux Disease) (ED), Opioid Safety, Pain Management, Patient Portal & Javier Instructions Activity Restrictions/Additional Instructions: Thank you for choosing [facility] for your healthcare needs today. It is very important that you follow up as instructed or that you return to the Emergency Department should you have concerns or if your condition changes or worsens in any way. You were seen emergency room with chronic abdominal pain your laboratory tests were normal your abdominal exam is benign at this time. Recommend that you start on pantoprazole 1 pill twice a day for 10 days then 1 pill daily. Case management make arrangements for you to follow-up with general surgery for possible endoscopy of your stomach. 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
[2024-11-02 13:51] LABS: Hematocrit 46.5 % (37-53); Hemoglobin 16.20 g/dL (11.27-16.99); Mean Corpuscular HGB Conc 34.8 g/dL (30-55); Mean Corpuscular Hemoglobin 30.6 pg (27-33); Mean Corpuscular Volume 87.9 fl (82-101); Nucleated Red Blood Cells % 0 %; Platelet Count 214 10^3/cmm (157-399); Red Blood Count 5.29 10^6/uL (3.85-5.65); White Blood Count 5.17 10^3/uL (3.29-11.43)
[2024-11-02 14:09] LABS: Alanine Aminotransferase 15 U/L (0-41); Albumin Level 4.4 g/dL (3.5-5.2); Alkaline Phosphatase 94 U/L (40-130); Blood Urea Nitrogen 15 mg/dL (6-20); Calcium 9.6 mg/dL (8.5-10.5); Carbon Dioxide 20 mmol/L (22-29); Chloride 100 mmol/L (98-107); Creatinine Clr Calc Pharmacy 107.7277; Globulin 3.2 g/dL (1.3-4.6); Glucose 104 mg/dL (65-115); Lipase 21 U/L (13-60); Osmolality Calculated 277 mOsm/kg (285-295); Sodium 133 mmol/L (136-145); Total Protein 7.6 g/dL (6.6-8.7)
[2024-11-02 14:11] LABS: Anion Gap 17.3 (5-19); Aspartate Amino Transferase 19 U/L (0-40); Potassium 4.3 mmol/L (3.5-5.1)
[2024-11-02 14:59] LABS: Glucose Urine UA Negative (Normal); Nitrate Urine Negative (Negative); Specific Gravity, Urine 1.008 (1.005-1.030)
[2024-11-02 15:02] LABS: Add Urine Microscopic? YES
[2024-11-02 15:31] VITALS: BP 121/77; PULSE 88; O2SAT 96
== END 2024-11-02 18:05 | disposition home or self-care (01) ==
PROVIDERS: Emergency Provider Family Medicine
DX: R10.13 Epigastric pain (principal); F17.290 Nicotine dependence, other tobacco product, uncomplicated
CPT/HCPCS: 36415; 80053; 81001; 83690; 85025; 99283

== ENCOUNTER → 2024-11-06 14:43 | Outpatient (BNVA) | payer OTHER, MEDICAID, SELFPAY | PROVIDERS: Visit Provider Physician Assistant | DX: S62.306A Unspecified fracture of fifth metacarpal bone, right hand, initial encounter for closed fracture (principal); W22.09XA Striking against other stationary object, initial encounter | CPT/HCPCS: 73130 ==

== ENCOUNTER 2024-11-12 09:00 | Day surgery (SDC) | payer OTHER, MEDICAID, SELFPAY ==
[2024-11-12] VITALS (10 sets, daily range): BP systolic 90–114; BP diastolic 45–85; PULSE 67–86; RESP 15–22; TEMP 36.1–36.6; O2SAT 98–100; BMI 14.9
--- NOTE | 2024-11-12 | XR_ITS ---
WS: [id number] C-ARM RADIOGRAPHS HAND; no lateralization marker. 5 IMAGES HISTORY: right hand Fifth metacarpal ORIF COMPARISON: 11/06/2024 Screw is been placed across the previously described fracture involving the metadiaphysis of the fifth metacarpal. Good alignment. XR/XR hand RT min 3V* [id number] IMPRESSION: Intraoperative imaging during screw stabilization fracture fifth metacarpal.
--- NOTE | 2024-11-12 09:25 | SC_ITS ---
WS: [id number] C-ARM RADIOGRAPHS HAND; no lateralization marker. 5 IMAGES HISTORY: right hand Fifth metacarpal ORIF COMPARISON: 11/06/2024 Screw is been placed across the previously described fracture involving the metadiaphysis of the fifth metacarpal. Good alignment.
--- NOTE | 2024-11-12 09:45 | ANES.PREANE2 ---
Pre-Anesthetic Assessment Height/Weight: Height 1.83 m Operation Date: 11/12/24 10:10 Proposed Procedures p RIGHT Fifth ORIF Metacarpal(Right) - Jayson Pace DO Familial anesthetic complications: None Was Beta Debbie taken within 24 hours: N/A Was Clonidine taken within 24 hours: N/A Last intake: > 8 hrs Social No alcohol and No tobacco Exam alert, oriented x 3, clear to auscultation bilaterally and regular rate & rhythm Airway Mallampati: Class I GI Gastroesophageal Reflux Disease (not actively experiencing right now) Anesthetic Plan ASA status: 2 Anesthesia: General Risk of > 500 ml blood loss (7ml/kg in children): No Medications/Allergies Home Medications ?Medication ?Instructions ?Recorded ?Confirmed ?Last Taken ?Type ondansetron HCl 4 mg tablet 4 mg PO Q6H PRN Nausea And Vomiting 11/02/24 11/08/24 11/02/24 13:00 History pantoprazole 40 mg tablet,delayed 40 mg PO DAILY #40 tabs 11/02/24 11/12/24 11/12/24 Rx release Allergies Allergy/AdvReac Type Severity Reaction Status Date / Time No Known Allergies Allergy Verified 11/12/24 09:32 [facility] Anesthesia Medical History (Updated 11/10/24 @ 00:00 by RIAN [place]) Schizophreniform disorder Moderate major depression Family History Grandfather Dementia Social History Smoking and tobacco/nicotine status: current every day tobacco/nicotine user e-cigarettes E-Cigarette Details: vaporizer device, with nicotine and without nicotine Alcohol intake: never Substance/Drug Use: never Adopted: No service: No Current occupational exposures/hazards: No Current gender identity: Male
--- NOTE | 2024-11-12 10:11 | W.PM.OPSUD ---
Surgery/Procedure H&P Update DATE OF PROCEDURE: November 12, 2024 DATE H&P PERFORMED: 11/06/24 H&P UPDATE INFORMATION: I have reviewed H&P completed within last 30 days, I have examined patient prior to procedure and No changes to prior documentation PREOP DIAGNOSIS: Right fifth metacarpal displaced and angulated PRIMARY INDICATION FOR PROCEDURE: Right fifth metacarpal displaced and angulated PLANNED PROCEDURE: Operation Date: 11/12/24 10:10 Proposed Procedures p RIGHT Fifth ORIF Metacarpal(Right) - Jayson Pace DO
[2024-11-12] MEDS: acetaminophen 1,000 MG/100 ML PIGGYBACK 400 MG IV (10:15)
[2024-11-12] MEDS: ceFAZolin 2,000 MG in sodium chloride 0.9% (plus) 50 ML 100 MG IV (10:22)
[2024-11-12] MEDS: BUPivacaine 0.5% INJ 10 mL INJECTION (11:35)
[2024-11-12] MEDS: ROPivacaine 0.5% SDV 30 mL 150 MG INJECTION (11:35)
--- NOTE | 2024-11-12 11:38 | P.BOP_ITS ---
Date of Procedure: 11/12/2024 Surgeon: Jayson Pace DO Casting Repairer(s): Vinicio Pace PA-C Procedure(s) performed: Right fifth metacarpal neck fracture open reduction internal fixation with headless compression screw Findings of the procedure(s): Procedure went as planned without issues or complications Estimated blood loss: 3 mL Specimen(s) removed: None Post-operative diagnosis: Right fifth metacarpal neck fracture displaced and angulated
--- NOTE | 2024-11-12 11:41 | PM.OP ---
Operative Report Date of procedure: November 12, 2024 Surgeon: Jayson Pace DO [employer] Sales Specialist: Vinicio Pace PA-C: PA was necessary for assistance in this case with hand positioning to execute the procedure, retraction and protection of neurovascular structures as well as to assist with fracture reduction and fixation with wound closure and dressing application. Procedure: Preop Diagnosis ?Displaced/angulated right fifth?metacarpal?neck fracture? Post-op diagnosis: Same Post-op findings: See procedure note Procedure done: Right fifth?metacarpal?neck fracture open reduction internal fixation with intramedullary headless compression screw Implants: Arthrex 2.5 mm by 36 mm fully threaded headless compression screw Specimens removed/disposition: None Estimated blood loss (mL): 3 cc Tourniquet time 30 minutes IV fluids: See anesthesia record Complications: None Findings: See op note Brief History: pt was seen in my office and sustained a right fifth?metacarpal?fracture splinted sent to orthopedic office.? Patient does have remote history of right fifth metacarpal fracture previously as well. Patient has significant angulation deformity that is progressed and now greater than greater than 70 degrees of volar angulation progressively showing more angulation. Given the progression of the fracture in relation. We had detailed discussion with him as well as his family in the office about these findings and recommendations of nonoperative versus operative intervention.? Given deformity and young age recommend surgical intervention.? Through shared decision making patient and family elect to proceed. Detail the risk benefits complications alternatives to surgery.? Risks include but are not limited to make it better or make it worse malunion nonunion loss of function of the hand, injury to extensor tendon mechanism, injury to nerves or vessels, infection.? Understanding these risks he elects to proceed with surgical intervention.? Consent was obtained in preoperative holding area for right fifth metacarpal fracture open reduction internal fixation. All questions answered at this time. Procedure: Patient seen the preoperative holding area.? Consent was finalized and reviewed with patient as well as family in preop holding area confirming correct patient correct site of surgery and correct surgery procedure.? Patient was then evaluated by the anesthesia department.? Taken to the OR suite and placed on the OR table with a hand table to the right upper extremity all bony prominences well-padded patient was secured to the bed.? Patient then underwent anesthesia per the anesthesia department.? Nonsterile tourniquet applied to the right upper extremity.? Right upper extremity was then prepped and draped in standard orthopedic fashion.? Final timeout performed. Right upper extremity was elevated tourniquet inflated C-arm was brought in to evaluate the fracture confirming right fifth?metacarpal?neck displaced and angulated fracture. Again continued displacement was appreciated roughly now down to about 90 degrees of volar angulation. Patient did have some what appeared to be previous fracture remodeling noted at the site. I was able to perform a standard reduction maneuver and was able to achieve reduction and hold this with manual manipulation. Once this was reduction was maintained I then held this reduction manually and proceeded with fixation. This point I inserted my guidewire from a headless compression screw at the dorsal third of the?metacarpal?head to be an appropriate line with the shaft.? Once this was advanced and confirmed appropriate starting position orthogonal views with C arm it was then advanced a reduction maneuver was made closed at the fracture site and the guidewire was then advanced past the fracture into the proximal fragment and then secured into the hamate across the fifth CMC joint.? Once we confirmed appropriate reduction as well as guidepin? being intramedullary we then used the cannulated drill for the 3.5mm screw which was then advanced drilled just past the fracture site.? Next I selected a appropriate length screw 3.5 mm x 36 mm Arthrex headless compression fully threaded screw this was then held up to the?metacarpal?to determine that it would be appropriate length with C arm.? Once this was confirmed this was the appropriate length I then utilized hand screwdriver and advance this which had excellent fracture site compression as well as maintenance of reduction.? Once this was advanced to appropriate depth being subchondral. I did extend the incision small just to the subcutaneous tissue and came down directly over the site to visualize no prominence of the headless compression screw this was all within the subchondral bone with no prominence of the screw. The guidepin was then removed.? Finger was taken through range of motion which had smooth range of motion no clicking and appropriate cascade with good alignment and no evidence of malrotation. Final x-rays AP oblique and lateral confirmed stable reduction and fixation with headless compression screw.? I then took the hand through range of motion identify patient's tenodesis and finger cascade And good alignment.? Tourniquet deflated hemostasis satisfactory thorough irrigation performed. Wound bed was then thoroughly irrigated and the deep capsular tissue was then sutured closed with 4-0 Monocryl suture in interrupted fashion.? Interrupted nylon suture for skin.? Steri-Strips applied.? Tourniquet was then deflated hemostasis adequate.? Local injection of lidocaine and ropivacaine was then injected around the fracture site as well as incision.?Dressing applied of 4 x 4's Curlex and a ulnar gutter splint with Maximo wrap.? Patient was then awakened from anesthesia and taken to PACU in stable condition. Disposition: Patient be nonweightbearing right upper extremity maintain splint till follow-up.? Patient seen appropriate discharge instruction as well as pain medication.? Follow-up in 2 weeks in Ortho office.
--- NOTE | 2024-11-12 11:52 | PM.PACU ---
PACU note Narrative: Patient is a 24-year-old male that just underwent a right fifth metacarpal ORIF. Patient transferred to PACU in stable condition. Pain is well controlled. Dressing and splint on hand is dry and in place. Patient's fingers are warm and well-perfused. Patient can wiggle fingers. normal cap refill under 2 seconds. Patient has normal elbow range of motion. Unable to assess sensation due to residual localized anesthetic. Exam: awake Disposition: discharged
--- NOTE | 2024-11-12 13:30 | ANE.PACU2 ---
Inpatient post-anesthesia follow up: Airway intact: Yes Vital signs: Temperature 98 F Pulse Rate 68 Respiratory Rate 17 Blood Pressure 100/45 Pulse Oximetry 100 Oxygen Delivery Me thod Room Air Oxygen Flow Rate 6 Fraction of Inspir ed Oxygen Hydration adequate: Yes Nausea and vomiting: No Pain level: 1 Mental status: Baseline
== END 2024-11-12 13:30 | disposition home or self-care (01) ==
PROVIDERS: Visit Provider Student in an Organized Health Care Education/Training Program
PROC: (CPT 26615; principal; 2024-11-12 10:00)
DX: S62.336A Displaced fracture of neck of fifth metacarpal bone, right hand, initial encounter for closed fracture (principal); W22.01XA Walked into wall, initial encounter; K21.9 Gastro-esophageal reflux disease without esophagitis; F20.81 Schizophreniform disorder; F32.9 Major depressive disorder, single episode, unspecified; F17.290 Nicotine dependence, other tobacco product, uncomplicated
CPT/HCPCS: 26615; 73130; 76000; 77001; C1713; J0131; J0690; J1100; J2250; J2405; J2704; J2795; J3010; J3490; J7030; J9999

== ENCOUNTER → 2024-12-04 15:17 | Outpatient (BNVA) | payer OTHER, MEDICAID, SELFPAY | PROVIDERS: Visit Provider Physician Assistant | DX: S62.306D Unspecified fracture of fifth metacarpal bone, right hand, subsequent encounter for fracture with routine healing (principal); X58.XXXD Exposure to other specified factors, subsequent encounter | CPT/HCPCS: 73130 ==

== ENCOUNTER → 2024-12-18 14:46 | Outpatient (BNVA) | payer OTHER, MEDICAID, SELFPAY | PROVIDERS: Visit Provider Physician Assistant | DX: S62.306A Unspecified fracture of fifth metacarpal bone, right hand, initial encounter for closed fracture (principal); X58.XXXA Exposure to other specified factors, initial encounter | CPT/HCPCS: 73130 ==

== ENCOUNTER → 2025-01-01 14:53 | Outpatient (BNVA) | payer MEDICAID, SELFPAY | PROVIDERS: Visit Provider Physician Assistant | DX: Z98.890 Other specified postprocedural states (principal) | CPT/HCPCS: 73130 ==

== ENCOUNTER → 2025-02-06 11:03 | Outpatient (BNVA) | payer MEDICAID, SELFPAY | PROVIDERS: Visit Provider Physician Assistant | DX: Z98.890 Other specified postprocedural states (principal) | CPT/HCPCS: 73130 ==

== ENCOUNTER 2025-02-17 18:18 | Inpatient (IN) | payer OTHER, MEDICAID, SELFPAY ==
[2025-02-17 18:20] VITALS: BP 148/87; PULSE 88; RESP 14; TEMP 37.3; O2SAT 98; BMI 15.2
--- NOTE | 2025-02-17 18:28 | ECG_ITS ---
[facility] Test Date: 2025-02-17 Pat Name: Isamar Baca Department: Room: Gender: Male Supervisor Inspection: : 2000 Requested By: Breanna Andrade Order Number: [id number] Bejnie MD: ALIE MCDONALD Measurements Intervals [place] Rate: 67 P: 24 WI: 130 QRS: 87 QRSD: 92 T: 74 QT: 358 QTc: 378 Interpretive Statements SINUS RHYTHM MINIMAL ST DEPRESSION [0.025+ mV ST DEPRESSION] No previous ECG available for comparison Electronically Signed On 02-17-2025 22:23:05 CDT by ALIE MCDONALD [email or web address]
--- NOTE | 2025-02-17 18:43 | W.ED.PSYCHS ---
Documented by User: YASMEEN Dumont 02/17/25 20:41 HPI - Psych General: Chief Complaint: Psychiatric Symptoms Stated Complaint: mhe Time Seen by Provider: 02/17/25 18:25 History of Present Illness: Patient is a 24-year-old male that reports to the emergency room for severe depression. He states he does not have a plan to kill himself, or harm himself, or homicide ideation. He states that he is not eating, not drinking, stays in his room all the time, and has severe depression. He is fighting with his mother verbally. 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 He does not feel well, has severe depression, does not want to commit suicide or harm himself, however would like to . Associated symptoms: Reports depression; Deny homicidal ideation or suicidal ideation Related Data Home Medications ?Medication ?Instructions ?Recorded ?Confirmed ondansetron HCl 4 mg tablet 4 mg PO Q6H PRN Nausea And Vomiting 11/02/24 11/08/24 Previous Rx's ?Medication ?Instructions ?Recorded pantoprazole 40 mg tablet,delayed 40 mg PO DAILY #40 tabs 11/02/24 release tramadol 50 mg tablet 50 mg PO Q6H PRN pain #20 tabs 11/12/24 right unlar gutter wrist brace #1 ea 12/04/24 Allergies Allergy/AdvReac Type Severity Reaction Status Date / Time No Known Allergies Allergy Verified 02/06/25 11:34 Review of Systems General: Reports: 10 or more systems reviewed and unremarkable except in HPI and below Const: Denies: fever(s), chills or body aches Card: Denies: chest pain or orthopnea Resp: Denies: dyspnea, productive cough or wheezing GI: Denies: abdominal pain, nausea or vomiting : Denies: flank pain or difficulty urinating Musc: Denies: neck pain or back pain Skin/Breast: Denies: changes in skin color or dry skin Neuro: Denies: numbness in extremities or weakness in extremities Psych: Reports: anxiety and depression; Denies: suicidal ideation or homicidal ideation Jim/Lymph: Denies: easy bruising or easy bleeding [facility] ED PFSH: Medical History (Updated 02/17/25 @ 20:16 by YASMEEN Dumont) Schizophreniform disorder Moderate major depression Family History Grandfather Dementia Social History Smoking and tobacco/nicotine status: current every day tobacco/nicotine user e-cigarettes E-Cigarette Details: vaporizer device, with nicotine and without nicotine Alcohol intake: never Substance/Drug Use: never Adopted: No service: No Current occupational exposures/hazards: No Current gender identity: Male Physical Exam Const: COMMON NORMALS: patient oriented x3 HENMT: COMMON NORMALS: normocephalic, atraumatic and Normal external nose present HEAD & SCALP: normocephalic and atraumatic FACE & SINUS: normal facial exam and sinuses nontender NOSE: Normal external nose present and Normal nares present MOUTH: Normal oral and palatal mucosa present, lip normal and tongue normal Neck/C-Spine: COMMON NORMALS: full ROM, no lymphadenopathy and supple Chest: COMMONS NORMALS: normal inspection of the chest and normal palpation of entire chest wall Resp: COMMON NORMALS: normal respiratory effort, No retractions and No use of accessory muscles Cardio: COMMON NORMALS: regular rate and regular rhythm RATE: regular rate RHYTHM: regular rhythm GI: COMMON NORMALS: Normal to inspection, nondistended, normoactive bowel sounds present, Soft to palpation, non-tender and No hepatosplenomegaly present PALPATION: Yes Soft to palpation and Yes No hepatosplenomegaly present : COMMON NORMALS: Yes no CVA tenderness BLADDER/KIDNEY EXAM: Yes no CVA tenderness Back/Pelvis: COMMON NORMALS: no CVA tenderness Extremity: COMMON NORMALS: normal to inspection, full ROM and capillary refill normal GENERAL: Yes normal exam except as noted Neuro: COMMON NORMALS: patient oriented x3 and CN's II-XII intact bilaterally Psych: COMMON NORMALS: mental status grossly normal, Normal thought process present and cooperative ACTIVITY/MOTOR BEHAVIOR: Yes fidgeting and Yes Avoids eye contact (attititude/behavior) THOUGHT PROCESS: Normal thought process present Skin: COMMON NORMALS: no rashes or lesions noted, no wounds and turgor normal GENERAL SKIN EXAM: no rashes or lesions noted and turgor normal Course Consultations: Consultation #1: Dr. Vasquez accepted the patient to NP[facility]. Vital Signs: Vital signs: Vital Signs Temperature 97.8 F 02/17/25 21:50 Pulse Rate 70 02/17/25 21:50 Respiratory Rate 18 02/17/25 21:50 Blood Pressure 124/81 02/17/25 21:50 Pulse Oximetry 100 02/17/25 21:50 Oxygen Delivery Me thod Room Air 02/17/25 21:50 [facility] - Psych Medical Decision Making Patient is a 24-year-old male that comes in with severe sadness. He denied suicidal ideation or plan. Discussed with psychiatrist. Plan is for admission to psychiatric facility for further evaluation. Medical Records I reviewed the patient's medical records. Lab Data I reviewed the patient's lab results. 02/17/25 18:39 02/17/25 18:39 Laboratory Results WBC 6.23 10^3/uL (3.29-11.43) 02/17/25 18:39 RBC 5.44 10^6/uL (3.85-5.65) 02/17/25 18:39 Hgb 16.30 g/dL (11.27-16.99) 02/17/25 18:39 Hct 48.3 % (37-53) 02/17/25 18:39 MCV 88.8 fl (82-101) 02/17/25 18:39 MCH 30.0 pg (27-33) 02/17/25 18:39 MCHC 33.7 g/dL (30-55) 02/17/25 18:39 RDW 12.2 % (12.1-15.1) 02/17/25 18:39 Plt Count 208 10^3/cmm (157-399) 02/17/25 18:39 MPV 9.6 fL (7.4-10.4) 02/17/25 18:39 Neut % (Auto) 50.5 % 02/17/25 18:39 Lymph % (Auto) 40.0 % 02/17/25 18:39 [place] % (Auto) 8.0 % 02/17/25 18:39 Eos % (Auto) 1.0 % 02/17/25 18:39 Baso % (Auto) 0.3 % 02/17/25 18:39 Neut # (Auto) 3.15 10^3/uL (1.8-7.7) 02/17/25 18:39 Lymph # (Auto) 2.5 10^3/uL (0.8-4.8) 02/17/25 18:39 [place] # (Auto) 0.5 10^3/uL (0.2-0.9) 02/17/25 18:39 Eos # (Auto) 0.1 10^3/uL (0.0-0.8) 02/17/25 18:39 Baso # (Auto) 0.0 10^3/uL (0.0-0.1) 02/17/25 18:39 Nucleated RBC % (auto) 0 % 02/17/25 18:39 Nucleated RBCs # 0.0 /100WBC 02/17/25 18:39 Sodium 140 mmol/L (136-145) 02/17/25 18:39 Potassium 3.7 mmol/L (3.5-5.1) 02/17/25 18:39 Chloride 101 mmol/L (98-107) 02/17/25 18:39 Carbon Dioxide 26 mmol/L (22-29) 02/17/25 18:39 Anion Gap 16.7 (5-19) 02/17/25 18:39 BUN 9 mg/dL (6-20) 02/17/25 18:39 Creatinine 0.7 mg/dL (0.7-1.2) 02/17/25 18:39 GFR Calculation 164.9 mL/min (90-130) H 02/17/25 18:39 Glucose 87 mg/dL (65-115) 02/17/25 18:39 Calculated Osmolality 288 mOsm/kg (285-295) 02/17/25 18:39 Calcium 9.5 mg/dL (8.5-10.5) 02/17/25 18:39 Total Bilirubin 0.6 mg/dL (0.15-1.2) 02/17/25 18:39 AST 15 U/L (0-40) 02/17/25 18:39 ALT 11 U/L (0-41) 02/17/25 18:39 Alkaline Phosphatase 104 U/L (40-130) 02/17/25 18:39 Total Protein 7.7 g/dL (6.6-8.7) 02/17/25 18:39 Albumin 5.0 g/dL (3.5-5.2) 02/17/25 18:39 Globulin 2.7 g/dL (1.3-4.6) 02/17/25 18:39 TSH 0.58 uIU/mL (0.27-4.20) 02/17/25 18:39 Urine Color Yellow (Yellow) 02/17/25 19:28 Urine Appearance Clear (CLEAR) 02/17/25 19:28 Urine pH 6.5 (5-7) 02/17/25 19:28 Ur Specific [place] 1.009 (1.005-1.030) 02/17/25 19:28 Urine Protein Negative (Negative) 02/17/25 19:28 Urine Glucose (UA) Negative (Normal) 02/17/25 19: Urine Ketones Negative (Negative) 02/17/25 19: Urine Blood Negative (Negative) 02/17/25 19: Urine Nitrate Negative (Negative) 02/17/25 19: Urine Bilirubin Negative (Negative) 02/17/25 19: Urine Urobilinogen 1.0 mg/dL (Negative) 02/17/25 19:28 Ur Leukocyte Esterase Negative (Negative) 02/17/25 19:28 Urine RBC 0-2 /hpf (0-2) 02/17/25 19:28 Urine WBC 0-5 /hpf (0-5) 02/17/25 19:28 Ur Squamous Epith Cells 0-5 /hpf (0-5) 02/17/25 19:28 Amorphous Sediment Not Reportable 02/17/25 19:28 Urine Bacteria None seen /hpf (NONE) 02/17/25 19:28 Hyaline Casts 0-4 /lpf H 02/17/25 19:28 Salicylates < 0.3 mg/dL (3-10) L 02/17/25 18:39 Urine Opiates Screen Negative ng/mL (Negative) 02/17/25 19:28 Acetaminophen < 5.0 ug/mL (10-30) L 02/17/25 18:39 Ur Barbiturates Screen Negative ng/mL (Negative) 02/17/25 19:28 Ur Phencyclidine Scrn Negative ng/mL (Negative) 02/17/25 19:28 Ur Amphetamines Screen Negative ng/mL (Negative) 02/17/25 19:28 U Benzodiazepines Scrn Negative ng/mL (Negative) 02/17/25 19:28 Urine Cocaine Screen Negative ng/mL (Negative) 02/17/25 19:28 U Marijuana (THC) Screen Positive ng/mL (Negative) H 02/17/25 19:28 Ethyl Alcohol < 10 mg/dL (0-10) 02/17/25 18:39 No radiology studies performed this visit EKG Data EKG 1: Interpretation: Sinus rhythm, early repolarization, ventricular rate 67, QTc 373, CA 130 Discharge Plan Discharge Patient Disposition: Xfer Psychiatric Hosp Clinical Impression: Severe depression Condition: Stable Discharge Diet: Usual diet Discharge Activity: Resume usual activity Coding Level of Care Code ED Putty Glazer for Chg Fwd Documented by User: Garrison [place] DO 02/18/25 00:08 HPI - Psych General: Chief Complaint: Psychiatric Symptoms Stated Complaint: mhe Time Seen by Provider: 02/17/25 18:25 Related Data Home Medications ?Medication ?Instructions ?Recorded ?Confirmed ondansetron HCl 4 mg tablet 4 mg PO Q6H PRN Nausea And Vomiting 11/02/24 11/08/24 Previous Rx's ?Medication ?Instructions ?Recorded pantoprazole 40 mg tablet,delayed 40 mg PO DAILY #40 tabs 11/02/24 release tramadol 50 mg tablet 50 mg PO Q6H PRN pain #20 tabs 11/12/24 right unlar gutter wrist brace #1 ea 12/04/24 Allergies Allergy/AdvReac Type Severity Reaction Status Date / Time No Known Allergies Allergy Verified 02/06/25 11:34 PFSH ED PFSH: Medical History (Updated 02/17/25 @ 20:16 by YASMEEN Dumont) Schizophreniform disorder Moderate major depression Family History Grandfather Dementia Social History Smoking and tobacco/nicotine status: current every day tobacco/nicotine user e-cigarettes E-Cigarette Details: vaporizer device, with nicotine and without nicotine Alcohol intake: never Substance/Drug Use: never Adopted: No service: No Current occupational exposures/hazards: No Current gender identity: Male Course Vital Signs: Vital signs: Vital Signs Temperature 97.8 F 02/17/25 21:50 Pulse Rate 70 02/17/25 21:50 Respiratory Rate 18 02/17/25 21:50 Blood Pressure 124/81 02/17/25 21:50 Pulse Oximetry 100 02/17/25 21:50 Oxygen Delivery Me thod Room Air 02/17/25 21:50 MDM - Psych Medical Decision Making Patient is a 24-year-old male that comes in with severe sadness. He denied suicidal ideation or plan. Discussed with psychiatrist. Plan is for admission to psychiatric facility for further evaluation. Patient was originally seen by Ms. Lupe PA-C. I agree with her history, evaluation, and treatment. Lab Data 02/17/25 18:39 02/17/25 18:39 Laboratory Results WBC 6.23 10^3/uL (3.29-11.43) 02/17/25 18:39 RBC 5.44 10^6/uL (3.85-5.65) 02/17/25 18:39 Hgb 16.30 g/dL (11.27-16.99) 02/17/25 18:39 Hct 48.3 % (37-53) 02/17/25 18:39 MCV 88.8 fl (82-101) 02/17/25 18:39 MCH 30.0 pg (27-33) 02/17/25 18:39 MCHC 33.7 g/dL (30-55) 02/17/25 18:39 RDW 12.2 % (12.1-15.1) 02/17/25 18:39 Plt Count 208 10^3/cmm (157-399) 02/17/25 18:39 MPV 9.6 fL (7.4-10.4) 02/17/25 18:39 Neut % (Auto) 50.5 % 02/17/25 18:39 Lymph % (Auto) 40.0 % 02/17/25 18:39 [place] % (Auto) 8.0 % 02/17/25 18:39 Eos % (Auto) 1.0 % 02/17/25 18:39 Baso % (Auto) 0.3 % 02/17/25 18:39 Neut # (Auto) 3.15 10^3/uL (1.8-7.7) 02/17/25 18:39 Lymph # (Auto) 2.5 10^3/uL (0.8-4.8) 02/17/25 18:39 [place] # (Auto) 0.5 10^3/uL (0.2-0.9) 02/17/25 18:39 Eos # (Auto) 0.1 10^3/uL (0.0-0.8) 02/17/25 18:39 Baso # (Auto) 0.0 10^3/uL (0.0-0.1) 02/17/25 18:39 Nucleated RBC % (auto) 0 % 02/17/25 18:39 Nucleated RBCs # 0.0 /100WBC 02/17/25 18:39 Sodium 140 mmol/L (136-145) 02/17/25 18:39 Potassium 3.7 mmol/L (3.5-5.1) 02/17/25 18:39 Chloride 101 mmol/L (98-107) 02/17/25 18:39 Carbon Dioxide 26 mmol/L (22-29) 02/17/25 18:39 Anion Gap 16.7 (5-19) 02/17/25 18:39 BUN 9 mg/dL (6-20) 02/17/25 18:39 Creatinine 0.7 mg/dL (0.7-1.2) 02/17/25 18:39 GFR Calculation 164.9 mL/min (90-130) H 02/17/25 18:39 Glucose 87 mg/dL (65-115) 02/17/25 18:39 Calculated Osmolality 288 mOsm/kg (285-295) 02/17/25 18:39 Calcium 9.5 mg/dL (8.5-10.5) 02/17/25 18:39 Total Bilirubin 0.6 mg/dL (0.15-1.2) 02/17/25 18:39 AST 15 U/L (0-40) 02/17/25 18:39 ALT 11 U/L (0-41) 02/17/25 18:39 Alkaline Phosphatase 104 U/L (40-130) 02/17/25 18:39 Total Protein 7.7 g/dL (6.6-8.7) 02/17/25 18:39 Albumin 5.0 g/dL (3.5-5.2) 02/17/25 18:39 Globulin 2.7 g/dL (1.3-4.6) 02/17/25 18:39 TSH 0.58 uIU/mL (0.27-4.20) 02/17/25 18:39 Urine Color Yellow (Yellow) 02/17/25 19:28 Urine Appearance Clear (CLEAR) 02/17/25 19:28 Urine pH 6.5 (5-7) 02/17/25 19:28 Ur Specific [place] 1.009 (1.005-1.030) 02/17/25 19: Urine Protein Negative (Negative) 02/17/25 19:28 Urine Glucose (UA) Negative (Normal) 02/17/25 19:28 Urine Ketones Negative (Negative) 02/17/25 19:28 Urine Blood Negative (Negative) 02/17/25 19:28 Urine Nitrate Negative (Negative) 02/17/25 19:28 Urine Bilirubin Negative (Negative) 02/17/25 19:28 Urine Urobilinogen 1.0 mg/dL (Negative) 02/17/25 19:28 Ur Leukocyte Esterase Negative (Negative) 02/17/25 19:28 Urine RBC 0-2 /hpf (0-2) 02/17/25 19:28 Urine WBC 0-5 /hpf (0-5) 02/17/25 19:28 Ur Squamous Epith Cells 0-5 /hpf (0-5) 02/17/25 19:28 Amorphous Sediment Not Reportable 02/17/25 19:28 Urine Bacteria None seen /hpf (NONE) 02/17/25 19:28 Hyaline Casts 0-4 /lpf H 02/17/25 19:28 Salicylates < 0.3 mg/dL (3-10) L 02/17/25 18:39 Urine Opiates Screen Negative ng/mL (Negative) 02/17/25 19:28 Acetaminophen < 5.0 ug/mL (10-30) L 02/17/25 18:39 Ur Barbiturates Screen Negative ng/mL (Negative) 02/17/25 19:28 Ur Phencyclidine Scrn Negative ng/mL (Negative) 02/17/25 19:28 Ur Amphetamines Screen Negative ng/mL (Negative) 02/17/25 19:28 U Benzodiazepines Scrn Negative ng/mL (Negative) 02/17/25 19:28 Urine Cocaine Screen Negative ng/mL (Negative) 02/17/25 19:28 U Marijuana (THC) Screen Positive ng/mL (Negative) H 02/17/25 19:28 Ethyl Alcohol < 10 mg/dL (0-10) 02/17/25 18:39 Discharge Plan Discharge Patient Disposition: Xfer Psychiatric Hosp Clinical Impression: Severe depression Condition: Stable Discharge Diet: Usual diet Discharge Activity: Resume usual activity Coding Level of Care Code ED Putty Glazer for Solis Mejias
[2025-02-17 18:54] LABS: Hematocrit 48.3 % (37-53); Hemoglobin 16.30 g/dL (11.27-16.99); Mean Corpuscular HGB Conc 33.7 g/dL (30-55); Mean Corpuscular Hemoglobin 30.0 pg (27-33); Mean Corpuscular Volume 88.8 fl (82-101); Nucleated Red Blood Cells % 0 %; Platelet Count 208 10^3/cmm (157-399); Red Blood Count 5.44 10^6/uL (3.85-5.65); White Blood Count 6.23 10^3/uL (3.29-11.43)
[2025-02-17 19:24] LABS: Alanine Aminotransferase 11 U/L (0-41); Albumin Level 5.0 g/dL (3.5-5.2); Alkaline Phosphatase 104 U/L (40-130); Anion Gap 16.7 (5-19); Aspartate Amino Transferase 15 U/L (0-40); Blood Urea Nitrogen 9 mg/dL (6-20); Calcium 9.5 mg/dL (8.5-10.5); Carbon Dioxide 26 mmol/L (22-29); Chloride 101 mmol/L (98-107); Creatinine Clr Calc Pharmacy 114.9093; Globulin 2.7 g/dL (1.3-4.6); Glucose 87 mg/dL (65-115); Osmolality Calculated 288 mOsm/kg (285-295); Potassium 3.7 mmol/L (3.5-5.1); Sodium 140 mmol/L (136-145); Thyroid Stimulating Hormone 0.58 uIU/mL (0.27-4.20); Total Protein 7.7 g/dL (6.6-8.7)
[2025-02-17 19:25] LABS: Acetaminophen < 5.0 ug/mL (10-30); Alcohol Level < 10 mg/dL (0-10); Salicylate < 0.3 mg/dL (3-10)
[2025-02-17 19:41] LABS: Glucose Urine UA Negative (Normal); Nitrate Urine Negative (Negative); Specific Gravity, Urine 1.009 (1.005-1.030)
[2025-02-17 19:46] LABS: Add Urine Microscopic? YES
[2025-02-17 19:50] LABS: PCP Screen Urine Negative (Negative)
[2025-02-17 21:07] VITALS: BP 123/75; PULSE 82; O2SAT 100
[2025-02-17 21:50] VITALS: BP 124/81; PULSE 70; RESP 18; TEMP 36.6; O2SAT 100
--- NOTE | 2025-02-17 22:05 | PC.NURSE ---
96 HH Pt served with copy of 96 hour hold by this RN and security. Pt sitting up in bed, calm and A&Ox3. Pt stated that he has been placed under a 96 hour hold in the past and has no additional questions at this time.
[2025-02-18 06:00] VITALS: BP 104/78; PULSE 85; RESP 18; TEMP 36.5; O2SAT 100
[2025-02-18 14:00] VITALS: BP 114/80; PULSE 76; RESP 16; TEMP 36.9; O2SAT 99
--- NOTE | 2025-02-18 14:55 | P.NPUHP_ITS ---
Providers/Chief Complaint 2 Admitting Physician: Bg Huizar MD Chief Complaint: mhe HPI NPU History of Present Illness Isamar Baca is a 24 year old male with a history of schizophreniform disorder along with depression who presented to the emergency department reportedly after the police had picked him up from home and brought him to the [facility] emergency department for further evaluation on a 24-hour hold. The patient's mother had reported that the patient had not been eating and losing weight and had been isolating himself in his bedroom only to leave to the restroom. She reports that there was an altercation at which time the patient had verbalized threats to kill her. The patient had reported that he had not taken the medication for more than a year after his discharge in July 2023 from the neuropsychiatric unit here. The patient on interview today reports that he continues to struggle with depression. He reports limited appetite and low energy. He reports that he is having frequent arguments with his mother and states that he plans on moving out of his house. He states that he has been unable to keep his job. He minimizes any suicidal thoughts. He reports that he struggles with concentration. The patient reports no thoughts of wanting to harm himself or his mother. He reports that he continues to feel depressed. He reports that he has not been taking any medications. He had reported recently breaking his bone in his right pinky after he had punched a wall. He denies any auditory or visual hallucinations. He denied any manic symptoms. He denied any auditory hallucinations or visual hallucinations. He denied any recent drug use other than using marijuana on a daily basis. Psychiatric history: The patient's most recent inpatient psychiatric hospitalization was in July 2023 here at the [facility]. He is currently not receiving any outpatient psychotherapy. Previous medications include Prozac, Abilify, and Remeron. Substance abuse history: He reports marijuana use only on a daily basis for several years. Medical history: Notable for recent right metacarpal fracture fifth digit with surgical intervention Medications: None Family psychiatric history: Dementia Social History: Recent update: He is currently unemployed after quitting his job and is not attending college. He lives with his mother. His father lives in the [place]. His parents are . He reports not being and has no children. Excerpt from NPU Discharge summary from 08/02/23 Discharge Diagnosis (1) Psychosis: Status: Resolved (2) Schizophreniform disorder: Status: Acute (3) Depression: Status: Acute Reason for Visit 96 hr hold Brief History: History of Present Illness Isamar Baca is a 23 year old male who presented to the emergency department with the following report: Chief complaint: Psychiatric Symptoms Stated complaint: 96 hr hold Time Seen by Provider: 07/25/23 19:10 Source: patient and police Limitations: no limitations History of Present Illness: 23-year-old male is here with police under 96-hour hold. Patient states that he has been quite depressed he has been withdrawn in his room he has not been taking his omeprazole. Patient's mother filled out a 96 because she is concerned about his severe depression he denies SI or HI to me. He is quite withdrawn. Associated symptoms: Deny chest pain, dyspnea, headache(s), nausea, rash or vomiting. He was admitted to the neuropsychiatric unit for definitive treatment of those issues. He is known to this senior technical writer from his last hospitalization in November through December 2022 and an excerpt of that discharge summary is included below for historical context. He denies substantive changes but does report that he did discontinue his medication after about a 4 to 6 weeks after discharge. He presents with similar complaints except for a stronger presentation of depression. He continues to have significant issues with nutrition which we will monitor closely during this stay. He presents reporting that he has no explanation for what happened. He reports that he just started feeling more depressed and started getting more isolative. He reports staying in his room and eating less and having no motivation to do things that we talked about the last time he was here including getting a job or going to school or doing anything that moves his dial forward. He reports that he thinks the medication has been helping before he stopped but had no explanation for why he stopped but was very clear that he is feeling depression with low mood, feelings of hopelessness/helplessness and worthlessness. He reports sleep difficulties and appetite suppression. He denies suicidality but does report that he is not enjoying things as much anymore. We discussed the risk benefits and alternatives of starting an antidepressant and considering restarting Abilify and he understood and agreed to proceed as is documented in this note. Per his 12/26/2022 [facility] inpatient psychiatric discharge summary: Discharge Diagnosis (1) Psychosis: Status: Acute (2) Schizophreniform disorder: Status: Acute Reason for Visit Reason for Visit: 96 Hold Brief History: History of Present Illness Isamar Baca is a 22 year old male who presented to the emergency department with the following report: Chief Complaint: Psychiatric Symptoms Stated Complaint: 96 Hold Time Seen by Provider: 12/08/22 15:20 Source: patient Mode of arrival: other (Accompanied by law enforcement) History of Present Illness: 22-year-old male brought into the emergency room and accompanied by police. Family filled out 96-hour paperwork called and had certified at the court house. We read the patient the concerns from the affidavits in his responses simply shrugged his shoulders he does not feel these are big issues he denies any suicidal or homicidal ideation patient is moderately cachectic he does admit he has been losing weight lately when asked him about not taking care of himself he got a little bit teary-eyed and emotional but he was not confrontational. He denies suicidal or homicidal ideation every time he is asked. He states he simply does not understand why he was here he denies previously being hospitalized for mental health issues he has not seen by psychiatry he is not currently on any medications. No auditory or visual hallucinations. Associated symptoms: Deny auditory hallucinations, visual hallucinations, delusions, depression, homicidal ideation, suicidal ideation or racing thoughts. He was admitted to the neuropsychiatric unit for definitive treatment of those issues. He presents today reporting that he has never been in a psychiatric hospital or receive psychiatric care. He has never been on psychiatric medications now or in the past and reports he does not know why he is here on a 96-hour hold. We discussed the affidavits suggesting that he has lost considerable amount of weight and is not taking care of himself and he only acknowledges that he has lost considerable weight recently. He reports that he vapes and that started in the last year or so but denied alcohol marijuana or any other illicit drug use. He has never been to rehab or had a DUI denies any drug and alcohol charges. He reports that he has never had any psychiatric symptoms that he is aware of and had no explanation for the sudden change in weight though he reports he is always been thin nor the recent change in his self-care. We discussed needing to reach out to his family for some collateral information which he did not refuse. Patient denied symptoms consistent with depression, anxiety, schizophrenia, bipolar, ADHD, PTSD or personality disorders. Psychiatric history: As above. Substance abuse history: As above. Family history: He denies any mental health or addiction issues that run in the family and denied any suicide attempts or completions in his family. Developmental history: He reports that he had no issues at and reports that he learned to walk and talk and met his developmental milestones on time. He reports that he did not need speech therapy, learning support, emotional support or special education classes. Psychosocial history: He reports that his parents were together when he was born but they did split up. He reports that his parents are both from [place]. He reports that he has a younger brother that is a product of that same union and that his mother does not have any other children but that his father has 2 other children. He reports that his childhood was fine and that there was no neglect or emotional, physical or sexual abuse. He denied any child protective services or any traumatic events throughout his life he denied any symptoms consistent with PTSD nightmares or flashbacks etc. He endorsed getting to the 10th grade and getting his GED and doing some college courses. He reports that he is heterosexual and his longest relationship was 3 years. He has never been , has never had children, has never been in the and he endorses being a Judaism. 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 Because that was in [place]. He reports he currently lives in a house with his mother and one of her coworkers. Legal history: He denied any legal peril. Medical history: He denies any issues other than his recent significant weight loss. Hospital Course During the hospitalization, the patient had routine laboratory studies which were within normal limits except for a few outliers. Additionally, there was a general medical evaluation which was also within normal limits and revealed no new acute processes. At the time of discharge, lethality was denied and psychosis was resolving. Mood and anxiety were well managed. The patient was placed on a 21-day hold out of concerns regarding the patient initially not wanting to take medication in the extreme weight loss. Patient had dietary consult which helped the patient in regards to refeeding. He was able to slowly gain weight while he was here on the unit as he had reached a weight up to a peak of 98 pounds. He had been started on Abilify at 5 mg daily and this was titrated up to a dose of 20 mg prior to discharge with noted improvement in motivation and improved ability regarding execution and completion of daily tasks including self-care. The patient endorsed a plan to avoid all drugs of abuse and follow up with the aftercare recommendations of the treatment team. The patient was evaluated and deemed to be absent credible lethality and had achieved the maximum benefit from an inpatient hospitalization, and so was discharged. Hospital Course Hospital Course During the hospitalization, the patient had routine laboratory studies which were within normal limits except for a few outliers.? Additionally, there was a general medical evaluation which was also within normal limits and revealed no new acute processes.? At the time of discharge, lethality was denied and psychosis was absent at the time of discharge. Mood and anxiety were well managed.? The patient endorsed a plan to avoid all drugs of abuse and follow up with the aftercare recommendations of the treatment team.? The patient was evaluated and deemed to be absent credible lethality and had achieved the maximum benefit from an inpatient hospitalization, and so was discharged. ?Prozac was initiated and titrated up to a dose of 20mg daily and remeron was added to improve appetite and to help with anxiety. Furthermore zyprexa was added adjunctively to treat his depression and insomnia with improved sleep reported and improving mood at the time of discharge. Meds NPU Home Medications ?Medication ?Instructions ?Recorded ?Confirmed ?Last Taken ?Type No Known Home Medications 02/18/2501/24 Unknown History Allergies Allergy/AdvReac Type Severity Reaction Status Date / Time No Known Allergies Allergy Verified 02/06/25 11:34 PFS NPU 2 PFS: Medical History (Updated 02/17/25 @ 20:16 by YASMEEN Dumont) Schizophreniform disorder Moderate major depression Family History Grandfather Dementia Social History Smoking and tobacco/nicotine status: current every day tobacco/nicotine user e- cigarettes E-Cigarette Details: vaporizer device, with nicotine and without nicotine Alcohol intake: never Substance/Drug Use: never Adopted: No service: No Current occupational exposures/hazards: No Current gender identity: Male Mental Status Exam 2 MSE Comments: This is a underweight -[place] male in hospital scrubs with fair grooming and normal eye contact. There is no evidence of any abnormal involuntary motor movements other than mild psychomotor retardation. He was pleasant and cooperative on interview and appeared in mild distress. His speech was normal in rate, rhythm, and prosody. His mood was described as depressed. His affect was mood congruent and restricted in range. Thought process was linear, logical, and goal-directed. Thought content: Patient denied suicidal or homicidal ideation, There was no evidence of delusional thinking. He did not appear to be responding to internal stimuli. He.denied any auditory or visual hallucinations. Attention and concentration appeared intact and memory seemed reliable, but none were formally tested. He is alert and oriented to person, place and time. Insight was fair. His judgment was poor. Impulse control appears to be fair. Vitals/I&O/Wt Last Vital Signs Temp 98.4 F 02/18/25 14:00 Pulse 76 02/18/25 14:00 Resp 16 02/18/25 14:00 BP 114/80 02/18/25 14:00 Pulse Ox 99 02/18/25 14:00 O2 Del Method Room Air 02/18/25 14:00 02/17/25 02/18/25 02/18/25 22:59 06:59 14:59 Intake Total 0 / 0 Balance 0 / 0 Weight last 48 hrs Weight 50.802 kg Data NPU 02/17/25 18:39 02/17/25 18:39 A&P Assessment and plan 1. Psychosis: 2. Schizophreniform disorder: 3. Depression: Plan: This is a 24-year-old male of descent who presents again on a 96- hour hold with history of psychosis and schizophreniform disorder again presenting this time with endorsed depression, off of medication but again seeming invested in getting help and treatment. 1. Restart Abilify 10mg daily. 2. Continue every 15 minute checks for safety. 3. Encourage individual, group and milieu therapy. 4. Will attempt to gather collateral information 5. Restart Remeron 15mg at night. 6. Continue to monitor under a 96 hour hold. PDMP PDMP Reviewed: Not Reviewed Involuntary Hold Information 2 Hold Status: Legal Status: 96 Hour Hold 96 Hour Hold: 96 Hour Involuntary Admission: Yes Attestations NPU 2 Medical Necessity Statement*: Inpatient hospitalization is medically necessary and the clinically appropriate intervention at this time. We will monitor medications and make changes as indicated. He will be in the hospital for over 2 midnights. The patient's likely length of stay is 4 to 6 days. Coding Level of Care Code Acute Code for g Fwd Diagnoses Psychosis F29 Schizophreniform disorder F20.81 Depression F32.A
[2025-02-18 21:12] VITALS: BP 113/84; PULSE 94; RESP 17; TEMP 36.7; O2SAT 99
[2025-02-19 06:00] VITALS: BP 120/85; PULSE 88; RESP 17; TEMP 36.7; O2SAT 98
--- NOTE | 2025-02-19 13:46 | W.PM.NPUPNS ---
Subjective NPU Subjective: 24-year-old male with a history of depression and psychosis admitted with complaints of depressed mood and suicidal ideation. He had reported a history of social anxiety symptoms as well. He had reported that he had been unable to keep a job for any extended period of time. He reported often feeling bored and often reported feeling as if he were the center of attention. He had complained of having problems where he felt as if other people were looking at him and often making negative comments about him. He had reported having some abdominal discomfort today and stated that he continued to have desire to eat but reported that he had been losing weight. The patient was able to attend groups. He had denied hearing any voices currently at this time. The patient had reported that he had not remained on his outpatient medications due to cost as he had stated that the cost of the medications were several thousand dollars. It was uncertain as to whether that was the intramuscular Invega shot or Abilify sustain a shot or the monthly pills. Mental Status Exam MSE Comments: This is a underweight -Sloven[place] male in hospital scrubs with fair grooming and normal eye contact. There is no evidence of any abnormal involuntary motor movements other than mild psychomotor retardation. He was pleasant and cooperative on interview and appeared in mild distress. His speech was normal in rate, rhythm, and prosody. His mood was described as depressed. His affect was flat and mood congruent. Thought process was linear, logical, and goal-directed. Thought content: Patient denied suicidal or homicidal ideation, There was no evidence of delusional thinking. He did not appear to be responding to internal stimuli. He denied any auditory or visual hallucinations. Attention and concentration appeared intact and memory seemed reliable, but none were formally tested. He is alert and oriented to person, place and time. Insight was fair. His judgment was poor. Impulse control appears to be fair. Vitals/I&O/Wt Last Vital Signs Temp 98.0 F 02/19/25 06:00 Pulse 88 02/19/25 06:00 Resp 17 02/19/25 06:00 BP 120/85 02/19/25 06:00 Pulse Ox 98 02/19/25 06:00 O2 Del Method Room Air 02/19/25 06:00 Weight last 48 hrs Weight 50.802 kg Data NPU 02/17/25 18:39 02/17/25 18:39 A&P Assessment and plan 1. Psychosis: 2. Schizophreniform disorder: 3. Depression: Plan: This is a 24-year-old male of descent who presents again on a 96-hour hold with history of psychosis and schizophreniform disorder again presenting this time with endorsed depression, off of medication but again seeming invested in getting help and treatment. 1. Continue Abilify 10mg daily. 2. Continue every 15 minute checks for safety. 3. Encourage individual, group and milieu therapy. 4. Will attempt to gather collateral information 5. Continue Remeron 15mg at night with increase to 30mg at night in 1-2 days. 6. Continue to monitor under a 96 hour hold. PDMP PDMP Reviewed: Not Reviewed Involuntary Hold Information Hold Status: Legal Status: 96 Hour Hold Date/Time Hold Expires: 02/22/2025 @ 0001 96 Hour Hold: 96 Hour Involuntary Admission: Yes Attestations NPU Medical Necessity Statement*: Inpatient hospitalization is medically necessary and the clinically appropriate intervention at this time. We will monitor medications and make changes as indicated. The patient's likely length of stay is 4 to 6 days. Coding Level of Care Code Acute Code for [facility] Fwd Diagnoses Psychosis F29 Schizophreniform disorder F20.81 Depression F32.A
[2025-02-19 14:00] VITALS: BP 109/73; PULSE 107; RESP 16; TEMP 36.7; O2SAT 98
[2025-02-19 19:55] VITALS: BP 123/85; PULSE 88; RESP 18; TEMP 36.9; O2SAT 97
[2025-02-20 06:00] VITALS: BP 132/86; PULSE 95; RESP 18; TEMP 36.4; O2SAT 97
--- NOTE | 2025-02-20 13:01 | W.PM.NPUPNS ---
Subjective NPU Subjective: 24-year-old male with a history of depression and psychosis admitted with complaints of depressed mood and suicidal ideation. The patient had reported that he was feeling better. He had continued to be somewhat anxious on the milieu and avoidant of people but he was able to attend groups. He had reported having continued struggles at home with his mother. He had reported that his suicidal thoughts were no longer present. He had been able to eat well without any issues. The patient reported adequate sleep. He had stated that the medications became exorbitant in regards to cost and this was his reason that he stated that he had stopped taking his medication. He had reported having longstanding struggles with sustaining work and motivation for long periods of time. Mental Status Exam MSE Comments: This is a underweight -[place] male in hospital scrubs with fair grooming and normal eye contact. There is no evidence of any abnormal involuntary motor movements other than mild psychomotor retardation. He was pleasant and cooperative on interview and appeared in mild distress. His speech was normal in rate, rhythm, and prosody. His mood was described as a little better. His affect was restricted in range and mood congruent. Thought process was linear, logical, and goal-directed. Thought content: Patient denied suicidal or homicidal ideation, There was no evidence of delusional thinking. He did not appear to be responding to internal stimuli. He denied any auditory or visual hallucinations. Attention and concentration appeared intact and memory seemed reliable, but none were formally tested. He is alert and oriented to person, place and time. Insight was fair. His judgment was poor. Impulse control appears to be fair. Vitals/I&O/Wt Last Vital Signs Temp 97.5 F L 02/20/25 06:00 Pulse 95 02/20/25 06:00 Resp 18 02/20/25 06:00 BP 132/86 02/20/25 06:00 Pulse Ox 97 02/20/25 06:00 O2 Del Method Room Air 02/20/25 06:00 02/19/25 02/20/25 02/20/25 22:59 06:59 14:59 Intake Total 0 / 0 Balance 0 / 0 Data NPU 02/17/25 18:39 02/17/25 18:39 A&P Assessment and plan 1. Psychosis: 2. Schizophreniform disorder: 3. Depression: Plan: This is a 24-year-old male of descent who presents again on a 96-hour hold with history of psychosis and schizophreniform disorder again presenting this time with endorsed depression, off of medication but again seeming invested in getting help and treatment. 1. Continue Abilify 10mg daily. 2. Continue every 15 minute checks for safety. 3. Encourage individual, group and milieu therapy. 4. Will attempt to gather collateral information 5. Increase Remeron to 30 mg at night. 6. Continue to monitor under a 96 hour hold. PDMP PDMP Reviewed: Not Reviewed Involuntary Hold Information Hold Status: Legal Status: 96 Hour Hold Date/Time Hold Expires: 02/22/2025 @ 0001 96 Hour Hold: 96 Hour Involuntary Admission: Yes Attestations NPU Medical Necessity Statement*: Inpatient hospitalization is medically necessary and the clinically appropriate intervention at this time. We will monitor medications and make changes as indicated. The patient's likely length of stay is 4 to 6 days. Coding Level of Care Code Acute Code for [facility] Fwd Diagnoses Psychosis F29 Schizophreniform disorder F20.81 Depression F32.A
[2025-02-20 14:00] VITALS: BP 149/84; PULSE 109; RESP 18; TEMP 36.8; O2SAT 98
[2025-02-20 21:00] VITALS: BP 132/92; PULSE 102; RESP 18; TEMP 37.1; O2SAT 97
[2025-02-21 03:05] VITALS: BP 132/96; PULSE 108; RESP 18; TEMP 36.4; O2SAT 98
--- NOTE | 2025-02-21 12:38 | W.PM.NPUDCS ---
Diagnoses at Discharge Discharge Diagnosis 1. Psychosis: 2. Schizophreniform disorder: Reason for Visit Reason for Visit: mhe Brief History: History of Present Illness Isamar Baca is a 24 year old male with a history of schizophreniform disorder along with depression who presented to the emergency department reportedly after the police had picked him up from home and brought him to the [facility] emergency department for further evaluation on a 24-hour hold. The patient's mother had reported that the patient had not been eating and losing weight and had been isolating himself in his bedroom only to leave to the restroom. She reports that there was an altercation at which time the patient had verbalized threats to kill her. The patient had reported that he had not taken the medication for more than a year after his discharge in July 2023 from the neuropsychiatric unit here. The patient on interview today reports that he continues to struggle with depression. He reports limited appetite and low energy. He reports that he is having frequent arguments with his mother and states that he plans on moving out of his house. He states that he has been unable to keep his job. He minimizes any suicidal thoughts. He reports that he struggles with concentration. The patient reports no thoughts of wanting to harm himself or his mother. He reports that he continues to feel depressed. He reports that he has not been taking any medications. He had reported recently breaking his bone in his right pinky after he had punched a wall. He denies any auditory or visual hallucinations. He denied any manic symptoms. He denied any auditory hallucinations or visual hallucinations. He denied any recent drug use other than using marijuana on a daily basis. Psychiatric history: The patient's most recent inpatient psychiatric hospitalization was in July 2023 here at the [facility]. He is currently not receiving any outpatient psychotherapy. Previous medications include Prozac, Abilify, and Remeron. Substance abuse history: He reports marijuana use only on a daily basis for several years. Medical history: Notable for recent right metacarpal fracture fifth digit with surgical intervention Medications: None Family psychiatric history: Dementia Social History: Recent update: He is currently unemployed after quitting his job and is not attending college. He lives with his mother. His father lives in the [place]. His parents are . He reports not being and has no children. Excerpt from NPU Discharge summary from 08/02/23 Discharge Diagnosis (1) Psychosis: Status: Resolved (2) Schizophreniform disorder: Status: Acute (3) Depression: Status: Acute Reason for Visit 96 hr hold Brief History: History of Present Illness Isamar Baca is a 23 year old male who presented to the emergency department with the following report: Chief complaint: Psychiatric Symptoms Stated complaint: 96 hr hold Time Seen by Provider: 07/25/23 19:10 Source: patient and police Limitations: no limitations History of Present Illness: 23-year-old male is here with police under 96-hour hold. Patient states that he has been quite depressed he has been withdrawn in his room he has not been taking his omeprazole. Patient's mother filled out a 96 because she is concerned about his severe depression he denies SI or HI to me. He is quite withdrawn. Associated symptoms: Deny chest pain, dyspnea, headache(s), nausea, rash or vomiting. He was admitted to the neuropsychiatric unit for definitive treatment of those issues. 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 He denies substantive changes but does report that he did discontinue his medication after about a 4 to 6 weeks after discharge. He presents with similar complaints except for a stronger presentation of depression. He continues to have significant issues with nutrition which we will monitor closely during this stay. He presents reporting that he has no explanation for what happened. He reports that he just started feeling more depressed and started getting more isolative. He reports staying in his room and eating less and having no motivation to do things that we talked about the last time he was here including getting a job or going to school or doing anything that moves his dial forward. He reports that he thinks the medication has been helping before he stopped but had no explanation for why he stopped but was very clear that he is feeling depression with low mood, feelings of hopelessness/helplessness and worthlessness. He reports sleep difficulties and appetite suppression. He denies suicidality but does report that he is not enjoying things as much anymore. We discussed the risk benefits and alternatives of starting an antidepressant and considering restarting Abilify and he understood and agreed to proceed as is documented in this note. Per his 12/26/2022 [facility] inpatient psychiatric discharge summary: Discharge Diagnosis (1) Psychosis: Status: Acute (2) Schizophreniform disorder: Status: Acute Reason for Visit Reason for Visit: 96 Hold Brief History: History of Present Illness Isamar Baca is a 22 year old male who presented to the emergency department with the following report: Chief Complaint: Psychiatric Symptoms Stated Complaint: 96 Hold Time Seen by Provider: 12/08/22 15:20 Source: patient Mode of arrival: other (Accompanied by law enforcement) History of Present Illness: 22-year-old male brought into the emergency room and accompanied by police. Family filled out 96-hour paperwork called and had certified at the court [place]. We read the patient the concerns from the affidavits in his responses simply shrugged his shoulders he does not feel these are big issues he denies any suicidal or homicidal ideation patient is moderately cachectic he does admit he has been losing weight lately when asked him about not taking care of himself he got a little bit teary-eyed and emotional but he was not confrontational. He denies suicidal or homicidal ideation every time he is asked. He states he simply does not understand why he was here he denies previously being hospitalized for mental health issues he has not seen by psychiatry he is not currently on any medications. No auditory or visual hallucinations. Associated symptoms: Deny auditory hallucinations, visual hallucinations, delusions, depression, homicidal ideation, suicidal ideation or racing thoughts. He was admitted to the neuropsychiatric unit for definitive treatment of those issues. He presents today reporting that he has never been in a psychiatric hospital or receive psychiatric care. He has never been on psychiatric medications now or in the past and reports he does not know why he is here on a 96-hour hold. We discussed the affidavits suggesting that he has lost considerable amount of weight and is not taking care of himself and he only acknowledges that he has lost considerable weight recently. He reports that he vapes and that started in the last year or so but denied alcohol marijuana or any other illicit drug use. He has never been to rehab or had a DUI denies any drug and alcohol charges. He reports that he has never had any psychiatric symptoms that he is aware of and had no explanation for the sudden change in weight though he reports he is always been thin nor the recent change in his self-care. We discussed needing to reach out to his family for some collateral information which he did not refuse. Patient denied symptoms consistent with depression, anxiety, schizophrenia, bipolar, ADHD, PTSD or personality disorders. Psychiatric history: As above. Substance abuse history: As above. Family history: He denies any mental health or addiction issues that run in the family and denied any suicide attempts or completions in his family. Developmental history: He reports that he had no issues at and reports that he learned to walk and talk and met his developmental milestones on time. He reports that he did not need speech therapy, learning support, emotional support or special education classes. Psychosocial history: He reports that his parents were together when he was born but they did split up. He reports that his parents are both from [place]. He reports that he has a younger brother that is a product of that same union and that his mother does not have any other children but that his father has 2 other children. He reports that his childhood was fine and that there was no neglect or emotional, physical or sexual abuse. He denied any child protective services or any traumatic events throughout his life he denied any symptoms consistent with PTSD nightmares or flashbacks etc. He endorsed getting to the 10th grade and getting his GED and doing some college courses. He reports that he is heterosexual and his longest relationship was 3 years. 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 Because that was in [place]. He reports he currently lives in a house with his mother and one of her coworkers. Legal history: He denied any legal peril. Medical history: He denies any issues other than his recent significant weight loss. Hospital Course During the hospitalization, the patient had routine laboratory studies which were within normal limits except for a few outliers. Additionally, there was a general medical evaluation which was also within normal limits and revealed no new acute processes. At the time of discharge, lethality was denied and psychosis was resolving. Mood and anxiety were well managed. The patient was placed on a 21-day hold out of concerns regarding the patient initially not wanting to take medication in the extreme weight loss. Patient had dietary consult which helped the patient in regards to refeeding. He was able to slowly gain weight while he was here on the unit as he had reached a weight up to a peak of 98 pounds. He had been started on Abilify at 5 mg daily and this was titrated up to a dose of 20 mg prior to discharge with noted improvement in motivation and improved ability regarding execution and completion of daily tasks including self-care. The patient endorsed a plan to avoid all drugs of abuse and follow up with the aftercare recommendations of the treatment team. The patient was evaluated and deemed to be absent credible lethality and had achieved the maximum benefit from an inpatient hospitalization, and so was discharged. Hospital Course Hospital Course During the hospitalization, the patient had routine laboratory studies which were within normal limits except for a few outliers.? Additionally, there was a general medical evaluation which was also within normal limits and revealed no new acute processes.? At the time of discharge, lethality was denied and psychosis was absent at the time of discharge. Mood and anxiety were well managed.? The patient endorsed a plan to avoid all drugs of abuse and follow up with the aftercare recommendations of the treatment team.? The patient was evaluated and deemed to be absent credible lethality and had achieved the maximum benefit from an inpatient hospitalization, and so was discharged. ?Prozac was initiated and titrated up to a dose of 20mg daily and remeron was added to improve appetite and to help with anxiety. Furthermore zyprexa was added adjunctively to treat his depression and insomnia with improved sleep reported and improving mood at the time of discharge. Hospital Course Hospital Course The patient was restarted on Abilify and Remeron as Abilify was titrated to a dose of 10 mg daily and Remeron was increased up to a dose of 30 mg at night. He had reported having some insomnia and trazodone was added to his outpatient medication regimen. He was agreeable to continuing on these medications and reported some improvement in mood. His appetite appeared normal and he reported interest in following up with an outpatient psychotherapist as well. During the hospitalization, the patient had routine laboratory studies which were within normal limits except for a few outliers.? Additionally, there was a general medical evaluation which was also within normal limits and revealed no new acute processes.? At the time of discharge, lethality was denied and psychosis was absent.? Mood and anxiety were well managed.? The patient endorsed a plan to avoid all drugs of abuse and follow up with the aftercare recommendations of the treatment team.? The patient was evaluated and deemed to be absent credible lethality and had achieved the maximum benefit from an inpatient hospitalization, and so was discharged. ? Involuntary Hold Information Hold Status: Legal Status: 96 Hour Hold Date/Time Hold Expires: 02/22/2025 @ 0001 96 Hour Hold: 96 Hour Involuntary Admission: Yes Mental Status Exam MSE Comments: This is a underweight -Citizen Of [place] male in hospital scrubs with fair grooming and normal eye contact. There is no evidence of any abnormal involuntary motor movements appreciated. He was pleasant and cooperative on interview and appeared in mild distress. His speech was normal in rate, rhythm, and prosody. His mood was described as a little better. His affect was restricted in range and mood congruent. Thought process was linear, logical, and goal-directed. Thought content: Patient denied suicidal or homicidal ideation, There was no evidence of delusional thinking. He did not appear to be responding to internal stimuli. He denied any auditory or visual hallucinations. Attention and concentration appeared intact and memory seemed reliable, but none were formally tested. He is alert and oriented to person, place and time. Insight was fair. His judgment was improved. Impulse control appears to be fair. Discharge Data Studies Completed and Pending: Laboratory Results WBC 6.23 10^3/uL (3.2 9-11.43) 02/17/25 18:39 RBC 5.44 10^6/uL (3.8 5-5.65) 02/17/25 18:39 Hgb 16.30 g/dL (11.27 -16.99) 02/17/25 18:39 Hct 48.3 % (37-53) 02/17/25 18:39 MCV 88.8 fl (82-101) 02/17/25 18:39 MCH 30.0 pg (27-33) 02/17/25 18:39 MCHC 33.7 g/dL (30-55) 02/17/25 18:39 RDW 12.2 % (12.1-15.1 ) 02/17/25 18:39 Plt Count 208 10^3/cmm (157 -399) 02/17/25 18:39 MPV 9.6 fL (7.4-10.4) 02/17/25 18:39 Neut % (Auto) 50.5 % 02/17/25 18:39 Lymph % (Auto) 40.0 % 02/17/25 18:39 [place] % (Auto) 8.0 % 02/17/25 18:39 Eos % (Auto) 1.0 % 02/17/25 18:39 Baso % (Auto) 0.3 % 02/17/25 18:39 Neut # (Auto) 3.15 10^3/uL (1.8 -7.7) 02/17/25 18:39 Lymph # (Auto) 2.5 10^3/uL (0.8- 4.8) 02/17/25 18:39 [place] # (Auto) 0.5 10^3/uL (0.2- 0.9) 02/17/25 18:39 Eos # (Auto) 0.1 10^3/uL (0.0- 0.8) 02/17/25 18:39 Baso # (Auto) 0.0 10^3/uL (0.0- 0.1) 02/17/25 18:39 Nucleated RBC % (a uto) 0 % 02/17/25 18:39 Nucleated RBCs # 0.0 /100WBC 02/17/25 18:39 Sodium 140 mmol/L (136-1 45) 02/17/25 18:39 Potassium 3.7 mmol/L (3.5-5 .1) 02/17/25 18:39 Chloride 101 mmol/L (98-10 7) 02/17/25 18:39 Carbon Dioxide 26 mmol/L (22-29) 02/17/25 18:39 Anion Gap 16.7 (5-19) 02/17/25 18:39 BUN 9 mg/dL (6-20) 02/17/25 18:39 Creatinine 0.7 mg/dL (0.7-1. 2) 02/17/25 18:39 GFR Calculation 164.9 mL/min (90- 130) H 02/17/25 18:39 Glucose 87 mg/dL (65-115) 02/17/25 18:39 Calculated Osmolal ity 288 mOsm/kg (285- 295) 02/17/25 18:39 Calcium 9.5 mg/dL (8.5-10 .5) 02/17/25 18:39 Total Bilirubin 0.6 mg/dL (0.15-1 .2) 02/17/25 18:39 AST 15 U/L (0-40) 02/17/25 18:39 ALT 11 U/L (0-41) 02/17/25 18:39 Alkaline Phosphata se 104 U/L (40-130) 02/17/25 18:39 Total Protein 7.7 g/dL (6.6-8.7 ) 02/17/25 18:39 Albumin 5.0 g/dL (3.5-5.2 ) 02/17/25 18:39 Globulin 2.7 g/dL (1.3-4.6 ) 02/17/25 18:39 TSH 0.58 uIU/mL (0.27 -4.20) 02/17/25 18:39 Urine Color Yellow (Yellow) 02/17/25 19:28 Urine Appearance Clear (CLEAR) 02/17/25 19:28 Urine pH 6.5 (5-7) 02/17/25 19:28 Ur Specific Gravit y 1.009 (1.005-1.0 30) 02/17/25 19:28 Urine Protein Negative (Negati ve) 02/17/25 19:28 Urine Glucose (UA) Negative (Normal ) 02/17/25 19:28 Urine Ketones Negative (Negati ve) 02/17/25 19:28 Urine Blood Negative (Negati ve) 02/17/25 19:28 Urine Nitrate Negative (Negati ve) 02/17/25 19:28 Urine Bilirubin Negative (Negati ve) 02/17/25 19:28 Urine Urobilinogen 1.0 mg/dL (Negati ve) 02/17/25 19:28 Ur Leukocyte Alva ase Negative (Negati ve) 02/17/25 19:28 Urine RBC 0-2 /hpf (0-2) 02/17/25 19:28 Urine WBC 0-5 /hpf (0-5) 02/17/25 19:28 Ur Squamous Epith Cells 0-5 /hpf (0-5) 02/17/25 19:28 Amorphous Sediment Not Reportable 02/17/25 19:28 Urine Bacteria None seen /hpf (N ONE) 02/17/25 19:28 Hyaline Casts 0-4 /lpf H 02/17/25 19:28 Salicylates < 0.3 mg/dL (3-10 ) L 02/17/25 18:39 Urine Opiates Scre en Negative ng/mL (N egative) 02/17/25 19:28 Acetaminophen < 5.0 ug/mL (10-3 0) L 02/17/25 18:39 Ur Barbiturates Sc reen Negative ng/mL (N egative) 02/17/25 19:28 Ur Phencyclidine S crn Negative ng/mL (N egative) 02/17/25 19:28 Ur Amphetamines Sc reen Negative ng/mL (N egative) 02/17/25 19:28 U Benzodiazepines Scrn Negative ng/mL (N egative) 02/17/25 19:28 Urine Cocaine Scre en Negative ng/mL (N egative) 02/17/25 19:28 U Marijuana (THC) Screen Positive ng/mL (N egative) H 02/17/25 19:28 Ethyl Alcohol < 10 mg/dL (0-10) 02/17/25 18:39 Vitals: Last Vital Signs Temp 97.6 F 02/21/25 03:05 Pulse 108 H 02/21/25 03:05 Resp 18 02/21/25 03:05 BP 132/96 02/21/25 03:05 Pulse Ox 98 02/21/25 03:05 O2 Del Method Room Air 02/21/25 03:05 Discharge Plan Discharge Patient Disposition: Home Condition: Stable Prescriptions: New trazodone 100 mg Tablet 100 mg PO BEDTIME 30 Days Qty: 30 2RF aripiprazole 10 mg Tablet 10 mg PO DAILY 30 Days Qty: 30 2RF mirtazapine 30 mg tablet 30 mg PO BEDTIME 30 Days Qty: 30 2RF Discharge Order = DC NOW: Discharge Order (Routine); Ordered 02/21/25 Ordered By: Bg Huizar Discharge Diet: Usual diet Discharge Activity: Resume usual activity Patient Instructions: Opioid Safety, Patient Portal & Javier Instructions Discharge Attestations NPU Time Spent in Discharge Care*: less than 30 min Specific Discharge Activities: Specific discharge activities: educating patient, discussing with rn case manager/social workers/dc planners and documenting/other paperwork Coding Level of Care Code Acute Code for Chg Fwd Diagnoses Psychosis F29 Schizophreniform disorder F20.81 Depression F32.A
[2025-02-21 14:00] VITALS: BP 134/74; PULSE 88; RESP 16; TEMP 37; O2SAT 100
[2025-02-21 14:11] VITALS: BP 132/96; PULSE 108; RESP 17; TEMP 36.4; O2SAT 99
--- NOTE | 2025-02-21 14:31 | PC.NURSE ---
notified Dr. Huizar of delay in receiving appointment schedule from [facility] for pt to be discharged. stated to attempt to wait for pt to discharge until appointment is made,unless pt radhae (his mother Sanjuana) is at facility to corn picker pt then pt can discharge. . Case management will contact pt with appointment At [phone].
== END 2025-02-21 15:01 | disposition home or self-care (01) | DRG 885 ==
LOC: ER 21:27 → NP 21:31
PROVIDERS: Admitting Provider Psychiatry & Neurology Psychiatry; Emergency Provider Physician Assistant; Visit Provider Psychiatry & Neurology Psychiatry
DX: F29 Unspecified psychosis not due to a substance or known physiological condition (principal); Z68.1 Body mass index [BMI] 19.9 or less, adult; F25.9 Schizoaffective disorder, unspecified; F32.9 Major depressive disorder, single episode, unspecified; T50.906A Underdosing of unspecified drugs, medicaments and biological substances, initial encounter; Z91.128 Patient's intentional underdosing of medication regimen for other reason; R63.6 Underweight; F17.290 Nicotine dependence, other tobacco product, uncomplicated
CPT/HCPCS: 36415; 80053; 80306; 80307; 81001; 84443; 85025; 93005; 97150; 97165; 99285; J9999